=== PATIENT | female | born 1940 | race Caucasian/White ===

== ENCOUNTER 2017-11-22 13:04 | Emergency (ER) | payer MEDICARE, MEDICAID ==
[~2017-11-22] VITALS: Ht 149.9 cm; Wt 95.3 kg
[~2017-11-22 13:04] MED LIST: ACET325T49 PO; ATOR10TA66 PO; BUPR100T15 PO; BUPR100T6 PO; BUSP5TAB59 PO; CETI10TA20 PO; CLON0.1T PO; DILT180C PO; DOCU-143 PO; DULO20CA PO; DULO60CA6 PO; GABA300C PO; HYDR25SU28 RC; KETO5DRO70 OP; LACT1CAP64 PO; LEVE10006 PO; MAGN800O PO; MELA1TAB10 PO; METF1000 PO; METO-387 PO; MULT-301 PO; OMEP20TA7 PO; ONDN4T PO; PIOG30TA38 PO; WARF3TAB PO
--- OUTSIDE RECORDS SUMMARY | 2017-11-22 13:13 | XMS REPORT | CCD ---
Author Author [facility] Organization [facility] Address [address] [place] [address] Phone Care Team Providers Care Carroter Name Role Phone PP Unavailable CCM Unavailable Summary Purpose Interface Exchange Insurance Providers Payer name Policy type / Coverage type Covered green party ID Effective Begin Date Effective End Date WPS Medicare Part B Medicare Part B [id number] Unknown Unknown [place] [employer] Assistance Medicare Part B [id number] Unknown Unknown Family history Mother Diagnosis Age At Onset Cancer Unknown Social History Social History Element Codes Description Effective Dates Marital status Unknown Merle 04/17/2016 Education level Unknown High School Graduate 04/17/2016 Number of children Unknown 5 07/26/2015 Living arrangements Unknown Group Home moved into [facility]107/26/2015 Employment Unknown Retired 07/26/[address]: 3182040 Quit over 10 years ago 07/26/[address]: 725168613 Never drinks alcohol 07/26/2015 Allergies, Adverse Reactions, Alerts Allergies, Adverse Reactions, Alerts data not found Past Medical History Illness Codes Condition Status Onset Date Resolved Date Anemia, unspecified ICD-9: 285.9 ICD-10: D64.9 Active 05/15/2017 Unknown Dysuria ICD-9: 788.1 ICD-10: R30.0 Active 05/14/2017 Unknown Essential (primary) hypertension ICD-9: 401.9 ICD-10: I10 Active 04/16/2016 Unknown Generalized abdominal pain ICD-9: 789.07 ICD-10: R10.84 Active 05/14/2017 Unknown Type 2 diabetes mellitus with other specified complication ICD-9: 250.80 ICD-10: E11.69 Active 04/16/2016 Unknown Impacted cerumen, bilateral ICD-9: 389.8 ICD-10: H61.23 Active 03/28/2016 Unknown Otalgia, right ear ICD -9: 388.70 ICD-10: H92.01 Active 03/28/2016 Unknown Hypertension Unknown Active 07/26/2015 Unknown Problems Condition Codes Effective Dates Condition Status Anemia, unspecified ICD-9: 285.9 ICD-10: D64.9 05/15/2017 Active Dysuria ICD-9: 788.1 ICD-10: R30.0 05/14/2017 Active Essential (primary) hypertension ICD-9: 401.9 ICD-10: I10 04/16/2016 Active Generalized abdominal pain ICD-9: 789.07 ICD-10: R10.84 05/14/2017 Active Type 2 diabetes mellitus with other specified complication ICD-9: 250.80 ICD-10: E11.69 04/16/2016 Active Impacted cerumen, bilateral ICD-9: 389.8 ICD-10: H61.23 03/28/2016 Active Otalgia, right ear ICD -9: 388.70 ICD-10: H92.01 03/28/2016 Active Hypertension Unknown 07/26/2015 Active Medications Medication Codes Instructions Start Date Stop Date Status Fill Instructions Cymbalta 60 mg capsule,delayed release RxNorm: 441220 1 Capsule(s) PO QAM 10/21/2017 04/18/2018 Active Neurontin 300 mg capsule RxNorm: 954391 TAKE ONE CAPSULE BY MOUTH FOUR TIMES A DAY FOR CONVULSIONS 10/21/2017 No Stop Date Active diltiazem CD 180 mg capsule,extended release 24 hr RxNorm: 081127 TAKE ONE CAPSULE BY MOUTH EVERY MORNING FOR HTN 09/24/2017 No Stop Date Active levetiracetam 1,000 mg tablet RxNorm: 910705 TAKE ONE TABLET BY MOUTH 2 TIMES A DAY FOR CONVULSIONS 09/24/2017 No Stop Date Active atorvastatin 10 mg tablet RxNorm: 887669 TAKE ONE TABLET BY MOUTH EVERY DAY AT BEDTIME FOR HYPERLIPIDEMIA 09/24/2017 No Stop Date Active Cymbalta 20 mg capsule,delayed release RxNorm: 517471 1 Capsule(s) PO QPM 09/19/2017 03/17/2018 Active Coumadin 4 mg tablet RxNorm: 855176 1 Tablet(s) PO every other day 08/21/2017 02/16/2018 Active metoprolol succinate ER 25 mg tablet,extended release 24 hr RxNorm: 321653 1 Tablet(s) PO daily 08/12/2017 02/07/2018 Active doxycycline hyclate 100 mg capsule RxNorm: 7113332 1 Capsule(s) PO BID 07/26/2017 07/25/2017 Inactive doxycycline hyclate 100 mg capsule RxNorm: 6401881 1 Capsule(s) PO BID 07/26/2017 08/01/2017 Inactive probiotic BID with antibiotic Actos 30 mg tablet RxNorm: 263776 TAKE ONE TABLET BY MOUTH EVERY DAY AT BEDTIME FOR DM 07/24/2017 08/13/2017 Inactive BuSpar 5 mg tablet RxNorm: 297470 TAKE ONE TABLET BY MOUTH 2 TIMES A DAY FOR ANXIETY 07/15/2017 No Stop Date Active metformin 1,000 mg tablet RxNorm: 016413 1 Tablet(s) PO BID 07/09/2018 Active cyanocobalamin (vit B-12) 1,000 mcg/mL injection solution RxNorm: 699820 1 Milliliter(s) Inj monthly 07/12/201712/08 Active cyanocobalamin (vit B-12) 1,000 mcg/mL injection solution RxNorm: 801605 1 Milliliter(s) Inj monthly 07/12/201707/11 Inactive Cymbalta 60 mg capsule,delayed release RxNorm: 018875 1 Capsule(s) PO QAM 06/14/2017 10/11/2017 Inactive Cymbalta 20 mg capsule,delayed release RxNorm: 171608 1 Capsule(s) PO QPM 06/14/2017 08/28/2017 Inactive Rocephin 500 mg solution for injection RxNorm: 215449 500 Milligram(s) IM daily 05/17/2017 05/23/2017 Inactive Levaquin 500 mg tablet RxNorm: 340046 1 Tablet(s) PO daily 05/16/2017 Inactive Take probiotic BID x7 days levetiracetam 1,000 mg tablet RxNorm: 242800 TAKE ONE TABLET BY MOUTH 2 TIMES A DAY FOR CONVULSIONS 05/15/2017 09/23/2017 Inactive Neurontin 300 mg capsule RxNorm: 074733 TAKE ONE CAPSULE BY MOUTH FOUR TIMES A DAY FOR CONVULSIONS 05/07/2017 10/20/2017 Inactive diltiazem CD 180 mg capsule,extended release 24 hr RxNorm: 738189 TAKE ONE CAPSULE BY MOUTH EVERY MORNING FOR HTN 05/06/2017 09/23/2017 Inactive Coumadin 3 mg tablet RxNorm: 839696 TAKE ONE TABLET BY MOUTH AT BEDTIME 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 05/02/2017 No Stop Date Active Cymbalta 20 mg capsule,delayed release RxNorm: 288865 1 Capsule(s) PO daily 05/02/2017 06/13/2017 Inactive Actos 30 mg tablet RxNorm: 794409 TAKE ONE TABLET BY MOUTH EVERY DAY AT BEDTIME FOR DM 05/02/2017 07/23/2017 Inactive Wellbutrin 100 mg tablet RxNorm: 528229 TAKE 0.5 TABLET (50MG) BY MOUTH 3 TIMES A DAY FOR MAJOR DEPRESSIVE DISORDER 04/30/2017 No Stop Date Active atorvastatin 10 mg tablet RxNorm: 318528 TAKE ONE TABLET BY MOUTH EVERY DAY AT BEDTIME FOR HYPERLIPIDEMIA 04/30/201709/2017 Inactive BuSpar 5 mg tablet RxNorm: 883643 TAKE ONE TABLET BY MOUTH 2 TIMES A DAY FOR ANXIETY 04/29/2017 07/14/2017 Inactive metoprolol succinate ER 25 mg tablet,extended release 24 hr RxNorm: 666013 1 Tablet(s) PO daily 04/24/2017 07/22/2017 Inactive metformin 1,000 mg tablet RxNorm: 823236 1 Tablet(s) PO BID 10/201607/14/2017 Inactive Coumadin 4 mg tablet RxNorm: 687681 1 Tablet(s) PO every other day 04/24/2017 07/22/2017 Inactive hydrocodone 5 mg-acetaminophen 325 mg tablet RxNorm: 969890 1 Tablet(s) PO Q4H as needed 02/15/2017 No Stop Date Active hydrocodone 5 mg-acetaminophen 325 mg tablet RxNorm: 021538 1 Tablet(s) PO Q4H as needed 12/31/2016 02/14/2017 Inactive hydrocodone 5 mg-acetaminophen 325 mg tablet RxNorm: 390379 1 Tablet(s) PO Q4H as needed 11/23/2016 12/30/2016 Inactive hydrocodone 5 mg-acetaminophen 325 mg tablet RxNorm: 286221 1 Tablet(s) PO Q4H as needed 09/03/2016 11/22/2016 Inactive atorvastatin 10 mg tablet RxNorm: 663954 1 Tablet(s) PO QHS 04/29/2017 Inactive Coumadin 3 mg tablet RxNorm: 933436 Tablet(s) TAKE ONE TABLET ON Saturday04/17/2016 05/01/2017 Inactive hydrocodone 5 mg-acetaminophen 325 mg tablet RxNorm: 489482 1 Tablet(s) PO Q4H as needed 04/02/2016 09/02/2016 Inactive hydrocodone 5 mg-acetaminophen 325 mg tablet RxNorm: 475111 1 Tablet(s) PO Q4H as needed 03/28/2016 04/01/2016 Inactive Coumadin 3 mg tablet RxNorm: 263588 TAKE 1 TABLET BY MOUTH DAILY 09/26/2015 03/29/2016 Inactive Generic For:COUMADIN 3 MG TABLET N O T I C E Last quantity doesn't match original quantity Coumadin 3 mg tablet RxNorm: 616518 TAKE 1 TABLET BY MOUTH DAILY 09/13/2015 09/25/2015 Inactive Generic For:COUMADIN 3 MG TABLET N O T I C E PRESCRIPTION PREVIOUSLY AUTHORIZED BY DOCTOR:HEIDI HERNANDEZ Wellbutrin 100 mg tablet RxNorm: 168178 1/2 Tablet(s) PO TID 12/14/2015 Inactive Cipro 500 mg tablet RxNorm: 846943 1 Tablet(s) PO BID 201408/15/2015 Inactive BuSpar 5 mg tablet RxNorm: 035790 TAKE 1 TABLET BY MOUTH TWICE DAILY NEEDED FOR ANXIETY MANAGEMENT 08/06/20152015 Inactive Generic For:BUSPAR 5 MG TABLET N O T I C E PRESCRIPTION PREVIOUSLY AUTHORIZED BY DOCTOR:HEIDI HERNANDEZ iron 325 mg (65 mg iron) tablet RxNorm: 354571 1 Tablet(s) PO daily No Start Date Active Multivitamin & Mineral Formula tablet RxNorm: 1 Tablet(s) PO No Start Date Active Tylenol 8 Hour 650 mg tablet,extended release RxNorm: 2274959 1 Tablet(s) PO TID No Start Date Active omeprazole 20 mg capsule,delayed release RxNorm: 894222 1 Capsule(s) PO daily No Start Date Active Zyrtec 10 mg tablet RxNorm: 9682801 1 Tablet(s) PO daily No Start Date Active melatonin 3 mg tablet RxNorm: 215545 1 Tablet(s) PO QHS No Start Date Active hydrocodone 5 mg-acetaminophen 325 mg tablet RxNorm: 773005 1 Tablet(s) PO Q4H as needed No Start Date 03/27/2016 Inactive levetiracetam 1,000 mg tablet RxNorm: 437937 1 Tablet(s) PO BID No Start Date 05/14/2017 Inactive Coumadin 4 mg tablet RxNorm: 437065 Tablet(s) PO TAKE ONE TABLET DAILY EXCEPT ON SATURDAY No Start Date 04/23/2017 Inactive Cymbalta 60 mg capsule,delayed release RxNorm: 452172 1 Capsule(s) PO daily No Start Date 05/01/2017 Inactive Actos 30 mg tablet RxNorm: 607433 1 Tablet(s) PO daily No Start Date 05/01/2017 Inactive metoprolol succinate ER 25 mg tablet,extended release 24 hr RxNorm: 701446 1 Tablet(s) PO daily No Start Date 2016 Inactive diltiazem CD 180 mg capsule,extended release 24 hr RxNorm: 218528 1 Capsule(s) PO daily No Start Date 05/05/2017 Inactive Neurontin 300 mg capsule RxNorm: 287791 1 Capsule(s) PO QID No Start Date 05/06/2017 Inactive BuSpar 5 mg tablet RxNorm: 531972 1 Tablet(s) PO BID No Start Date 08/05/2015 Inactive Coumadin 3 mg tablet RxNorm: 327891 1 Tablet(s) PO daily No Start Date 09/12/2015 Inactive metformin 1,000 mg tablet RxNorm: 938245 1 Tablet(s) PO BID No Start Date 04/23/2017 Inactive bupropion HCl 100 mg tablet RxNorm: 156547 1 Tablet(s) PO BID No Start Date 04/17/2016 Inactive atorvastatin 10 mg tablet RxNorm: 005887 1 Tablet(s) PO PRN No Start Date 04/16/2016 Inactive Medication Administered No Medication Administered data Immunizations No Immunization data Assessments Condition Codes Effective Dates Anemia, unspecified ICD-10: D64.9 ICD-9: 285.9 05/15/2017 Essential (primary) hypertension ICD-10: I10 ICD-9: 401.9 05/14/2017 Generalized abdominal pain ICD-10: R10.84 ICD-9: 789.07 05/14/2017 Dysuria ICD-10: R30.0 ICD-9: 788.1 05/14/2017 Type 2 diabetes mellitus with other specified complication ICD-10: E11.69 ICD-9: 250.80 05/14/2017 Otalgia, right ear ICD-10: H92.01 ICD-9: 388.70 03/29/2016 Impacted cerumen, bilateral ICD-10: H61.23 ICD-9: 389.8 03/29/2016 Reason For Visit Reason For Visit Effective Dates Notes abdominal pain 05/14/2017 earache 04/17/2016 earache 03/29/2016 cyst 07/26/2015 on the back of her neck Results Observation Observation Code Item Item Code Result Date Tibc Ord40 Iron 59 ug/dl 05/15/2017 Tibc Ord40 UIBC 292 ug/dL 05/15/2017 Tibc Ord40 TIBC 351 ug/dL 05/15/2017 Tibc Ord40 Fe-%Sat 16.8 % 05/15/2017 Ferritin Ord22 FERRITIN 12.8 ng/mL 05/15/2017 B12 Fwo147 B12 108.00 pg/ml 05/15/2017 Comp Metabolic Hde193 NA 140 mEq/L 05/14/2017 Comp Metabolic Xif411 K 4.0 mEq/L 05/14/2017 Comp Metabolic Zsv072 CL 103 mEq/L 05/14/2017 Comp Metabolic Vpx368 CO2 27.0 mEq/L 05/14/2017 Comp Metabolic Vvn721 ANION GAP 14 05/14/2017 Comp Metabolic Hdq327 GLUCOSE 110 mg/dL 05/14/2017 Comp Metabolic Wxj063 Creat 1.1 mg/dL 05/14/2017 Comp Metabolic Tzh240 eGFR 54 ml/min/1.73m2 05/14/2017 Comp Metabolic Fgo646 BUN 20 mg/dL 05/14/2017 Comp Metabolic Bst122 B/C Ratio 18.9 Ratio 05/14/2017 Comp Metabolic Mxl006 CALCIUM 9.2 mg/dL 05/14/2017 Comp Metabolic Vne541 ALK PHOS 69 U/L 05/14/2017 Comp Metabolic Ibp580 AST(SGOT) 11 U/L 05/14/2017 Comp Metabolic Zyj312 ALT(SGPT) 8 U/L 05/14/2017 Comp Metabolic Tbo948 BILI T 0.2 mg/dL 05/14/2017 Comp Metabolic Gab286 ALBUMIN 3.6 g/dL 05/14/2017 Comp Metabolic Yaa413 TPRO 6.1 g/dL 05/14/2017 Comp Metabolic Vqj482 GLOB 2.5 g/dL 05/14/2017 Comp Metabolic Xcb132 A/G Ratio 1.4 Ratio 05/14/2017 Comp Metabolic Qfm429 Osmo 283 mOsmo 05/14/2017 Tsh Ord6 hTSH II 1.44 uIU/mL 05/14/2017 Cbc With Differential Ord2 WBC 7.15 K/ul 05/14/2017 Cbc With Differential Ord2 RBC 3.77 M/ul 05/14/2017 Cbc With Differential Ord2 HGB 10.9 g/dl 05/14/2017 Cbc With Differential Ord2 Neut% 62.2 % 05/14/2017 Cbc With Differential Ord2 HCT 34.5 % 05/14/2017 Cbc With Differential Ord2 MCV 91.5 fl 05/14/2017 Cbc With Differential Ord2 Lymph% 27.3 % 05/14/2017 Cbc With Differential Ord2 [place]% 6.3 % 05/14/2017 Cbc With Differential Ord2 MCH 28.9 pg 05/14/2017 Cbc With Differential Ord2 Eos% 3.9 % 05/14/2017 Cbc With Differential Ord2 MCHC 31.6 pg 05/14/2017 Cbc With Differential Ord2 PLT 326 K/ul 05/14/2017 Cbc With Differential Ord2 Baso% 0.3 % 05/14/2017 Cbc With Differential Ord2 RDW 15.9 % 05/14/2017 Cbc With Differential Ord2 Neut ABS# 4.45 K/ul 05/14/2017 Cbc With Differential Ord2 Lymph ABS# 1.95 K/ul 05/14/2017 Cbc With Differential Ord2 [place] ABS# 0.5 K/ul 05/14/2017 Cbc With Differential Ord2 Eos ABS# 0.3 K/ul 05/14/2017 Cbc With Differential Ord2 Baso ABS# 0.0 K/ul 05/14/2017 Tsh Ord6 hTSH II 2.33 uIU/mL 07/26/2015 Comp Metabolic Fhy783 NA 135 mEq/L 07/26/2015 Comp Metabolic Clg234 K 4.1 mEq/L 07/26/2015 Comp Metabolic Czm569 CL 100 mEq/L 07/26/2015 Comp Metabolic Nhx967 CO2 25.0 mEq/L 07/26/2015 Comp Metabolic Iae508 ANION GAP 14 07/26/2015 Comp Metabolic Ffn057 GLUCOSE 129 mg/dL 07/26/2015 Comp Metabolic Mlv035 Creat 1.2 mg/dL 07/26/2015 Comp Metabolic Jdv624 eGFR 45 ml/min/1.73m2 07/26/2015 Comp Metabolic Lfa200 BUN 17 mg/dL 07/26/2015 Comp Metabolic Ehh443 B/C Ratio 13.8 Ratio 07/26/2015 Comp Metabolic Vbe511 CALCIUM 9.3 mg/dL 07/26/2015 Comp Metabolic Tqf081 ALK PHOS 89 U/L 07/26/2015 Comp Metabolic Uki173 AST(SGOT) 13 U/L 07/26/2015 Comp Metabolic Tdk275 ALT(SGPT) 13 U/L 07/26/2015 Comp Metabolic Izs378 BILI T 0.2 mg/dL 07/26/2015 Comp Metabolic Aho664 ALBUMIN 3.6 g/dL 07/26/2015 Comp Metabolic Izu087 TPRO 6.2 g/dL 07/26/2015 Comp Metabolic Sxt062 GLOB 2.6 g/dL 07/26/2015 Comp Metabolic Mae012 A/G Ratio 1.4 Ratio 07/26/2015 Comp Metabolic Mqo456 Osmo 273 mOsmo 07/26/2015 %Hba1C Ljo848 % HbA1c 84427-6 7.1 % 07/26/2015 %Hba1C Pel854 Gluc Ave 157 mg/dL 07/26/2015 Cbc With Differential Ord2 WBC 7.3 K/uL 07/26/2015 Cbc With Differential Ord2 LYM 1.9 K/uL 07/26/2015 Cbc With Differential Ord2 LYM% 26.2 % 07/26/2015 Cbc With Differential Ord2 NEUT/GRAN 4.9 K/uL 07/26/2015 Cbc With Differential Ord2 NEUT/GRAN % 66.8 % 07/26/2015 Cbc With Differential Ord2 MID 0.5 K/uL 07/26/2015 Cbc With Differential Ord2 MID% 7.0 % 07/26/2015 Cbc With Differential Ord2 RBC 4.06 M/uL 07/26/2015 Cbc With Differential Ord2 HGB 11.3 g/dL 07/26/2015 Cbc With Differential Ord2 HCT 36.1 % 07/26/2015 Cbc With Differential Ord2 MCV 89 fL 07/26/2015 Cbc With Differential Ord2 MCH 28 pg 07/26/2015 Cbc With Differential Ord2 MCHC 31 g/dL 07/26/2015 Cbc With Differential Ord2 PLT 313 K/uL 07/26/2015 Cbc With Differential Ord2 RDW 15.9 % 07/26/2015 Pt Lge1950 PT 23.3 seconds 07/26/2015 Pt Rhn4466 INR 2.1 07/26/2015 Pt Sfu4475 Low Intensity - 1.5-2.0 07/26/2015 Pt Sku3712 Mod intensity - 2.0-3.0 07/26/2015 Pt Xnl1103 Hi intensity - 3.0-4.0 07/26/2015 Review of Systems System Result Effective Dates Gastrointestinal abdominal pain 2016 Gastrointestinal constipation 05/14/2017 Gastrointestinal No diarrhea 05/14/2017 Gastrointestinal No vomiting 05/14/2017 Gastrointestinal No nausea 05/14/2017 Gastrointestinal No gastroesophageal reflux 05/14/2017 Genitourinary/Nephrology dysuria 2016 Respiratory No cough 05/14/2017 Cardiovascular No chest pain/pressure Cardiovascular No dyspnea 05/14/2017 Constitutional No recent illness 2016 Constitutional No anorexia 05/14/2017 Constitutional No night sweats 2016 Constitutional No chills 05/14/2017 Constitutional No diaphoresis 05/14/2017 Constitutional No fatigue 05/14/2017 Constitutional No fever 05/14/2017 Constitutional No insomnia 05/14/2017 Constitutional No malaise 05/14/2017 Constitutional No weight loss 05/14/2017 Constitutional No weight gain 05/14/2017 Eyes No eye discharge 05/14/2017 Eyes No eye erythema 05/14/2017 Ears/Nose/Throat/Neck No dizziness 2016 Ears/Nose/Throat/Neck No headache 2016 Musculoskeletal No joint complaint 2016 Dermatologic No rash 05/14/2017 Dermatologic No sores 05/14/2017 Neurologic memory loss 05/14/2017 Psychiatric disturbances of memory 2016 Endocrine diabetes mellitus type 2 2016 Hematologic/Lymphatic No abnormal bleeding and bruising 05/14/2017 Constitutional No recent illness 2015 Constitutional No chills 04/17/2016 Constitutional No fatigue 04/17/2016 Constitutional No fever 04/17/2016 Constitutional malaise 04/17/2016 Eyes No blindness 04/17/2016 Eyes No vision change 04/17/2016 Ears/Nose/Throat/Neck No dizziness 2015 Ears/Nose/Throat/Neck No dysphagia 2015 Ears/Nose/Throat/Neck No headache 2015 Ears/Nose/Throat/Neck No hearing loss Ears/Nose/Throat/Neck No nasal allergies 04/17/2016 Ears/Nose/Throat/Neck No sore throat Ears/Nose/Throat/Neck No postnasal drip 04/17/2016 Ears/Nose/Throat/Neck No sinus congestion 04/17/2016 Cardiovascular No chest pain/pressure Cardiovascular No dyspnea 04/17/2016 Cardiovascular No edema 04/17/2016 Cardiovascular fatigue 04/17/2016 Respiratory No chest tightness 2015 Respiratory No cough 04/17/2016 Respiratory No dyspnea 04/17/2016 Respiratory No pedal edema 04/17/2016 Gastrointestinal No abdominal pain 2015 Gastrointestinal No constipation 2015 Gastrointestinal No diarrhea 04/17/2016 Gastrointestinal No gastroesophageal reflux 04/17/2016 Genitourinary/Nephrology No dysuria 04/17 Genitourinary/Nephrology No nocturia Genitourinary/Nephrology urinary incontinence 04/17/2016 Musculoskeletal stiffness 04/17/2016 Musculoskeletal No swelling 04/17/2016 Musculoskeletal muscle weakness 2015 Musculoskeletal No myalgias 04/17/2016 Dermatologic No rash 04/17/2016 Dermatologic sores 04/17/2016 Neurologic No headache 04/17/2016 Neurologic No neck pain 04/17/2016 Neurologic No syncope 04/17/2016 Psychiatric No anxiety 04/17/2016 Psychiatric No depression 04/17/2016 Eyes No eye erythema 03/29/2016 Eyes No vision change 03/29/2016 Ears/Nose/Throat/Neck No sore throat 03/2016 Ears/Nose/Throat/Neck No postnasal drip 03/29/2016 Ears/Nose/Throat/Neck No sinus congestion 03/29/2016 Cardiovascular No chest pain/pressure 03/2016 Cardiovascular No dyspnea 03/29/2016 Respiratory No cough 03/29/2016 Gastrointestinal No abdominal pain 2015 Constitutional No fever 03/29/2016 Ears/Nose/Throat/Neck otalgia 03/29/2016 Respiratory No dyspnea 03/29/2016 Neurologic No alteration of consciousness 03/29/2016 Neurologic No mental status change 2015 Constitutional No recent illness 2014 Constitutional No chills 07/26/2015 Constitutional No fatigue 07/26/2015 Constitutional No fever 07/26/2015 Constitutional malaise 07/26/2015 Eyes No blindness 07/26/2015 Eyes No vision change 07/26/2015 Ears/Nose/Throat/Neck No dizziness 2014 Ears/Nose/Throat/Neck No dysphagia 2014 Ears/Nose/Throat/Neck No headache 2014 Ears/Nose/Throat/Neck No hearing loss 11/2014 Ears/Nose/Throat/Neck No nasal allergies 07/26/2015 Ears/Nose/Throat/Neck No sore throat 11/2014 Ears/Nose/Throat/Neck No postnasal drip 07/26/2015 Ears/Nose/Throat/Neck No sinus congestion 07/26/2015 Cardiovascular No chest pain/pressure 11/2014 Cardiovascular No dyspnea 07/26/2015 Cardiovascular No edema 07/26/2015 Cardiovascular fatigue 07/26/2015 Respiratory No chest tightness 2014 Respiratory No cough 07/26/2015 Respiratory No dyspnea 07/26/2015 Respiratory No pedal edema 07/26/2015 Gastrointestinal No abdominal pain 2014 Gastrointestinal No constipation 2014 Gastrointestinal No diarrhea 07/26/2015 Gastrointestinal No gastroesophageal reflux 07/26/2015 Genitourinary/Nephrology No dysuria 07/26 Genitourinary/Nephrology No nocturia 11/2014 Genitourinary/Nephrology urinary incontinence 07/26/2015 Musculoskeletal stiffness 07/26/2015 Musculoskeletal No swelling 07/26/2015 Musculoskeletal muscle weakness 2014 Musculoskeletal No myalgias 07/26/2015 Dermatologic No rash 07/26/2015 Dermatologic sores 07/26/2015 Neurologic No headache 07/26/2015 Neurologic No neck pain 07/26/2015 Neurologic No syncope 07/26/2015 Psychiatric No anxiety 07/26/2015 Psychiatric No depression 07/26/2015 Physical Exam Exam Name System Name Item Name Status Result Effective Dates Notes Full Exam - General 1994 Constitutional general appearance Development: well developed 05/14/2017 None Full Exam - General 1994 Constitutional general appearance Development: appears stated age 0805/14/2017 None Full Exam - General 1994 Constitutional general appearance Hygiene/Attention to Grooming: good hygiene 05/14/2017 None Full Exam - General 1994 Eyes conjunctiva /eyelids Overall: conjunctiva clear 05/14/2017 None Full Exam - General 1994 Eyes conjunctiva /eyelids Overall: cornea clear 05/14/2017 None Full Exam - General 1994 Eyes conjunctiva /eyelids Overall: eyelids normal 05/14/2017 None Full Exam - General 1994 Eyes pupils and irises Overall: pupils equal, round, reactive to light and accomodation 05/14/2017 None Full Exam - General 1994 Ears/Nose/Throat otoscopic exam Overall: external auditory canals clear 05/14/2017 None Full Exam - General 1994 Ears/Nose/Throat otoscopic exam Overall: tympanic membranes clear 05/14/2017 None Full Exam - General 1994 Ears/Nose/Throat lips/teeth/gingiva Overall: benign lips 05/14/2017 None Full Exam - General 1994 Ears/Nose/Throat lips/teeth/gingiva Overall: normal dentition 05/14/2017 None Full Exam - General 1994 Ears/Nose/Throat oral cavity/pharynx/larynx Overall: oral mucosa clear 05/14/2017 None Full Exam - General 1994 Ears/Nose/Throat oral cavity/pharynx/larynx Overall: oropharyngeal mucosa clear 05/14/2017 None Full Exam - General 1994 Ears/Nose/Throat oral cavity/pharynx/larynx Overall: hypopharynx benign 05/14/2017 None Full Exam - General 1994 Ears/Nose/Throat oral cavity/pharynx/larynx Overall: no masses 05/14/2017 None Full Exam - General 1994 Respiratory auscultation Overall: breath sounds clear bilaterally 05/14/2017 None Full Exam - General 1994 Respiratory respiratory effort/rhythm Overall: no retractions 05/14/2017 None Full Exam - General 1994 Respiratory respiratory effort/rhythm Overall: normal rate 05/14/2017 None Full Exam - General 1994 Cardiovascular extremities Overall: no clubbing 05/14/2017 None Full Exam - General 1994 Cardiovascular auscultation of heart Overall: regular rate 05/14/2017 None Full Exam - General 1994 Cardiovascular auscultation of heart Overall: normal heart sounds 05/14/2017 None Full Exam - General 1994 Abdomen abdominal exam Overall: normal bowel sounds 05/14/2017 None Full Exam - General 1994 Lymphatic neck nodes Overall: anterior cervical chain benign 05/14/2017 None Full Exam - General 1994 Lymphatic neck nodes Overall: posterior cervical chain benign 05/14/2017 None Full Exam - General 1994 Musculoskeletal spine, ribs and pelvis Overall: spine benign 05/14/2017 None Full Exam - General 1994 Musculoskeletal spine, ribs and pelvis Overall: sacroiliac joint benign 05/14/2017 None Full Exam - General 1994 Musculoskeletal spine, ribs and pelvis Overall: good posture 05/14/2017 None Full Exam - General 1994 Musculoskeletal head and neck Overall: head atraumatic 05/14/2017 None Full Exam - General 1994 Musculoskeletal head and neck Overall: cervical spine benign 05/14/2017 None Full Exam - General 1994 Neurologic deep tendon reflexes Overall: deep tendon reflexes intact 05/14/2017 None Full Exam - General 1994 Neurologic cranial nerves Overall: crainial nerves 2 - 12 grossly intact 05/14/2017 None Full Exam - General 1994 Psychiatric orientation/consciousness Overall: oriented to person, place and time 05/14/2017 None Full Exam - General 1994 Psychiatric mood and affect Overall: normal mood and affect 05/14/2017 None Full Exam - General 1994 Constitutional general appearance Assistive Device: wheelchair 05/14/2017 None Full Exam - General 1994 Cardiovascular extremities Edema present: pitting 05/14/2017 None Full Exam - General 1994 Cardiovascular extremities Edema present: severity 1+ - 4 +: trace 05/14/2017 None Full Exam - General 1994 Abdomen abdominal exam Contour: rounded 05/14/2017 None Full Exam - General 1994 Abdomen abdominal exam Upper quadrant: tender to palpation 05/14/2017 None Full Exam - General 1994 Constitutional general appearance Development: well developed 04/17/2016 None Full Exam - General 1994 Constitutional general appearance Development: appears stated age 0704/17/2016 None Full Exam - General 1994 Constitutional general appearance Hygiene/Attention to Grooming: good hygiene 04/17/2016 None Full Exam - General 1994 Eyes conjunctiva /eyelids Overall: conjunctiva clear 04/17/2016 None Full Exam - General 1994 Eyes conjunctiva /eyelids Overall: cornea clear 04/17/2016 None Full Exam - General 1994 Eyes conjunctiva /eyelids Overall: eyelids normal 04/17/2016 None Full Exam - General 1994 Eyes pupils and irises Overall: pupils equal, round, reactive to light and accomodation 04/17/2016 None Full Exam - General 1994 Ears/Nose/Throat otoscopic exam Overall: external auditory canals clear 04/17/2016 None Full Exam - General 1994 Ears/Nose/Throat otoscopic exam Overall: tympanic membranes clear 04/17/2016 None Full Exam - General 1994 Ears/Nose/Throat lips/teeth/gingiva Overall: benign lips 04/17/2016 None Full Exam - General 1994 Ears/Nose/Throat lips/teeth/gingiva Overall: normal dentition 04/17/2016 None Full Exam - General 1994 Ears/Nose/Throat oral cavity/pharynx/larynx Overall: oral mucosa clear 04/17/2016 None Full Exam - General 1994 Ears/Nose/Throat oral cavity/pharynx/larynx Overall: oropharyngeal mucosa clear 04/17/2016 None Full Exam - General 1994 Ears/Nose/Throat oral cavity/pharynx/larynx Overall: hypopharynx benign 04/17/2016 None Full Exam - General 1994 Ears/Nose/Throat oral cavity/pharynx/larynx Overall: no masses 04/17/2016 None Full Exam - General 1994 Respiratory auscultation Overall: breath sounds clear bilaterally 04/17/2016 None Full Exam - General 1994 Respiratory respiratory effort/rhythm Overall: no retractions 04/17/2016 None Full Exam - General 1994 Respiratory respiratory effort/rhythm Overall: normal rate 04/17/2016 None Full Exam - General 1994 Cardiovascular extremities Overall: no clubbing 04/17/2016 None Full Exam - General 1994 Cardiovascular auscultation of heart Overall: regular rate 04/17/2016 None Full Exam - General 1994 Cardiovascular auscultation of heart Overall: normal heart sounds 04/17/2016 None Full Exam - General 1994 Abdomen abdominal exam Overall: no tenderness 04/17/2016 None Full Exam - General 1994 Abdomen abdominal exam Overall: normal bowel sounds 04/17/2016 None Full Exam - General 1994 Lymphatic neck nodes Overall: anterior cervical chain benign 04/17/2016 None Full Exam - General 1994 Lymphatic neck nodes Overall: posterior cervical chain benign 04/17/2016 None Full Exam - General 1994 Musculoskeletal spine, ribs and pelvis Overall: spine benign 04/17/2016 None Full Exam - General 1994 Musculoskeletal spine, ribs and pelvis Overall: sacroiliac joint benign 04/17/2016 None Full Exam - General 1994 Musculoskeletal spine, ribs and pelvis Overall: good posture 04/17/2016 None Full Exam - General 1994 Musculoskeletal head and neck Overall: head atraumatic 04/17/2016 None Full Exam - General 1994 Musculoskeletal head and neck Overall: cervical spine benign 04/17/2016 None Full Exam - General 1994 Integument inspection of skin Dermatitis: pustule 04/17/2016 - sebaceous lesion on posterior neck on right side - Full Exam - General 1994 Neurologic deep tendon reflexes Overall: deep tendon reflexes intact 04/17/2016 None Full Exam - General 1994 Neurologic cranial nerves Overall: crainial nerves 2 - 12 grossly intact 04/17/2016 None Full Exam - General 1994 Psychiatric orientation/consciousness Overall: oriented to person, place and time 04/17/2016 None Full Exam - General 1994 Psychiatric mood and affect Overall: normal mood and affect 04/17/2016 None Full Exam - General 1994 Constitutional general appearance Development: well developed 03/29/2016 None Full Exam - General 1994 Constitutional general appearance Development: appears stated age 0703/29/2016 None Full Exam - General 1994 Constitutional general appearance Hygiene/Attention to Grooming: good hygiene 03/29/2016 None Full Exam - General 1994 Eyes conjunctiva /eyelids Overall: conjunctiva clear 03/29/2016 None Full Exam - General 1994 Eyes conjunctiva /eyelids Overall: cornea clear 03/29/2016 None Full Exam - General 1994 Eyes conjunctiva /eyelids Overall: eyelids normal 03/29/2016 None Full Exam - General 1994 Eyes pupils and irises Overall: pupils equal, round, reactive to light and accomodation 03/29/2016 None Full Exam - General 1994 Ears/Nose/Throat lips/teeth/gingiva Overall: benign lips 03/29/2016 None Full Exam - General 1994 Ears/Nose/Throat lips/teeth/gingiva Overall: normal dentition 03/29/2016 None Full Exam - General 1994 Ears/Nose/Throat oral cavity/pharynx/larynx Overall: oral mucosa clear 03/29/2016 None Full Exam - General 1994 Respiratory auscultation Overall: breath sounds clear bilaterally 03/29/2016 None Full Exam - General 1994 Respiratory respiratory effort/rhythm Overall: no retractions 03/29/2016 None Full Exam - General 1994 Respiratory respiratory effort/rhythm Overall: normal rate 03/29/2016 None Full Exam - General 1994 Cardiovascular extremities Overall: no clubbing 03/29/2016 None Full Exam - General 1994 Cardiovascular auscultation of heart Overall: regular rate 03/29/2016 None Full Exam - General 1994 Cardiovascular auscultation of heart Overall: normal heart sounds 03/29/2016 None Full Exam - General 1994 Musculoskeletal spine, ribs and pelvis Overall: good posture 03/29/2016 None Full Exam - General 1994 Musculoskeletal head and neck Overall: head atraumatic 03/29/2016 None Full Exam - General 1994 Neurologic cranial nerves Overall: crainial nerves 2 - 12 grossly intact 03/29/2016 None Full Exam - General 1994 Psychiatric orientation/consciousness Overall: oriented to person, place and time 03/29/2016 None Full Exam - General 1994 Psychiatric mood and affect Overall: normal mood and affect 03/29/2016 None Full Exam - General 1994 Ears/Nose/Throat otoscopic exam Overall: tympanic membranes clear 03/29/2016 None Full Exam - General 1994 Ears/Nose/Throat otoscopic exam Overall: external auditory canals clear 03/29/2016 after removal of cerumen Full Exam - General 1994 Ears/Nose/Throat otoscopic exam External auditory canal: complete cerumen impaction 03/29/2016 None Full Exam - General 1994 Psychiatric appearance Overall: well-groomed, good eye contact 03/29/2016 None Full Exam - General 1994 Constitutional general appearance Development: well developed 07/26/2015 None Full Exam - General 1994 Constitutional general appearance Development: appears stated age 1107/26/2015 None Full Exam - General 1994 Constitutional general appearance Hygiene/Attention to Grooming: good hygiene 07/26/2015 None Full Exam - General 1994 Eyes conjunctiva /eyelids Overall: conjunctiva clear 07/26/2015 None Full Exam - General 1994 Eyes conjunctiva /eyelids Overall: cornea clear 07/26/2015 None Full Exam - General 1994 Eyes conjunctiva /eyelids Overall: eyelids normal 07/26/2015 None Full Exam - General 1994 Eyes pupils and irises Overall: pupils equal, round, reactive to light and accomodation 07/26/2015 None Full Exam - General 1994 Ears/Nose/Throat otoscopic exam Overall: external auditory canals clear 07/26/2015 None Full Exam - General 1994 Ears/Nose/Throat otoscopic exam Overall: tympanic membranes clear 07/26/2015 None Full Exam - General 1994 Ears/Nose/Throat lips/teeth/gingiva Overall: benign lips 07/26/2015 None Full Exam - General 1994 Ears/Nose/Throat lips/teeth/gingiva Overall: normal dentition 07/26/2015 None Full Exam - General 1994 Ears/Nose/Throat oral cavity/pharynx/larynx Overall: oral mucosa clear 07/26/2015 None Full Exam - General 1994 Ears/Nose/Throat oral cavity/pharynx/larynx Overall: oropharyngeal mucosa clear 07/26/2015 None Full Exam - General 1994 Ears/Nose/Throat oral cavity/pharynx/larynx Overall: hypopharynx benign 07/26/2015 None Full Exam - General 1994 Ears/Nose/Throat oral cavity/pharynx/larynx Overall: no masses 07/26/2015 None Full Exam - General 1994 Respiratory auscultation Overall: breath sounds clear bilaterally 07/26/2015 None Full Exam - General 1994 Respiratory respiratory effort/rhythm Overall: no retractions 07/26/2015 None Full Exam - General 1994 Respiratory respiratory effort/rhythm Overall: normal rate 07/26/2015 None Full Exam - General 1994 Cardiovascular extremities Overall: no clubbing 07/26/2015 None Full Exam - General 1994 Cardiovascular auscultation of heart Overall: regular rate 07/26/2015 None Full Exam - General 1994 Cardiovascular auscultation of heart Overall: normal heart sounds 07/26/2015 None Full Exam - General 1994 Abdomen abdominal exam Overall: no tenderness 07/26/2015 None Full Exam - General 1994 Abdomen abdominal exam Overall: normal bowel sounds 07/26/2015 None Full Exam - General 1994 Lymphatic neck nodes Overall: anterior cervical chain benign 07/26/2015 None Full Exam - General 1994 Lymphatic neck nodes Overall: posterior cervical chain benign 07/26/2015 None Full Exam - General 1994 Musculoskeletal spine, ribs and pelvis Overall: spine benign 07/26/2015 None Full Exam - General 1994 Musculoskeletal spine, ribs and pelvis Overall: sacroiliac joint benign 07/26/2015 None Full Exam - General 1994 Musculoskeletal spine, ribs and pelvis Overall: good posture 07/26/2015 None Full Exam - General 1994 Musculoskeletal head and neck Overall: head atraumatic 07/26/2015 None Full Exam - General 1994 Musculoskeletal head and neck Overall: cervical spine benign 07/26/2015 None Full Exam - General 1994 Neurologic deep tendon reflexes Overall: deep tendon reflexes intact 07/26/2015 None Full Exam - General 1994 Neurologic cranial nerves Overall: crainial nerves 2 - 12 grossly intact 07/26/2015 None Full Exam - General 1994 Psychiatric orientation/consciousness Overall: oriented to person, place and time 07/26/2015 None Full Exam - General 1994 Psychiatric mood and affect Overall: normal mood and affect 07/26/2015 None Full Exam - General 1994 Integument inspection of skin Dermatitis: pustule 07/26/2015 - sebaceous lesion on posterior neck on right side - Procedures No Procedures data Vital Signs Date Vital 05/14/2017 Blood Pressure 1: 132/68 Code : 8480-6 Heart Rate 1: 82 bpm Height: SpO2: 98% Weight: 177 lbs 04/17/2016 Blood Pressure 1: 150/70 Code : 8480-6 Heart Rate 1: 84 bpm Height: SpO2: 98% Weight: 03/29/2016 Blood Pressure 1: 146/78 Code : 8480-6 Heart Rate 1: 110 bpm SpO2: 98% 07/26/2015 Blood Pressure 1: 124/60 Code : 8480-6 Heart Rate 1: 79 bpm SpO2: 97% Functional Status No Functional Status data History of Present Illness Symptom Name Status Result Effective Date Notes abdominal pain Location in the RUQ 05/14/2017 None abdominal pain Quality aching 05/14/2017 None abdominal pain Quality sharp 05/14/2017 None abdominal pain Quality constant 05/14/2017 None abdominal pain Onset and Resolution sudden in onset 05/14/2017 None abdominal pain Onset of Symptom 1 weeks ago 05/14/2017 None abdominal pain Frequency of Episodes daily 05/14/2017 None abdominal pain Timing of Episodes all day long 05/14/2017 None earache Location left ear 04/17/2016 None earache Quality acute 04/17/2016 None earache Quality stabbing 04/17/2016 None earache Onset and Resolution sudden in onset 04/17/2016 None earache Onset of Symptom 5 days ago 04/17/2016 None hypertension Onset and Resolution ongoing 04/17/2016 None hypertension Onset of Symptom during adulthood 04/17/2016 None hypertension Pertinent Findings dizziness 04/17/2016 (occasional) hypertension Pertinent Findings Denies dyspnea 04/17/2016 None hypertension Pertinent Findings edema 04/17/2016 None diabetes mellitus Pertinent Findings Denies nausea 04/17/2016 None hypertension Alleviating Factors medication 04/17/2016 None diabetes mellitus Quality non-insulin dependent 04/17/2016 None diabetes mellitus Test results Pt checking blood glucose readings, did not bring results to clinic 04/17/2016 None diabetes mellitus Alleviating Factors medication 04/17/2016 None diabetes mellitus Exacerbating Factors diet 04/17/2016 None medication follow up Location oral intake 04/17/2016 None medication follow up Additional Comments medication: COUMADIN 04/17/2016 None earache Location right ear 03/29/2016 None earache Quality stabbing 03/29/2016 None earache Quality sharp pain 03/29/2016 None earache Onset and Resolution ongoing 03/29/2016 None earache Onset of Symptom 2 weeks ago 03/29/2016 None cyst Quality firm 11/2014 None cyst Onset and Resolution ongoing 07/26/2015 None cyst Location on the midline of the neck 07/26/2015 None Advance Directives Advance Directives Present Encounters Encounter Performer Location Codes Date ([id number]) 30271 EST. PATIENT, LEVEL IV Diagnosis: Essential (primary) hypertension[ICD10: I10] Diagnosis: Generalized abdominal pain[ICD10: R10.84] Diagnosis: Type 2 diabetes mellitus with other specified complication[ICD10: E11.69] Diagnosis: Dysuria[ICD10: R30.0] Shelli Alcazar MD, [facility] CPT-4: 43530 05/14/2017 ([id number]) 01394 EST. PATIENT, LEVEL IV Diagnosis: Type 2 diabetes mellitus with other specified complication[ICD10: E11.69] Diagnosis: Essential (primary) hypertension[ICD10: I10] Rohini Alcazar MD, [facility] CPT-4: 29157 04/17/2016 46767 EST. PATIENT, LEVEL III Diagnosis: Otalgia, right ear[ICD10: H92.01] Diagnosis: Impacted cerumen, bilateral[ICD10: H61.23] Rody Alcazar MD, [facility] CPT-4: 42338 03/29/2016 ([id number]) OFFICE VISIT, NEW - LEVEL 4 Diagnosis: Type 2 diabetes mellitus with other specified complication[ICD10: E11.69] Diagnosis: Essential (primary) hypertension[ICD10: I10] Rohini Alcazar MD, [facility] CPT-4: 79801 07/26/2015 Plan of Care Planned Activity Notes Codes Status Date Patient Education: Patient Medication Summary Completed 05/15/2017 Visit Plan: Hypertension - well controlled - continue with current medications, continue with no added salt diet. Pt has been encouraged to exercise daily. The pt has been advised to call the office if there are any acute concerns about change in blood pressure readings at home. Abdominal pain- suspect constipation-get log of recent BMs-check labs and UA Dysuria-check UA DM -controlled-no changes 05/14/2017 Appointment: Shelli Lopez WPtel: [phone] [phone] (30 min) Complex 05/14/2017 Patient Education: Patient Medication Summary Completed 05/14/2017 Visit Plan: Hypertension - well controlled - continue with current medications, continue with no added salt diet. Pt has been encouraged to exercise daily. The pt has been advised to call the office if there are any acute concerns about change in blood pressure readings at home. Diabetes Mellitus - controlled - per recent FSBS reports. I have recommended for the patient to have follow up labs prior to the next office visit. The patient has been instructed to continue with current medications as previously directed, continue with regular FSBS monitoring to assure continued control of diabetes. Pt to call for any acute concerns, complaints, or if the blood glucose readings are starting to become less controlled. 04/17/2016 Appointment: Rohini Alcazar WPtel: [phone] [phone] (15 min) Moderate 04/17/2016 Patient Education: Patient Medication Summary Completed 04/17/2016 Patient Education: Hypertension Completed 04/17/2016 Visit Plan: Cerumen Impaction - The impacted cerumen was removed with the use of the ear currette. The patient tolerated the procedure without incident and had improvement in hearing and decreased pain. The wax was removed by the practitioner due to the wax being more complicated to remove, and staff was needed to assist the removal of the wax by holding the ear, and keeping patient stabilized during the removal process. 03/29/2016 Appointment: Rody Light WPtel: [phone] [phone] (30 min) Complex 03/29/2016 Patient Education: Patient Medication Summary Completed 03/29/2016 Visit Plan: Hypertension - well controlled - continue with current medications, continue with no added salt diet. Pt has been encouraged to exercise daily. The pt has been advised to call the office if there are any acute concerns about change in blood pressure readings at home. Chronic Depression and anxiety - the pt has symptoms of chronic anxiety and depression that have been fairly well controlled since the last office visit. The pt has expected periods of exacerbation with abatement of the symptoms with change in situational exposure. No change in current medications. Diabetes Mellitus - controlled - per recent FSBS reports. I have recommended for the patient to have follow up labs prior to the next office visit. The patient has been instructed to continue with current medications as previously directed, continue with regular FSBS monitoring to assure continued control of diabetes. Pt to call for any acute concerns, complaints, or if the blood glucose readings are starting to become less controlled. sebaceous cyst - referral to surgeon for removal of the lesion 07/26/2015 Patient Education: Patient Medication Summary Completed 07/26/2015 Patient Education: Hypertension Completed 07/26/2015 Referral: Shahram Resendiz WPtel:[phone] Referral Appointment Requested Instructions Comment . Hypertension - well controlled - continue with current medications, continue with no added salt diet. Pt has been encouraged to exercise daily. The pt has been advised to call the office if there are any acute concerns about change in blood pressure readings at home. Chronic Depression and anxiety - the pt has symptoms of chronic anxiety and depression that have been fairly well controlled since the last office visit. The pt has expected periods of exacerbation with abatement of the symptoms with change in situational exposure. No change in current medications. Diabetes Mellitus - controlled - per recent FSBS reports. I have recommended for the patient to have follow up labs prior to the next office visit. The patient has been instructed to continue with current medications as previously directed, continue with regular FSBS monitoring to assure continued control of diabetes. Pt to call for any acute concerns, complaints, or if the blood glucose readings are starting to become less controlled. sebaceous cyst - referral to surgeon for removal of the lesion . Cerumen Impaction - The impacted cerumen was removed with the use of the ear currette. The patient tolerated the procedure without incident and had improvement in hearing and decreased pain. The wax was removed by the practitioner due to the wax being more complicated to remove, and staff was needed to assist the removal of the wax by holding the ear, and keeping patient stabilized during the removal process. CHECK LABS UA WITH C&S IF INDICATED CALL IF ABDOMINAL PAIN PERSISTS . Hypertension - well controlled - continue with current medications, continue with no added salt diet. Pt has been encouraged to exercise daily. The pt has been advised to call the office if there are any acute concerns about change in blood pressure readings at home. Abdominal pain-suspect constipation-get log of recent BMs-check labs and UA Dysuria-check UA [id number] changes . Hypertension - well controlled - continue with current medications, continue with no added salt diet. Pt has been encouraged to exercise daily. The pt has been advised to call the office if there are any acute concerns about change in blood pressure readings at home. Diabetes Mellitus - controlled - per recent FSBS reports. I have recommended for the patient to have follow up labs prior to the next office visit. The patient has been instructed to continue with current medications as previously directed, continue with regular FSBS monitoring to assure continued control of diabetes. Pt to call for any acute concerns, complaints, or if the blood glucose readings are starting to become less controlled.
--- OUTSIDE RECORDS SUMMARY | 2017-11-22 13:14 | XMS REPORT | CCD ---
Author Author WAYLON WU Unknown Address [address] [place] [address] Care Team Providers Care Housekeeping Lead Name Role Phone JESSICA FLEMING MD Attphys JESSICA FLEMING MD Prisurg Allergies Allergy Code Allergy Type Reaction Status PCN (penicillin) 0 Drug allergy Active SHELLFISH 0 Food allergy Active CODEINE 2670 Drug allergy Active MORPHINE 7052 Drug allergy MAKES PAIN WORSE. Active Active Medications Medication Code Dose Units Frequency Route Modification Start Date/Time Actos 30MG Oral Tablet [id number] 30 MILLIGRAMS DAILY ORAL 08/19/2013 08:59 Prescription Detail 30 MILLIGRAMS ORAL DAILY Coumadin 5MG Oral Tablet [id number] 5 MILLIGRAMS COUMADIN AT 5:00 PM BY MOUTH 08/19/2013 08:59 Prescription Detail 5 MILLIGRAMS BY MOUTH COUMADIN AT 5:00 PM Cymbalta 60MG Oral Capsule, Delayed Release [id number] 60 MILLIGRAMS DAILY ORAL 08/19/2013 08:59 Prescription Detail 60 MILLIGRAMS ORAL DAILY Levetiracetam 500MG Oral Tablet 199454 9549 MILLIGRAMS TWO TIMES A DAY BY MOUTH 08/19/2013 08:59 Prescription Detail 1000 MILLIGRAMS BY MOUTH TWO TIMES A DAY Metformin 1000MG Oral Tablet [id number] 2195 MILLIGRAMS TWO TIMES A DAY ORAL 08/19/2013 08:59 Prescription Detail 1000 MILLIGRAMS ORAL TWO TIMES A DAY Tylenol 8 Hour 650MG Oral Tablet, Extended Release [id number] 650 MILLIGRAMS THREE TIMES A DAY ORAL 2012 08:59 Prescription Detail 650 MILLIGRAMS ORAL THREE TIMES A DAY Atorvastatin Calcium 10MG Oral Tablet 226121 10 MILLIGRAMS DAILY ORAL 06/05/2013 13:41 Prescription Detail 10 MILLIGRAMS ORAL DAILY Colace 100MG Oral Capsule, Liquid Filled [id number] 100 MILLIGRAMS TWO TIMES A DAY ORAL 06/05/2013 13:41 Prescription Detail 100 MILLIGRAMS ORAL TWO TIMES A DAY Diltiazem 180MG Oral Capsule, Extended Release [id number] 180 MILLIGRAMS AT BEDTIME ORAL 06/05/2013 13:41 Prescription Detail 180 MILLIGRAMS ORAL AT BEDTIME Glimepiride 4MG Oral Tablet [id number] 4 MILLIGRAMS TWO TIMES A DAY ORAL 06/05/2013 13:41 Prescription Detail 4 MILLIGRAMS ORAL TWO TIMES A DAY Metoprolol Tartrate 25MG Oral Tablet [id number] 25 MILLIGRAMS DAILY ORAL 06/05/2013 13:41 Prescription Detail 25 MILLIGRAMS ORAL DAILY Multivitamin Oral Tablet [id number] 1 EACH DAILY ORAL 06/05/2013 13:41 Prescription Detail 1 EACH ORAL DAILY Neurontin 300MG Oral Capsule [id number] 300 MILLIGRAMS FOUR TIMES A DAY ORAL 06/05/2013 13:41 Prescription Detail 300 MILLIGRAMS ORAL FOUR TIMES A DAY Prilosec 20MG Oral Capsule, Delayed Release [id number] 20 MILLIGRAMS DAILY ORAL 06/05/2013 13:41 Prescription Detail 20 MILLIGRAMS ORAL DAILY Wellbutrin 100MG Oral Tablet [id number] 100 MILLIGRAMS THREE TIMES A DAY ORAL 06/05/2013 13:41 Prescription Detail 100 MILLIGRAMS ORAL THREE TIMES A DAY Zyrtec 10MG Oral Tablet [id number] 10 MILLIGRAMS DAILY ORAL 06/05/2013 13:41 Prescription Detail 10 MILLIGRAMS ORAL DAILY Problems Problem Code Start Date Resolved Date Status ALTERED MENTAL STATUS 28162 Active Procedures Procedure Code Procedure Type Date CT HEAD W/O CONTRAST 783731361 SNOMED CT 12/15/2016 FEMUR; MIN [id number] 12/15/2016 HIP COMP MIN [id number] 12/15/2016 Results Unknown or Not Available. Encounters Encounter Diagnosis Diagnosis Code Start Date Iliofemoral ligament sprain of left hip, initial encounter [id number] 12/15/2016 Function Status Unknown or Not Available. History of Immunizations Immunization Code Date pneumococcal polysaccharide PPV23 33 11/20/2012 Influenza, high dose seasonal 135 11/20/2012 Plan of Treatment Unknown or Not Available. Social History Smoking Status Code Start Date End Date Never smoker [id number] Vital Signs Unknown or Not Available. Function Status Unknown or Not Available. Goals Unknown or Not Available. ASSESSMENTS Unknown or Not Available. Health Concerns Section Unknown or Not Available.
--- OUTSIDE RECORDS SUMMARY | 2017-11-22 13:14 | XMS REPORT | Continuity of Care Document ---
Author Author [facility] Organization [facility] Address Unknown Phone Unavailable Allergies Active Description Code Type Severity Reaction Onset Reported/Identified Relationship to Patient Clinical Status Yes codeine [id number] Drug Allergy Unknown N/A 09/22/2015 Yes morphine [id number] Drug Allergy Unknown N/A 09/22/2015 Yes Penicillins [id number] Drug Allergy Unknown N/A 09/22/2015 Yes propoxyphene [id number] Drug Allergy Unknown N/A 09/22/2015 Medications There is no data. Problems Date Dx Coded Attending Type Code Diagnosis Diagnosed By 09/22/2015 Ot 276.2 09/22/2015 Ot 799.1 09/22/2015 Ot 977.9 09/22/2015 Ot E858.9 09/22/2015 SHERMAN LIMA DO Ot L72.3 09/22/2015 SHERMAN LIMA DO Ot Z01.818 09/22/2015 SHERMAN LIMA DO Ot E11.9 09/22/2015 SHERMAN LIMA DO Ot L72.3 Procedures There is no data. Results There is no data. Encounters ACCT No. Visit Date/Time Discharge Status Pt. Type Provider Facility Loc./Unit Complaint [id number] 02/10/2014 11:59:31 02/10/2014 23:59:59 CLS Outpatient Jordin Trinidad [id number] 12/01/2013 14:37:21 12/01/2013 23:59:59 CLS Outpatient Trena Fisher [id number] 09/22/2015 06:14:00 09/22/2015 11:25:00 DIS Outpatient SHERMAN LIMA DO [facility] [id number] 09/20/2015 13:46:00 09/20/2015 23:59:59 CLS Outpatient SHERMAN LIMA DO Via [facility] PREOP [id number] 11/22/2017 13:08:00 ACT Emergency PRAVIN RAYMUNDO, EILEEN Kumari Via [facility] ER INCREASED CONFUSION/DECREASED APPETITE HEADACHE [id number] 02/07/2011 12:00:00 Document Registration
--- NOTE | 2017-11-22 16:53 | ED General ---
General Chief Complaint: Altered Mental Status Stated Complaint: INCREASED CONFUSION/DECREASED APPETITE HEADACHE Nursing Triage Note: c/o increasing confusion the last few days. Pt resides in the retirement. Hx of previous CVA. Nursing Sepsis Screen: No Definite Risk Source of Information: Patient Exam Limitations: No Limitations History of Present Illness Date Seen by Provider: Nov 22, 2017 Time Seen by Provider: 16:53 Allergies and Home Medications Allergies Coded Allergies: Penicillins (Unverified Allergy, Unknown, 09/22/15) codeine (Unverified Allergy, Unknown, 09/22/15) morphine (Unverified Allergy, Unknown, 09/22/15) propoxyphene (Unverified Allergy, Unknown, 09/22/15) Home Medications Acetaminophen 325 Mg Tablet, 650 MG PO Q4H PRN for PAIN, (Reported) Atorvastatin Calcium 10 Mg Tablet, 10 MG PO DAILY, (Reported) Bupropion HCl 100 Mg Tablet, 100 MG PO BID, (Reported) Bupropion HCl 100 Mg Tablet, 50 MG PO TID, (Reported) Buspirone HCl 5 Mg Tablet, 5 MG PO BID, (Reported) Cetirizine HCl 10 Mg Tablet, 10 MG PO DAILY, (Reported) Clonidine HCl 0.1 Mg Tablet, 0.1 MG PO PRN PRN for SYSTOLIC BLOOD PRESSURE, ( Reported) Diltiazem HCl 180 Mg Cap.er.24h, 180 MG PO DAILY, (Reported) Docusate Sodium 100 Mg Capsule, 100 MG PO BID PRN for CONSTIPATION, (Reported) Duloxetine HCl 20 Mg Cap, 20 MG PO DAILY, (Reported) Duloxetine HCl 60 Mg Capsule.dr, 60 MG PO DAILY, (Reported) Gabapentin 300 Mg Capsule, 300 MG PO QID, (Reported) Hydrocortisone Acetate 25 Mg Supp.rect, 25 MG RC Q12H PRN for HEMORRHOIDS, ( Reported) Ketotifen Fumarate 5 Ml Drops, 2 DROPS OP QID PRN for DRY EYES, (Reported) Lactobacillus Combo No.11 1 Each Cap.sprink, 1 EACH PO BID, (Reported) Levetiracetam 1,000 Mg Tablet, 1,000 MG PO BID, (Reported) Magnesium Hydroxide 2,400 Mg/10 Ml Oral.susp, 2,400 MG PO DAILY PRN for CONSTIPATION, (Reported) Melatonin/Pyridoxine 1 Each Tablet, 1 EACH PO HS, (Reported) Metformin HCl 1,000 Mg Tablet, 1,000 MG PO BID, (Reported) Metoprolol Succinate 25 Mg Tab.er.24h, 25 MG PO DAILY, (Reported) Multivitamin 1 Each Tablet, 1 EACH PO DAILY, (Reported) Omeprazole 20 Mg Tablet.dr, 20 MG PO DAILY, (Reported) Ondansetron HCl 4 Mg Tab, 4 MG PO Q8H PRN for NAUSEA/VOMITING, (Reported) Pioglitazone HCl 30 Mg Tablet, 30 MG PO DAILY, (Reported) Warfarin Sodium 3 Mg Tablet, 3 MG PO DAILY, (Reported) Past Qatzvab-Uklowz-Ravmgo Hx Patient Social History Recent Foreign Travel: No Contact w/Someone Who Travel: No Recent Infectious Disease Expo: No Immunizations Up To Date Date of Pneumonia Vaccine: Jul 26, 2014 Date of Influenza Vaccine: Jul 25, 2015 Reproductive System Hx Reproductive Disorders: No Sexually Transmitted Disease: No HIV/AIDS: No Female Reproductive Disorders: Denies Genitourinary Genitourinary Disorders: UTI-Chronic Gastrointestinal Gastrointestinal Disorders: Gastroesophageal Reflux, Pancreatitis Musculoskeletal Musculoskeletal Disorders: Contracture HEENT Loss of Vision: Bilateral Hearing Impairment: Denies Psychosocial Behavioral Health Disorders: Depression Blood Transfusions Adverse Reaction to a Blood Tr: No Physical Exam Vital Signs Vital Signs - First Documented 11/22/17 15:02 Temp 98.1 Pulse 80 Resp 16 B/P (MAP) 129/99 (109) O2 Delivery Room Air Capillary Refill : Less Than 3 Seconds Progress/Results/Core Measures Suspected Sepsis Recent Fever Within 48 Hours: No Infection Criteria Present: Suspected New Infection New/Unexplained Altered Menta: No Sepsis Screen: No Definite Risk Sepsis Diagnosis: SIRS Temperature:98.1 Pulse: 80 Respiratory Rate: 16 Blood Pressure 129 /99 Mean: 109 Results/Orders Lab Results Laboratory Tests Test 11/22/17 16:55 Range/Units Urine Color YELLOW Urine Clarity CLEAR Urine pH 5 5-9 Urine Specific [place] 1.005 L 1.016-1.022 Urine Protein NEGATIVE NEGATIVE Urine Glucose (UA) NEGATIVE NEGATIVE Urine Ketones NEGATIVE NEGATIVE Urine Nitrite POSITIVE H NEGATIVE Urine Bilirubin NEGATIVE NEGATIVE Urine Urobilinogen NORMAL NORMAL MG/DL Urine Leukocyte Esterase NEGATIVE NEGATIVE Urine RBC (Auto) 2+ H NEGATIVE Urine RBC NONE /HPF Urine WBC RARE /HPF Urine Squamous Epithelial Cells 2-5 /HPF Urine Crystals NONE /LPF Urine Bacteria FEW H /HPF Urine Casts NONE /LPF Urine Mucus NEGATIVE /LPF Urine Culture Indicated YES My Orders Orders - GRIS JEFFERSON Ct Head Wo (11/22/17 17:31) Nitrofurantoin Capsule,Macro (Macrobid C (11/22/17 18:30) Vital Signs/I&O Vital Sign - Last 12Hours 11/22/17 15:02 Temp 98.1 Pulse 80 Resp 16 B/P (MAP) 129/99 (109) O2 Delivery Room Air Capillary Refill : Less Than 3 Seconds Blood Pressure Mean: 109 Departure Impression Impression: Primary Impression: Urinary tract infection Disposition: HOME, SELF-CARE Condition: Improved Departure-Patient Inst. Decision time for Depature: 18:32 Referrals: RAJAT DE LOS SANTOS MD (PCP/Family) Primary Care Physician Patient Instructions: Urinary Tract Infection, Adult (DC) Add. Discharge Instructions: All discharge instructions reviewed with patient and/or family. Voiced understanding. Medications as instructed. Continue usual medications. Drink plenty of fluids. Follow-up with your primary care provider on Saturday for recheck. Call for appointment time. Return to the emergency department for worsened symptoms, fever, vomiting, rectal bleeding, black stools, vomiting blood, changes in behavior, slurred speech, increased facial drooping, seizure, shortness of air, dizziness, or any other concerns. Scripts Phenazopyridine HCl (Pyridium) 100 Mg Tablet 100 MG PO Q8H Y for pain, #14 TAB 0 Refills Prov: GRIS JEFFERSON 11/22/17 Nitrofurantoin Monohyd/M-Cryst (Macrobid 100 mg Capsule) 100 Mg Capsule 1 TAB PO BID, #14 CAP 0 Refills Prov: GRIS JEFFERSON 11/22/17 GRIS JEFFERSON Nov 22, 2017 16:53
[2017-11-22 17:00] LABS: BILIRUBIN,URINE NEGATIVE (NEGATIVE); CLARITY,URINE CLEAR; COLOR,URINE YELLOW; GLUCOSE, URINE (UA) NEGATIVE (NEGATIVE); KETONES,URINE NEGATIVE (NEGATIVE); LEUKOCYTE ESTERASE ,URINE NEGATIVE (NEGATIVE); NITRITE,URINE POSITIVE (NEGATIVE); PH,URINE 5 (5-9); PROTEIN,URINE NEGATIVE (NEGATIVE); UROBILINOGEN,URINE NORMAL (NORMAL)
[2017-11-22 17:08] LABS: BACTERIA,URINE FEW /HPF; WBC,URINE RARE /HPF
--- NOTE | 2017-11-22 18:08 | Diagnostic Imaging Report ---
Clinical indication: Patient increased confusion the last two days. Patient has history of CVA. Exam: Axial CT scan of the brain performed without IV contrast. Comparison: None. Findings: There is a large area of encephalomalacia with diffuse low-attenuation with fluid density involving the most of the right cerebral hemisphere with some sparing of the parasagittal right frontal lobe and anterior and basilar right frontal lobe regions. There is ex vacuo dilation of the right lateral ventricle. There is also some dystrophic appearing calcification in the right cerebral hemisphere region of encephalomalacia. There is some sparing of the right basal ganglia as well. There is no prior study to show chronicity of this finding, but it appears chronic. There is some focal and patchy areas of low-attenuation white matter changes involving the cerebral hemispheres which may just be related to chronic small vessel ischemic disease. There is no CT evidence of intracranial hemorrhage, acute cerebral infarct, brain herniation or hydrocephalus. Basal cisterns are unremarkable. Extracranial soft tissue, skull and orbits are unremarkable. Paranasal sinuses are clear. Temporal bone structures show no significant abnormality. Impression: 1: There is no definite CT evidence of interval acute cerebral infarction, intracranial hemorrhage, or mass seen. Given the diffuse low attenuation changes throughout the right cerebral hemisphere which can obscure more subtle findings, if there is clinical concern for acute cerebral infarction, MRI of the brain would better evaluate. 2: Large chronic cerebral infarct involving most of the right cerebral hemisphere with cystic encephalomalacia. 3: Mild chronic small vessel ischemic disease involving the left cerebral hemisphere. Dictated by: Dictated on workstation # [id number]
[2017-11-22] MEDS ORDERED: NITROFURANTOIN 100 MG (MACROBID) CAPSULE PO ONE (18:30)
[2017-11-22] MEDS ORDERED: NITR-65 PO (18:33)
[2017-11-22] MEDS ORDERED: PHEN-639 PO (18:33)
[2017-11-22 18:50] VITALS: BP 128/90
== END 2017-11-22 18:50 | disposition home or self-care (01) ==
LOC: EDUNIT# 13:04 → ER 13:08
DX: N39.0 Urinary tract infection, site not specified (principal); F32.9 Major depressive disorder, single episode, unspecified; K21.9 Gastro-esophageal reflux disease without esophagitis; Z79.84 Long term (current) use of oral hypoglycemic drugs; Z79.01 Long term (current) use of anticoagulants; Z88.0 Allergy status to penicillin; Z88.5 Allergy status to narcotic agent; Z88.6 Allergy status to analgesic agent; Z86.73 Personal history of transient ischemic attack (TIA), and cerebral infarction without residual deficits
CPT/HCPCS: 70450; 81000; 87088; 87186

== ENCOUNTER 2017-12-11 10:13 | Inpatient (IN) | payer MEDICARE, MEDICAID ==
[~2017-12-11] VITALS: Ht 149.9 cm; Wt 82.2 kg
[~2017-12-11 10:13] MED LIST changes: +NITR-65 PO; +PHEN-639 PO
--- OUTSIDE RECORDS SUMMARY | 2017-12-11 10:20 | XMS REPORT | Continuity of Care Document ---
Author Author [facility] Organization [facility] Address Unknown Phone Unavailable Allergies Active Description Code Type Severity Reaction Onset Reported/Identified Relationship to Patient Clinical Status Yes CODEINE [id number] DRUG N/A N/A Yes MORPHINE [id number] DRUG N/A MAKES PAIN WORSE. Yes PCN (penicillin) [id number] CLASS N/A N/A Yes SHELLFISH [id number] FOOD N/A N/A Yes codeine [id number] Drug Allergy Unknown N/A 09/22/2015 Yes morphine [id number] Drug Allergy Unknown N/A 09/22/2015 Yes Penicillins [id number] Drug Allergy Unknown N/A 09/22/2015 Yes propoxyphene [id number] Drug Allergy Unknown N/A 09/22/2015 Medications There is no data. Problems Date Dx Coded Attending Type Code Diagnosis Diagnosed By 09/22/2015 Ot 276.2 09/22/2015 Ot 799.1 09/22/2015 Ot 977.9 09/22/2015 Ot E858.9 09/22/2015 SHERMAN LIMA DO Ot L72.3 09/22/2015 SHERMAN LIMA DO Ot Z01.818 09/22/2015 SHERMAN LIMA DO Ot E11.9 TYPE 2 DIABETES MELLITUS WITHOUT COMPLIC 09/22/2015 SHERMAN LIMA DO Ot L72.3 SEBACEOUS CYST 11/22/2017 SHERMAN LIMA DO Ot L72.3 SEBACEOUS CYST 11/22/2017 SHERMAN LIMA DO Ot Z01.818 ENCOUNTER FOR OTHER PREPROCEDURAL EXAMIN 11/22/2017 GRIS MAHAJAN Ot F32.9 MAJOR DEPRESSIVE DISORDER, SINGLE EPISOD 11/22/2017 GRIS MAHAJAN Ot K21.9 GASTRO-ESOPHAGEAL REFLUX DISEASE WITHOUT 11/22/2017 GRIS MAHAJAN Ot N39.0 URINARY TRACT INFECTION, SITE NOT SPECIF 11/22/2017 GRIS MAHAJAN Ot R41.0 DISORIENTATION, UNSPECIFIED 11/22/2017 GRIS MAHAJAN Ot Z79.01 FDC (CURRENT) USE OF ANTICOAGULANT 11/22/2017 GRIS MAHAJAN Ot Z79.84 PARTS LISTER (CURRENT) USE OF ORAL HYPOGLYC 11/22/2017 GRIS MAHAJAN Ot Z86.73 PRSNL HX OF TIA (TIA), AND CEREB INFRC W 11/22/2017 GRIS MAHAJAN Ot Z88.0 ALLERGY STATUS TO PENICILLIN 11/22/2017 GRIS MAHAJAN Ot Z88.5 ALLERGY STATUS TO NARCOTIC AGENT STATUS 11/22/2017 GRIS MAHAJAN Ot Z88.6 ALLERGY STATUS TO ANALGESIC AGENT STATUS 11/22/2017 SHERMAN LIMA DO Ot L72.3 SEBACEOUS CYST 11/22/2017 SHERMAN LIMA DO Ot Z01.818 ENCOUNTER FOR OTHER PREPROCEDURAL EXAMIN 11/25/2017 GRIS MAHAJAN Ot F32.9 MAJOR DEPRESSIVE DISORDER, SINGLE EPISOD 11/25/2017 GRIS MAHAJAN Ot K21.9 GASTRO-ESOPHAGEAL REFLUX DISEASE WITHOUT 11/25/2017 GRIS MAHAJAN Ot N39.0 URINARY TRACT INFECTION, SITE NOT SPECIF 11/25/2017 GRIS MAHAJAN Ot R41.0 DISORIENTATION, UNSPECIFIED 11/25/2017 GRIS MAHAJAN Ot Z79.01 FDC (CURRENT) USE OF ANTICOAGULANT 11/25/2017 GRIS MAHAJAN Ot Z79.84 PARTS LISTER (CURRENT) USE OF ORAL HYPOGLYC 11/25/2017 GRIS MAHAJAN Ot Z86.73 PRSNL HX OF TIA (TIA), AND CEREB INFRC W 11/25/2017 GRIS MAHAJAN Ot Z88.0 ALLERGY STATUS TO PENICILLIN 11/25/2017 GRIS MAHAJAN Ot Z88.5 ALLERGY STATUS TO NARCOTIC AGENT STATUS 11/25/2017 GRIS MAHAJAN Ot Z88.6 ALLERGY STATUS TO ANALGESIC AGENT STATUS 11/26/2017 GRIS MAHAJAN Ot F32.9 MAJOR DEPRESSIVE DISORDER, SINGLE EPISOD 11/26/2017 GRIS MAHAJAN Ot K21.9 GASTRO-ESOPHAGEAL REFLUX DISEASE WITHOUT 11/26/2017 GRIS MAHAJAN Ot N39.0 URINARY TRACT INFECTION, SITE NOT SPECIF 11/26/2017 GRIS MAHAJAN Ot R41.0 DISORIENTATION, UNSPECIFIED 11/26/2017 GRIS MAHAJAN Ot Z79.01 PARTS LISTER (CURRENT) USE OF ANTICOAGULANT 11/26/2017 GRIS MAHAJAN Ot Z79.84 FDC (CURRENT) USE OF ORAL HYPOGLYC 11/26/2017 GRIS MAHAJAN Ot Z86.73 PRSNL HX OF TIA (TIA), AND CEREB INFRC W 11/26/2017 GRIS MAHAJAN Ot Z88.0 ALLERGY STATUS TO PENICILLIN 11/26/2017 GRIS MAHAJAN Ot Z88.5 ALLERGY STATUS TO NARCOTIC AGENT STATUS 11/26/2017 GRIS MAHAJAN Ot Z88.6 ALLERGY STATUS TO ANALGESIC AGENT STATUS 11/27/2017 SHERMAN LIMA DO Ot L72.3 SEBACEOUS CYST 11/27/2017 SHERMAN LIMA DO Ot Z01.818 ENCOUNTER FOR OTHER PREPROCEDURAL EXAMIN 11/28/2017 GRIS MAHAJAN Ot F32.9 MAJOR DEPRESSIVE DISORDER, SINGLE EPISOD 11/28/2017 GRIS MAHAJAN Ot K21.9 GASTRO-ESOPHAGEAL REFLUX DISEASE WITHOUT 11/28/2017 GRIS MAHAJAN Ot N39.0 URINARY TRACT INFECTION, SITE NOT SPECIF 11/28/2017 GRIS MAHAJAN Ot R41.0 DISORIENTATION, UNSPECIFIED 11/28/2017 GRIS MAHAJAN Ot Z79.01 FDC (CURRENT) USE OF ANTICOAGULANT 11/28/2017 GRIS MAHAJAN Ot Z79.84 FDC (CURRENT) USE OF ORAL HYPOGLYC 11/28/2017 GRIS MAHAJAN Ot Z86.73 PRSNL HX OF TIA (TIA), AND CEREB INFRC W 11/28/2017 GRIS MAHAJAN Ot Z88.0 ALLERGY STATUS TO PENICILLIN 11/28/2017 GRIS MAHAJAN Ot Z88.5 ALLERGY STATUS TO NARCOTIC AGENT STATUS 11/28/2017 GRIS MAHAJAN Ot Z88.6 ALLERGY STATUS TO ANALGESIC AGENT STATUS Procedures There is no data. Results Test Result Range Complete urinalysis with reflex to culture - 11/22/17 16:55 Urine color determination YELLOW NRG Urine clarity determination CLEAR NRG Urine pH measurement by test strip 5 5-9 Specific gravity of urine by test strip 1.005 1.016- 1.022 Urine protein assay by test strip, semi-quantitative NEGATIVE NEGATIVE Urine glucose detection by automated test strip NEGATIVE NEGATIVE Erythrocytes detection in urine sediment by light microscopy 2+ NEGATIVE Urine ketones detection by automated test strip NEGATIVE NEGATIVE Urine nitrite detection by test strip POSITIVE NEGATIVE Urine total bilirubin detection by test strip NEGATIVE NEGATIVE Urine urobilinogen measurement by automated test strip (mass/volume) NORMAL NORMAL Urine leukocyte esterase detection by dipstick NEGATIVE NEGATIVE Automated urine sediment erythrocyte count by microscopy (number/high power field) NONE NRG Automated urine sediment leukocyte count by microscopy (number/high power field ) RARE NRG Bacteria detection in urine sediment by light microscopy FEW NRG Squamous epithelial cells detection in urine sediment by light microscopy 2-5 NRG Crystals detection in urine sediment by light microscopy NONE NRG Casts detection in urine sediment by light microscopy NONE NRG Mucus detection in urine sediment by light microscopy NEGATIVE NRG Complete urinalysis with reflex to culture YES NRG Bacterial urine culture - 11/22/17 16:55 Bacterial urine culture [id number] NRG COLONY COUNT >100,000/ML NR FTX;REPORTABLE SENSITIVITY REPORTED 11/24/17 9:50 NRG FREE TEXT ENTRY 2 PLUS, NRG FREE TEXT ENTRY 3 LACTOBACILLUS >100,000/ML NR Bacterial susceptibility panel - 11/22/17 16:55 Gentamicin susceptibility test by minimum inhibitory concentration < = NRG Trimethoprim/sulfamethoxazole susceptibility test by minimum inhibitoryconcentration R NRG Ampicillin susceptibility test by minimum inhibitory concentration > = NRG Tobramycin susceptibility test by minimum inhibitory concentration < = NRG Cefazolin susceptibility test by minimum inhibitory concentration 32 NRG Ceftriaxone susceptibility test by minimum inhibitory concentration <= NRG Ampicillin/sulbactam susceptibility test by minimum inhibitory concentration R NRG Piperacillin/tazobactam susceptibility test by minimum inhibitory concentration I NRG Ciprofloxacin susceptibility test by minimum inhibitory concentration >= NRG Meropenem susceptibility test by minimum inhibitory concentration < = NRG Nitrofurantoin susceptibility test by minimum inhibitory concentration <= NRG Aztreonam susceptibility test by minimum inhibitory concentration < = NRG Extended spectrum beta lactamase (ESBL) producing bacteria susceptibility test by minimum inhibitory concentration - NR C difficile Toxin Gene TONJA - 12/05/17 08:35 C difficile Toxin Gene TONJA Negative Negative Encounters ACCT No. Visit Date/Time Discharge Status Pt. Type Provider Facility Loc./Unit Complaint [id number] 02/10/2014 11:59:31 02/10/2014 23:59:59 CLS Outpatient Jordin Trinidad [id number] 12/01/2013 14:37:21 12/01/2013 23:59:59 CLS Outpatient Trena Fisher [id number] 12/05/2017 08:34:51 Document Registration [id number] 11/28/2017 16:15:38 Document Registration [id number] 11/07/2017 07:49:23 Document Registration [id number] 09/05/2017 07:44:28 Document Registration [id number] 09/04/2017 15:11:16 Document Registration [id number] 08/29/2017 07:42:51 Document Registration [id number] 08/22/2017 07:18:32 Document Registration [id number] 08/14/2017 07:36:51 Document Registration [id number] 08/09/2017 16:37:52 Document Registration [id number] 08/08/2017 07:38:42 Document Registration [id number] 07/23/2017 15:20:25 Document Registration [id number] 06/06/2017 07:46:18 Document Registration [id number] 05/15/2017 01:00:22 Document Registration [id number] 05/09/2017 07:55:42 Document Registration [id number] 12/06/2017 18:08:00 Document Registration [id number] 11/22/2017 13:08:00 11/22/2017 18:50:00 DIS Outpatient GRIS MAHAJAN Via [facility] ER INCREASED CONFUSION/ DECREASED APPETITE HEADACHE [id number] 09/22/2015 06:14:00 09/22/2015 11:25:00 DIS Outpatient SHERMAN LIMA DO Via [facility] STAN.CYST [id number] 09/20/2015 13:46:00 09/20/2015 23:59:59 CLS Outpatient SHERMAN LIMA DO Via [facility] PREOP STAN.CYST [id number] 02/07/2011 12:00:00 Document Registration [id number] 05/14/2017 14:57:13 05/14/2017 23:59:59 [facility] Outpatient
[2017-12-11 10:35] LABS: BASOPHILS % (AUTO) 0 % (0-10); EOSINOPHILS # (AUTO) 0.2 10^3/uL (0.0-0.3); EOSINOPHILS % (AUTO) 2 % (0-10); HEMATOCRIT 41 % (35-52); HEMOGLOBIN 13.7 G/DL (11.5-16.0); LYMPHOCYTES # (AUTO) 1.1 X 10^3 (1.0-4.0); LYMPHOCYTES % (AUTO) 9 % (12-44); MEAN CORPUSCULAR HEMOGLOBIN 30 PG (25-34); MEAN CORPUSCULAR HGB CONC 34 G/DL (32-36); MEAN CORPUSCULAR VOLUME 90 FL (80-99); MEAN PLATELET VOLUME 11.1 FL (7.4-10.4); MONOCYTES # (AUTO) 1.1 X 10^3 (0.0-1.0); MONOCYTES % (AUTO) 10 % (0-12); NEUTROPHILS # (AUTO) 9.3 X 10^3 (1.8-7.8); NEUTROPHILS % (AUTO) 80 % (42-75); PLATELET COUNT 407 10^3/uL (130-400); RED BLOOD COUNT 4.53 10^6/uL (4.35-5.85); RED CELL DISTRIBUTION WIDTH 16.3 % (10.0-14.5); WHITE BLOOD COUNT 11.7 10^3/uL (4.3-11.0)
--- NOTE | 2017-12-11 10:46 | ED General ---
General Chief Complaint: Unresponsive Stated Complaint: LETHARGIC//UNRESPONSIVE Source of Information: Patient Exam Limitations: No Limitations History of Present Illness Date Seen by Provider: Dec 11, 2017 Time Seen by Provider: 10:44 Initial Comments To ER with lethargy and unresponsiveness since Saturday. Just prior to this she received Compazine for nausea and vomiting. She had a doctor's appointment for this recurrent nausea and vomiting recently and was believed according to daughter that she would need her esophagus dilated as she's had that done in the past. She is DNR status. Resides at [facility] in [facility]. Timing/Duration: 2-3 Days Severity: Moderate Associated Systoms: Nausea/Vomiting Allergies and Home Medications Allergies Coded Allergies: Penicillins (Unverified Allergy, Unknown, 09/22/15) codeine (Unverified Allergy, Unknown, 09/22/15) morphine (Unverified Allergy, Unknown, 09/22/15) propoxyphene (Unverified Allergy, Unknown, 09/22/15) Home Medications Acetaminophen 325 Mg Tablet, 650 MG PO Q4H PRN for PAIN, (Reported) Atorvastatin Calcium 10 Mg Tablet, 10 MG PO DAILY, (Reported) Bupropion HCl 100 Mg Tablet, 100 MG PO BID, (Reported) Bupropion HCl 100 Mg Tablet, 50 MG PO TID, (Reported) Buspirone HCl 5 Mg Tablet, 5 MG PO BID, (Reported) Cetirizine HCl 10 Mg Tablet, 10 MG PO DAILY, (Reported) Clonidine HCl 0.1 Mg Tablet, 0.1 MG PO PRN PRN for SYSTOLIC BLOOD PRESSURE, ( Reported) Diltiazem HCl 180 Mg Cap.er.24h, 180 MG PO DAILY, (Reported) Docusate Sodium 100 Mg Capsule, 100 MG PO BID PRN for CONSTIPATION, (Reported) Duloxetine HCl 20 Mg Cap, 20 MG PO DAILY, (Reported) Duloxetine HCl 60 Mg Capsule.dr, 60 MG PO DAILY, (Reported) Gabapentin 300 Mg Capsule, 300 MG PO QID, (Reported) Hydrocortisone Acetate 25 Mg Supp.rect, 25 MG RC Q12H PRN for HEMORRHOIDS, ( Reported) Ketotifen Fumarate 5 Ml Drops, 2 DROPS OP QID PRN for DRY EYES, (Reported) Lactobacillus Combo No.11 1 Each Cap.sprink, 1 EACH PO BID, (Reported) Levetiracetam 1,000 Mg Tablet, 1,000 MG PO BID, (Reported) Magnesium Hydroxide 2,400 Mg/10 Ml Oral.susp, 2,400 MG PO DAILY PRN for CONSTIPATION, (Reported) Melatonin/Pyridoxine 1 Each Tablet, 1 EACH PO HS, (Reported) Metformin HCl 1,000 Mg Tablet, 1,000 MG PO BID, (Reported) Metoprolol Succinate 25 Mg Tab.er.24h, 25 MG PO DAILY, (Reported) Multivitamin 1 Each Tablet, 1 EACH PO DAILY, (Reported) Nitrofurantoin Monohyd/M-Cryst 100 Mg Capsule, 1 TAB PO BID Prescribed by: GRIS JEFFERSON on 11/22/171832 Omeprazole 20 Mg Tablet.dr, 20 MG PO DAILY, (Reported) Ondansetron HCl 4 Mg Tab, 4 MG PO Q8H PRN for NAUSEA/VOMITING, (Reported) Phenazopyridine HCl 100 Mg Tablet, 100 MG PO Q8H PRN for pain Prescribed by: GRIS JEFFERSON on 11/22/171832 Pioglitazone HCl 30 Mg Tablet, 30 MG PO DAILY, (Reported) Warfarin Sodium 3 Mg Tablet, 3 MG PO DAILY, (Reported) Patient Home Medication List Home Medication List Reviewed: Yes Constitutional: see HPI EENTM: see HPI Respiratory: no symptoms reported Cardiovascular: no symptoms reported Genitourinary: no symptoms reported Musculoskeletal: no symptoms reported Skin: no symptoms reported Psychiatric/Neurological: See HPI Hematologic/Lymphatic: No Symptoms Reported Immunological/Allergic: no symptoms reported Past Fbquafm-Qgxjuk-Kkrlxa Hx Patient Social History Alcohol Use: Denies Use Recreational Drug Use: No Smoking Status: Unknown if Ever Smoked Immunizations Up To Date Date of Pneumonia Vaccine: Jul 26, 2014 Date of Influenza Vaccine: Jul 25, 2015 Surgeries History of Surgeries: No (HEMORRHOID SURGERY, BACK SURGERY X3, L TKR, CATARACTS ) Respiratory History of Respiratory Disorde: No Cardiovascular History of Cardiac Disorders: Yes Neurological History of Neurological Disord: Yes Reproductive System Hx Reproductive Disorders: No Sexually Transmitted Disease: No HIV/AIDS: No Female Reproductive Disorders: Denies Genitourinary Genitourinary Disorders: UTI-Chronic Gastrointestinal History of Gastrointestinal Di: Yes Gastrointestinal Disorders: Gastroesophageal Reflux, Pancreatitis Musculoskeletal History of Musculoskeletal Dis: Yes (W/C) Musculoskeletal Disorders: Contracture Endocrine History of Endocrine Disorders: Yes HEENT Loss of Vision: Bilateral Hearing Impairment: Denies Cancer History of Cancer: No Psychosocial History of Psychiatric Problem: Yes Behavioral Health Disorders: Depression Integumentary History of Skin or Integumenta: No Blood Transfusions History of Blood Disorders: No Adverse Reaction to a Blood Tr: No Physical Exam Vital Signs Vital Signs - First Documented 12/11/17 10:13 Temp 97.8 Pulse 117 Resp 18 B/P (MAP) 114/ O2 Delivery Room Air Capillary Refill : General Appearance: No Apparent Distress, WD/WN, Chronically ill, Other (frail , opens eyes to painful stimuli but does not respond verbally or with other movement) Eyes: Bilateral Eye Normal Inspection, Bilateral Eye PERRL, Bilateral Eye EOMI HEENT: PERRL/EOMI, TMs Normal, Other (thick whitish coating on her tongue) Neck: Full Range of Motion, Normal Inspection Respiratory: Lungs Clear, Normal Breath Sounds, No Accessory Muscle Use, No Respiratory Distress Cardiovascular: Regular Rate, Rhythm, Normal Peripheral Pulses Gastrointestinal: Normal Bowel Sounds, Non Tender, Soft Extremity: Normal Capillary Refill, Normal Inspection, Other (trace pitting edema bilateral lower extremities) Neurologic/Psychiatric: Alert, Oriented x3, No Motor/Sensory Deficits Skin: Normal Color, Warm/Dry Focused Exam Evaluation Lactate Level Laboratory Tests 12/11/17 11:56: Lactic Acid Level 2.82*H Lactic Acid Level Laboratory Tests Test 12/11/17 11:56 Lactic Acid Level 2.82 MMOL/L (0.50-2.00) *H Progress/Results/Core Measures Suspected Sepsis SIRS Temperature: Pulse: Respiratory Rate: Laboratory Tests 12/11/17 10:27: White Blood Count 11.7H Blood Pressure / Mean: Laboratory Tests 12/11/17 11:56: Lactic Acid Level 2.82*H Laboratory Tests 12/11/17 10:27: Creatinine 1.24, INR Comment 3.7H, Platelet Count 407H, Total Bilirubin 0.6 Results/Orders Lab Results Laboratory Tests Test 12/11/17 10:27 12/11/17 11:56 12/11/17 12:28 Range/Units White Blood Count 11.7 H 4.3-11.0 10^3/uL Red Blood Count 4.53 4.35-5.85 10^6/uL Hemoglobin 13.7 11.5-16.0 G/DL Hematocrit 41 35-52 % Mean Corpuscular Volume 90 80-99 FL Mean Corpuscular Hemoglobin 30 25-34 PG Mean Corpuscular Hemoglobin Concent 34 32-36 G/DL Red Cell Distribution Width 16.3 H 10.0-14.5 % Platelet Count 407 H 130-400 10^3/uL Mean Platelet Volume 11.1 H 7.4-10.4 FL Neutrophils (%) (Auto) 80 H 42-75 % Lymphocytes (%) (Auto) 9 L 12-44 % Monocytes (%) (Auto) 10 0-12 % Eosinophils (%) (Auto) 2 0-10 % Basophils (%) (Auto) 0 0-10 % Neutrophils # (Auto) 9.3 H 1.8-7.8 X 10^3 Lymphocytes # (Auto) 1.1 1.0-4.0 X 10^3 Monocytes # (Auto) 1.1 H 0.0-1.0 X 10^3 Eosinophils # (Auto) 0.2 0.0-0.3 10^3/uL Basophils # (Auto) 0.0 0.0-0.1 10^3/uL Prothrombin Time 36.3 H 12.2-14.7 SEC INR Comment 3.7 H 0.8-1.4 Activated Partial Thromboplast Time 85 H 24-35 SEC Sodium Level 139 135-145 MMOL/L Potassium Level 4.1 3.6-5.0 MMOL/L Chloride Level 100 98-107 MMOL/L Carbon Dioxide Level 26 21-32 MMOL/L Anion Gap 13 5-14 MMOL/L Blood Urea Nitrogen 32 H 7-18 MG/DL Creatinine 1.24 0.60-1.30 MG/DL Estimat Glomerular Filtration Rate 42 BUN/Creatinine Ratio 26 Glucose Level 202 H 70-105 MG/DL Calcium Level 9.8 8.5-10.1 MG/DL Total Bilirubin 0.6 0.1-1.0 MG/DL Aspartate Amino Transf (AST/SGOT) 40 H 5-34 U/L Alanine Aminotransferase (ALT/SGPT) 17 0-55 U/L Alkaline Phosphatase 114 40-136 U/L Total Protein 6.1 L 6.4-8.2 GM/DL Albumin 2.6 L 3.2-4.5 GM/DL Lipase 27 8-78 U/L Lactic Acid Level 2.82 *H 0.50-2.00 MMOL/L Urine Color YELLOW Urine Clarity VERY CLOUDY H Urine pH 5 5-9 Urine Specific [place] 1.025 H 1.016-1.022 Urine Protein 3+ H NEGATIVE Urine Glucose (UA) 2+ H NEGATIVE Urine Ketones NEGATIVE NEGATIVE Urine Nitrite NEGATIVE NEGATIVE Urine Bilirubin 2+ H NEGATIVE Urine Urobilinogen NORMAL NORMAL MG/DL Urine Leukocyte Esterase 3+ H NEGATIVE Urine RBC (Auto) 5+ H NEGATIVE Urine RBC >100 H /HPF Urine WBC 10-25 H /HPF Urine Squamous Epithelial Cells 2-5 /HPF Urine Crystals PRESENT H /LPF Urine Amorphous Sediment FEW DARYN URATES H /LPF Urine Bacteria LARGE H /HPF Urine Casts NONE /LPF Urine Mucus NEGATIVE /LPF Urine Culture Indicated YES My Orders Orders - FARTUN BARRERA APRN Ct Head Wo (12/11/17 10:43) Ct Abdomen/Pelvis Wo (12/11/17 11:24) Lipase (12/11/17 12:18) Paredes Cath Insertion (12/11/17 12:34) Abdomen/Kub 1view (12/11/17 12:34) Ceftriaxone Injection (Rocephin Injectio (12/11/17 12:45) Pelvis With Left Hip 2-3 Views (12/11/17 12:51) Medications Given in ED Current Medications Medications Dose Ordered Sig/Sushant Route Start Time Stop Time Status Last Admin Dose Admin Ceftriaxone Sodium 1000 mg/ Sodium Chloride 100 ml @ 200 mls/hr ONCE ONCE IV 12/11/17 12:45 12/11/17 13:14 DC 12/11/17 13:27 200 MLS/HR Vital Signs/I&O Vital Sign - Last 12Hours 12/11/17 10:13 Temp 97.8 Pulse 117 Resp 18 B/P (MAP) 114/ O2 Delivery Room Air Capillary Refill : Diagnostic Imaging Diagonstic Imaging: CT Comments NAME: NOLAN RICK MED REC#: [id number] PT STATUS: REG ER : 1940 PHYSICIAN: FARTUN BARRERA APRN ADMIT DATE: 12/11/17/ER Draft Date of Exam:12/11/17 CT HEAD WO CLINICAL INDICATION: Patient is unresponsive. EXAM: Axial CT scan of the brain performed without IV contrast. COMPARISON: Head CT without IV contrast dated 11/22/2017. FINDINGS: Stable CT scan of the brain with large amounts of encephalomalacia involving most of the right cerebral hemisphere with some sparing of the right frontal lobe, right basal ganglia, and anterior tip of the right lateral temporal lobe medially. Stable dystrophic calcification posteriorly within the area of encephalomalacia. There is a stable small area of confluent high T2 signal in the left parietal lobe centrum semiovale and periventricular region. There are also other areas of focal and patchy low-attenuation changes involving the left cerebral hemisphere. There is no interval CT evidence of intracranial hemorrhage, hydrocephalus, or cerebral infarct. There is no brain herniation. Basal cisterns are unremarkable. The extracranial soft tissue, skull, and orbits are unremarkable. Paranasal sinuses and temporal bone structures are unremarkable. IMPRESSION: 1: Overall, stable CT scan of the brain with no gross CT evidence of interval acute intracranial process. 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 3: Again seen chronic small vessel ischemic disease involving the left cerebral hemisphere. Dictated on workstation # [id number] Dict: 12/11/17 1213 Trans: 12/11/17 1245 [id number] Interpreted by: KOSTA VALDERRAMA MD Electronically signed by: NAME: NOLAN RICK Mangstor REC#: [id number] PT STATUS: REG ER : 1940 PHYSICIAN: AMANDA DORSEY MD ADMIT DATE: 12/11/17/ER Draft Date of Exam:12/11/17 CHEST 1 VIEW, AP/PA ONLY INDICATION: Lethargy. TIME OF EXAMINATION: 11:35 a.m. COMPARISON: No prior studies are available for comparison. FINDINGS: The heart size is normal. Right hemidiaphragm is mildly elevated. The lungs are clear. No infiltrate or failure is detected. No effusion or pneumothorax is seen. IMPRESSION: No acute cardiopulmonary process is detected. Dictated on workstation # [id number] Dict: 12/11/17 1144 Trans: 12/11/17 1147 [facility] [id number] Interpreted by: LOGAN CRONIN MD Electronically signed by: NAME: NOLAN RICK Mangstor REC#: [id number] PT STATUS: REG ER : 1940 PHYSICIAN: FARTUN BARRERA APRN ADMIT DATE: 12/11/17/ER Draft Date of Exam:12/11/17 CT ABDOMEN/PELVIS WO PROCEDURE: CT abdomen and pelvis without contrast. TECHNIQUE: Multiple contiguous axial images were obtained through the abdomen and pelvis without the use of intravenous contrast. INDICATION: Unresponsive, lethargic. CORRELATION STUDY: None. FINDINGS: Minimal dependent basilar atelectasis. Heart size appearing normal with presence of coronary artery calcification. EG junction is unremarkable. Diffuse hepatic steatosis is present. Gallbladder is absent with clips in the fossa. Spleen and adrenal glands are unremarkable. There is diffuse edema and haziness about the pancreas, consistent with acute pancreatitis. Abdominal aorta is normal in contour with minimal wall calcification. There are multiple left-sided renal stones present. An additional 5 mm stone is present in the proximal left ureter which results in very minimal obstruction. Remainder of the left ureter is unremarkable. The right kidney and collecting system are unremarkable. Symmetric perinephric stranding. Gastrointestinal tract without evidence for obstruction or inflammation. Colonic diverticulosis is noted. This is most pronounced in the descending and sigmoid colon. The rectum has a somewhat elongated and posterior positioning. Possibility of slight fistula formation would be difficult to exclude. No abdominal ascites or free air. Urinary bladder is unremarkable. Uterus is absent. Osseous structures demonstrate what appears to be likely nonacute chronic left femoral neck fracture. Diffuse bony demineralization. Posterior fusion at L4, L5, and S1 levels. IMPRESSION: 1. Findings are consistent with likely acute pancreatitis. Correlation with laboratory evaluation. 2. Left-sided renal stones. Additional stone in the proximal left ureter without significant obstructive uropathy at this time. 3. The rectum appears to be somewhat posterior in position, possibility of underlying fistula formation would be difficult to exclude. 4. Likely chronic left femoral neck fracture. Dictated on workstation # [id number] Dict: 12/11/17 1301 Trans: 12/11/17 1324 [id number] Interpreted by: BASILIA SAHA DO Electronically signed by: Departure Communication (Admissions) Time/Spoke to Admitting Phy: 13:[address] De Los Santos. WIll admit, fluids rocephin and consult Dr Osorio for left ureteral stone Time/Spoke to Consulting Phy: 13:51 Communication/Consulting discussed with Dr Osorio. Will use rocephin and hold warfarin. Progress Notes I discussed with the patient's daughters who read the bedside her inflammatory changes around the pancreas. However the pancreas enzymes are normal. They state that she has had severe pancreatitis in the remote past. Impression Impression: Primary Impression: Urinary tract infection Additional Impressions: Left ureteral stone Sepsis Acute renal insufficiency Altered mental status chronic left hip fracture Disposition: ADMITTED INPATIENT Condition: Stable Admissions Decision to Admit Reason: Admit from ER (General) Decision to Admit/Date: Dec 11, 2017 Time/Decision to Admit Time: 13:56 Departure-Patient Inst. Referrals: RAJAT DE LOS SANTOS MD (PCP/Family) Primary Care Physician Copy Copies To 1: EUSEBIA OSORIO MD, PETER J APRN Dec 11, 2017 10:46
[2017-12-11 10:55] LABS: INR 3.7 (0.8-1.4); PROTHROMBIN TIME PATIENT 36.3 SEC (12.2-14.7)
[2017-12-11 11:02] LABS: ALBUMIN 2.6 GM/DL (3.2-4.5); BILIRUBIN,TOTAL 0.6 MG/DL (0.1-1.0); CALCIUM 9.8 MG/DL (8.5-10.1); CREATININE SERUM 1.24 MG/DL (0.60-1.30); POTASSIUM 4.1 MMOL/L (3.6-5.0); TOTAL PROTEIN 6.1 GM/DL (6.4-8.2)
--- NOTE | 2017-12-11 11:48 | Diagnostic Imaging Report ---
INDICATION: Lethargy. TIME OF EXAMINATION: 11:35 a.m. COMPARISON: No prior studies are available for comparison. FINDINGS: The heart size is normal. Right hemidiaphragm is mildly elevated. The lungs are clear. No infiltrate or failure is detected. No effusion or pneumothorax is seen. IMPRESSION: No acute cardiopulmonary process is detected. Dictated by: Dictated on workstation # [id number]
[2017-12-11 12:36] LABS: CLARITY,URINE VERY CLOUDY; COLOR,URINE YELLOW; GLUCOSE, URINE (UA) 2+ (NEGATIVE); KETONES,URINE NEGATIVE (NEGATIVE); LEUKOCYTE ESTERASE ,URINE 3+ (NEGATIVE); NITRITE,URINE NEGATIVE (NEGATIVE); PH,URINE 5 (5-9); PROTEIN,URINE 3+ (NEGATIVE); UROBILINOGEN,URINE NORMAL (NORMAL)
[2017-12-11] MEDS ORDERED: cefTRIAXone INJECTION 1,000 MG in NS (IVPB) 100 ML IV ONE (12:45)
--- NOTE | 2017-12-11 12:46 | Diagnostic Imaging Report ---
CLINICAL INDICATION: Patient is unresponsive. EXAM: Axial CT scan of the brain performed without IV contrast. COMPARISON: Head CT without IV contrast dated 11/22/2017. FINDINGS: Stable CT scan of the brain with large amounts of encephalomalacia involving most of the right cerebral hemisphere with some sparing of the right frontal lobe, right basal ganglia, and anterior tip of the right lateral temporal lobe medially. Stable dystrophic calcification posteriorly within the area of encephalomalacia. There is a stable small area of confluent high T2 signal in the left parietal lobe centrum semiovale and periventricular region. There are also other areas of focal and patchy low-attenuation changes involving the left cerebral hemisphere. There is no interval CT evidence of intracranial hemorrhage, hydrocephalus, or cerebral infarct. There is no brain herniation. Basal cisterns are unremarkable. The extracranial soft tissue, skull, and orbits are unremarkable. Paranasal sinuses and temporal bone structures are unremarkable. IMPRESSION: 1: Overall, stable CT scan of the brain with no gross CT evidence of interval acute intracranial process. 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 3: Again seen chronic small vessel ischemic disease involving the left cerebral hemisphere. Dictated by: Dictated on workstation # [id number]
[2017-12-11 13:09] LABS: BILIRUBIN,URINE 2+ (NEGATIVE); RBC,URINE >100 /HPF
[2017-12-11 13:10] LABS: AMORPHOUS SEDIMENT,UR FEW AMOR URATES /LPF; BACTERIA,URINE LARGE /HPF
--- NOTE | 2017-12-11 13:24 | Diagnostic Imaging Report ---
PROCEDURE: CT abdomen and pelvis without contrast. TECHNIQUE: Multiple contiguous axial images were obtained through the abdomen and pelvis without the use of intravenous contrast. INDICATION: Unresponsive, lethargic. CORRELATION STUDY: None. FINDINGS: Minimal dependent basilar atelectasis. Heart size appearing normal with presence of coronary artery calcification. EG junction is unremarkable. Diffuse hepatic steatosis is present. Gallbladder is absent with clips in the fossa. Spleen and adrenal glands are unremarkable. There is diffuse edema and haziness about the pancreas, consistent with acute pancreatitis. Abdominal aorta is normal in contour with minimal wall calcification. There are multiple left-sided renal stones present. An additional 5 mm stone is present in the proximal left ureter which results in very minimal obstruction. Remainder of the left ureter is unremarkable. The right kidney and collecting system are unremarkable. Symmetric perinephric stranding. Gastrointestinal tract without evidence for obstruction or inflammation. Colonic diverticulosis is noted. This is most pronounced in the descending and sigmoid colon. The rectum has a somewhat elongated and posterior positioning. Possibility of slight fistula formation would be difficult to exclude. No abdominal ascites or free air. Urinary bladder is unremarkable. Uterus is absent. Osseous structures demonstrate what appears to be likely nonacute chronic left femoral neck fracture. Diffuse bony demineralization. Posterior fusion at L4, L5, and S1 levels. IMPRESSION: 1. Findings are consistent with likely acute pancreatitis. Correlation with laboratory evaluation. 2. Left-sided renal stones. Additional stone in the proximal left ureter without significant obstructive uropathy at this time. 3. The rectum appears to be somewhat posterior in position, possibility of underlying fistula formation would be difficult to exclude. 4. Likely chronic left femoral neck fracture. Dictated by: Dictated on workstation # [id number]
--- NOTE | 2017-12-11 13:38 | Diagnostic Imaging Report ---
INDICATION: Unresponsive, lethargic. TECHNIQUE: 2 supine view of the abdomen 1:11 PM CORRELATION STUDY: None FINDINGS: Bowel gas pattern appearing unremarkable without finding suggestive of obstruction. Gas at the level of rectum is noted. Posterior lumbosacral fusion hardware is present at L4-S1. Chronic fracture at the left femoral neck is present. Prior surgical change of the midline abdominal wall hernia repair. Beverly screws over the pubic symphysis. Calcification of the left renal silhouette suggestive of a likely nephrolithiasis. IMPRESSION: 1. Nonobstructive appearing bowel gas pattern. Dictated by: Dictated on workstation # [id number]
--- NOTE | 2017-12-11 14:01 | Diagnostic Imaging Report ---
INDICATION: Hip fracture, unresponsive TECHNIQUE: AP pelvis along with AP and crosstable views left hip 1:18 PM CORRELATION STUDY: None FINDINGS: Posterior fusion hardware at the lumbosacral junction is present. The pelvis demonstrates pectineal line of the obturator rings to be maintained. Right hip joint with mildly advanced degenerative changes. Diffuse bony demineralization. Imaging left hip demonstrates a left femoral neck fracture. This appears to be likely chronic with resorption of the margins with small volume in femoral head. Superior subluxation femoral shaft. Soft tissue density in and around the fracture margins. Question of some erosive change in and around the acetabulum as well. IMPRESSION: Findings compatible with likely chronic left femoral neck fracture and subluxation. No findings to suggest acute bony abnormality. Dictated by: Dictated on workstation # [id number]
--- OUTSIDE RECORDS SUMMARY | 2017-12-11 14:11 | XMS REPORT | Continuity of Care Document ---
Author Author [facility] Organization [facility] Address Unknown Phone Unavailable Allergies Active Description Code Type Severity Reaction Onset Reported/Identified Relationship to Patient Clinical Status Yes CODEINE [id number] DRUG N/A N/A Yes MORPHINE [id number] DRUG N/A MAKES PAIN WORSE. 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 11/22/2017 GRIS [...] DISORIENTATION, UNSPECIFIED 11/25/2017 GRIS MAHAJAN Ot Z79.01 RESIDENTIAL (CURRENT) USE OF ANTICOAGULANT 11/25/2017 GRIS MAHAJAN Ot 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 11/25/2017 GRIS [...] DISORIENTATION, UNSPECIFIED 11/26/2017 GRIS MAHAJAN Ot 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 11/26/2017 GRIS MAHAJAN Ot Z79.84 RESIDENTIAL (CURRENT) USE OF ORAL HYPOGLYC 11/26/2017 GRIS MAHAJAN Ot Z86.73 PRSNL HX OF TIA (TIA), AND CEREB INFRC W 11/26/2017 GRIS MAHAJAN Ot Z88.0 ALLERGY STATUS TO PENICILLIN 11/26/2017 GRIS MAHAJAN Ot Z88.5 ALLERGY STATUS TO NARCOTIC AGENT STATUS 11/26/2017 GRIS MAHAJAN Ot Z88.6 ALLERGY STATUS TO ANALGESIC AGENT STATUS 11/27/2017 SHERMAN LIMA DO Ot L72.3 SEBACEOUS CYST 11/27/2017 SEHRMAN LIMA DO Ot Z01.818 ENCOUNTER FOR OTHER PREPROCEDURAL EXAMIN 11/28/2017 GRIS MAHAJAN Ot F32.9 MAJOR DEPRESSIVE DISORDER, SINGLE EPISOD 11/28/2017 GRIS MAHAJAN Ot K21.9 GASTRO-ESOPHAGEAL REFLUX DISEASE WITHOUT 11/28/2017 GRIS MAHAJAN Ot N39.0 URINARY TRACT INFECTION, SITE NOT SPECIF 11/28/2017 GRIS MAHAJAN Ot R41.0 DISORIENTATION, UNSPECIFIED 11/28/2017 GRIS MAHAJAN Ot Z79.01 RESIDENTIAL (CURRENT) USE OF ANTICOAGULANT 11/28/2017 GRIS MAHAJAN Ot Z79.84 RESIDENTIAL (CURRENT) USE OF ORAL HYPOGLYC 11/28/2017 GRIS [...] culture - 11/22/17 16:55 Bacterial urine culture [id number] NRG COLONY COUNT >100,000/ML NR FTX;REPORTABLE SENSITIVITY [...] C difficile Toxin Gene TONJA Negative Negative Complete blood count (CBC) with automated white blood cell (WBC) differential - 12/11/17 10:27 Blood leukocytes automated count (number/volume) 11.7 10*3/uL 4.3-11.0 Blood erythrocytes automated count (number/volume) 4.53 10*6/uL 4.35-5.85 Venous blood hemoglobin measurement (mass/volume) 13.7 g/dL 11.5-16.0 Blood hematocrit (volume fraction) 41 % 35-52 Automated erythrocyte mean corpuscular volume 90 [foz_us] 80-99 Automated erythrocyte mean corpuscular hemoglobin (mass per erythrocyte) 30 pg 25-34 Automated erythrocyte mean corpuscular hemoglobin concentration measurement ( mass/volume) 34 g/dL 32-36 Automated erythrocyte distribution width ratio 16.3 % 10.0-14.5 Automated blood platelet count (count/volume) 407 10*3/uL 130-400 Automated blood platelet mean volume measurement 11.1 [foz_us] 7.4-10.4 Automated blood neutrophils/100 leukocytes 80 % 42-75 Automated blood lymphocytes/100 leukocytes 9 % 12-44 Blood monocytes/100 leukocytes 10 % 0-12 Automated blood eosinophils/100 leukocytes 2 % 0-10 Automated blood basophils/100 leukocytes 0 % 0-10 Blood neutrophils automated count (number/volume) 9.3 10*3 1.8-7.8 Blood lymphocytes automated count (number/volume) 1.1 10*3 1.0-4.0 Blood monocytes automated count (number/volume) 1.1 10*3 0.0-1.0 Automated eosinophil count 0.2 10*3/uL 0.0-0.3 Automated blood basophil count (count/volume) 0.0 10*3/uL 0.0-0.1 Comprehensive metabolic panel - 12/11/17 10:27 Serum or plasma sodium measurement (moles/volume) 139 mmol/L 135-145 Serum or plasma potassium measurement (moles/volume) 4.1 mmol/L 3.6-5.0 Serum or plasma chloride measurement (moles/volume) 100 mmol/L 98-107 Carbon dioxide 26 mmol/L 21-32 Serum or plasma anion gap determination (moles/volume) 13 mmol/L 5-14 Serum or plasma urea nitrogen measurement (mass/volume) 32 mg/dL 7-18 Serum or plasma creatinine measurement (mass/volume) 1.24 mg/dL 0.60-1.30 Serum or plasma urea nitrogen/creatinine mass ratio 26 NRG Serum or plasma creatinine measurement with calculation of estimated glomerular filtration rate 42 NRG Serum or plasma glucose measurement (mass/volume) 202 mg/dL 70-105 Serum or plasma calcium measurement (mass/volume) 9.8 mg/dL 8.5-10.1 Serum or plasma total bilirubin measurement (mass/volume) 0.6 mg/dL 0.1-1.0 Serum or plasma alkaline phosphatase measurement (enzymatic activity/volume) 114 U/L 40-136 Serum or plasma aspartate aminotransferase measurement (enzymatic activity/ volume) 40 U/L 5-34 Serum or plasma alanine aminotransferase measurement (enzymatic activity/volume ) 17 U/L 0-55 Serum or plasma protein measurement (mass/volume) 6.1 g/dL 6.4-8.2 Serum or plasma albumin measurement (mass/volume) 2.6 g/dL 3.2-4.5 PT panel in platelet poor plasma by coagulation assay - 12/11/17 10:27 Prothrombin time (PT) in platelet poor plasma by coagulation assay 36.3 s 12.2-14.7 INR in platelet poor plasma or blood by coagulation assay 3.7 0.8-1.4 Activated partial thromboplastin time (aPTT) in platelet poor plasma bycoagulation assay - 12/11/17 10:27 Activated partial thromboplastin time (aPTT) in platelet poor plasma bycoagulation assay 85 s 24-35 Lipase - 12/11/17 10:27 Lipase 27 U/L 8-78 Blood lactic acid measurement (moles/volume) - 12/11/17 11:56 Blood lactic acid measurement (moles/volume) 2.82 mmol/L 0.50-2.00 Complete urinalysis with reflex to culture - 12/11/17 12:28 Urine color determination YELLOW NRG Urine clarity determination VERY CLOUDY NRG Urine pH measurement by test strip 5 5-9 Specific gravity of urine by test strip 1.025 1.016- 1.022 Urine protein assay by test strip, semi-quantitative 3+ NEGATIVE Urine glucose detection by automated test strip 2+ NEGATIVE Erythrocytes detection in urine sediment by light microscopy 5+ NEGATIVE Urine ketones detection by automated test strip NEGATIVE NEGATIVE Urine nitrite detection by test strip NEGATIVE NEGATIVE Urine total bilirubin detection by test strip 2+ NEGATIVE Urine urobilinogen measurement by automated test strip (mass/volume) NORMAL NORMAL Urine leukocyte esterase detection by dipstick 3+ NEGATIVE Automated urine sediment erythrocyte count by microscopy (number/high power field) > [HPF] NRG Automated urine sediment leukocyte count by microscopy (number/high power field ) [HPF] NRG Bacteria detection in urine sediment by light microscopy LARGE NRG Squamous epithelial cells detection in urine sediment by light microscopy 2-5 NRG Crystals detection in urine sediment by light microscopy PRESENT NRG Casts detection in urine sediment by light microscopy NONE NRG Mucus detection in urine sediment by light microscopy NEGATIVE NRG Complete urinalysis with reflex to culture YES NRG Amorphous sediment detection in urine sediment by light microscopy FEW DARYN URATES NRG Encounters ACCT No. Visit Date/Time Discharge Status Pt. Type Provider Facility Loc./Unit Complaint [id number] 02/10/2014 11:59:31 02/10/2014 23:59:59 CLS Outpatient Amos Jordin [id number] 12/01/2013 14:37:21 12/01/2013 23:59:59 CLS Outpatient Trena Fisher [id number] 12/05/2017 08:34:51 Document Registration [id number] 11/28/2017 16:15:38 Document Registration [id number] 11/07/2017 07:49:23 Document Registration [id number] 09/05/2017 07:44:28 Document Registration [id number] 09/04/2017 15:11:16 Document Registration [id number] 08/29/2017 07:42:51 Document Registration [id number] 08/22/2017 07:18:32 Document Registration [id number] 08/14/2017 07:36:51 Document Registration [id number] 08/09/2017 16:37:52 Document Registration [id number] 08/08/2017 07:38:42 Document Registration [id number] 07/23/2017 15:20:25 Document Registration [id number] 06/06/2017 07:46:18 Document Registration [id number] 05/15/2017 01:00:22 Document Registration [id number] 05/09/2017 07:55:42 Document Registration [id number] 12/06/2017 18:08:00 Document Registration [id number] 11/22/2017 13:08:00 11/22/2017 18:50:00 DIS Outpatient GRIS MAHAJAN Via [facility] ER INCREASED CONFUSION/ DECREASED APPETITE HEADACHE [id number] 09/22/2015 06:14:00 09/22/2015 11:25:00 DIS Outpatient SHERMAN LIMA DO [facility] STAN.CYST [id number] 09/20/2015 13:46:00 09/20/2015 23:59:59 CLS Outpatient SHERMAN LIMA DO [facility] PREOP STAN.CYST [id number] 12/11/2017 10:46:00 Document Registration [id number] 02/07/2011 12:00:00 Document Registration [id number] 05/14/2017 14:57:13 05/14/2017 23:59:59 CLS Outpatient
[2017-12-11] MEDS ORDERED: CATHETER FLUSH 10 ML SYR IV PRN (14:45)
[2017-12-11 15:00] VITALS: BP 133/63
[2017-12-11] MEDS: NYSTATIN ORAL SUSP 5 ML UDC PO SCH ×2 (15:42→18:48)
[2017-12-11] MEDS: NS IV 1000 ML 1,000 ML IV SCH (15:42)
[2017-12-11] MEDS ORDERED: WARF3TAB56 PO (15:51)
[2017-12-11] MEDS ORDERED: WARF4TAB70 PO (15:51)
[2017-12-11] MEDS ORDERED: ONDA4TAB10 PO (15:51)
[2017-12-11 16:00] VITALS: BP 169/86
[2017-12-11] MEDS ORDERED: LACT1CAP45 PO (16:49)
[2017-12-11] MEDS ORDERED: DICL100G18 TOP (16:49)
[2017-12-11] MEDS ORDERED: MAGN400O7 PO (16:49)
[2017-12-11] MEDS ORDERED: CNC1KV IJ (16:49)
[2017-12-11 17:00] VITALS: BP 154/79
[2017-12-11 19:36] VITALS: BP 164/78
--- NOTE | 2017-12-11 20:43 | History & Physicial ---
History of Present Illness History of Present Illness Reason for visit/HPI History by daughters. Patient nonresponsive. Patient does open her eyes. Patient has a previous stroke on the left side. Patient has drooping of mouth. Patient brought out to the emergency room. Patient was seen few days ago was on Compazine and nonresponsive after that. Serum lactic acid elevated. UA shows infection. INR 3.7. Surgeries patient had many gallbladder hysterectomy knees and back. Patient fragile Date of Admission Dec 11, 2017 at 12:42 Time Seen by Provider: 18:39 I consulted on this patient on 12/11/17 20:32 Attending Physician Rohini Alcazar MD Admitting Physician Rohini Alcazar MD Consult Allergies and Home Medications Allergies Coded Allergies: Penicillins (Unverified Allergy, Unknown, 09/22/15) codeine (Unverified Allergy, Unknown, 09/22/15) morphine (Unverified Allergy, Unknown, 09/22/15) propoxyphene (Unverified Allergy, Unknown, 09/22/15) Home Medications Acetaminophen 325 Mg Tablet, 650 MG PO Q4H PRN for PAIN, (Reported) Atorvastatin Calcium 10 Mg Tablet, 10 MG PO DAILY, (Reported) Bupropion HCl 100 Mg Tablet, 100 MG PO BID, (Reported) Bupropion HCl 100 Mg Tablet, 50 MG PO TID, (Reported) Buspirone HCl 5 Mg Tablet, 5 MG PO BID, (Reported) Cetirizine HCl 10 Mg Tablet, 10 MG PO DAILY, (Reported) Clonidine HCl 0.1 Mg Tablet, 0.1 MG PO PRN PRN for SYSTOLIC BLOOD PRESSURE, ( Reported) Cyanocobalamin 1,000 Mcg/Ml Inj, 1,000 MCG IJ MONTHLY ON THE , (Reported) Diclofenac Sodium 100 Gm Gel..gram., 2 GM TOP QID PRN for JOINT PAIN, (Reported) Diltiazem HCl 180 Mg Cap.er.24h, 180 MG PO DAILY, (Reported) HOLD AND NOTIFY PHYSICIAN IF SYSTOLIC <100 AND/OR DIASTOLIC <60 OR PULSE </= 60 Docusate Sodium 100 Mg Capsule, 100 MG PO BID PRN for CONSTIPATION, (Reported) Duloxetine HCl 20 Mg Cap, 20 MG PO DAILY, (Reported) Duloxetine HCl 60 Mg Capsule.dr, 60 MG PO DAILY, (Reported) Gabapentin 300 Mg Capsule, 300 MG PO QID, (Reported) Hydrocortisone Acetate 25 Mg Supp.rect, 25 MG RC Q12H PRN for HEMORRHOIDS, ( Reported) Ketotifen Fumarate 5 Ml Drops, 2 DROPS OP QID PRN for DRY EYES, (Reported) Lactobacillus Acidophilus 1 Each Capsule, 1 CAP PO DAILY, (Reported) Levetiracetam 1,000 Mg Tablet, 1,000 MG PO BID, (Reported) Magnesium Hydroxide 400 Mg/5 Ml Oral.susp, 30 ML PO DAILY PRN for CONSTIPATION- 7TH LINE, (Reported) Melatonin/Pyridoxine 1 Each Tablet, 1 EACH PO HS, (Reported) Metformin HCl 1,000 Mg Tablet, 1,000 MG PO BID, (Reported) Metoprolol Succinate 25 Mg Tab.er.24h, 25 MG PO DAILY, (Reported) Multivitamin 1 Each Tablet, 1 EACH PO DAILY, (Reported) Omeprazole 20 Mg Tablet.dr, 20 MG PO DAILY, (Reported) Ondansetron HCl 4 Mg Tablet, 4 MG PO Q6H PRN for NAUSEA/VOMITING-1ST LINE, ( Reported) Pioglitazone HCl 30 Mg Tablet, 30 MG PO DAILY, (Reported) Warfarin Sodium 3 Mg Tablet, 3 MG PO SuTuThSa, (Reported) Warfarin Sodium 4 Mg Tablet, 4 MG PO MoWe, (Reported) Patient Home Medication List Home Medication List Reviewed: Yes Past Ydminoc-Ujfcrx-Jhyfro Hx Patient Social History Alcohol Use: Denies Use Recreational Drug Use: No Smoking Status: Former Smoker Former Smoker, Quit: Oct 13, 1981 Type Used: Cigarettes Physical Abuse Screen: No Sexual Abuse: No Recent Foreign Travel: No Contact w/other who traveled: No Recent Hopitalizations: No Recent Infectious Disease Expo: No Immunizations Up To Date Date of Pneumonia Vaccine: Jul 26, 2014 Date of Influenza Vaccine: Jun 24, 2017 Surgeries Yes Respiratory No Cardiovascular Yes Neurological Yes Reproductive System Hx Reproductive Disorders: No Sexually Transmitted Disease: No HIV/AIDS: No Female Reproductive Disorders: Denies Genitourinary Yes UTI-Chronic Gastrointestinal Yes Gastroesophageal Reflux, Pancreatitis Musculoskeletal Yes (W/C) Contracture Endocrine History of Endocrine Disorders: Yes HEENT History of HEENT Disorders: Yes (REMOVED CATARACTS) HEENT Disorders: Cataract Loss of Vision: Bilateral Hearing Impairment: Denies Cancer No Psychosocial History of Psychiatric Problem: Yes Behavioral Health Disorders: Depression Integumentary History of Skin or Integumenta: No Blood Transfusions History of Blood Disorders: No Adverse Reaction to a Blood Tr: No Constitutional: weakness, other (Patient nonresponsive) EENTM: other (Lips drooping) Respiratory: no symptoms reported Cardiovascular: no symptoms reported Gastrointestinal: no symptoms reported Physical Exam Vital Signs Vital Signs - First Documented 12/11/17 12/11/17 10:13 14:20 Temp 97.8 Pulse 117 Resp 18 B/P (MAP) 114/ Pulse Ox 92 O2 Delivery Room Air Capillary Refill : Less Than 3 Seconds General Appearance: No Apparent Distress, Other (Nonresponsive, does open eyes, ) HEENT: Normal ENT Inspection, Other (Drooping left side of mouth usual) Neck: Normal Inspection Respiratory: Lungs Clear, Normal Breath Sounds, No Accessory Muscle Use, No Respiratory Distress Cardiovascular: Regular Rate, Rhythm, No Murmur, Tachycardia Gastrointestinal: Non Tender, Soft Assessment/Plan Assessment and Plan UTI. Left ureteral stone. CVA on left. Renal insufficiency. Altered mental status. Chronic left hip problem Problems: Admission Diagnosis Admission Status: Inpatient Order (span 2 midnights) Reason for Inpatient Admission: Patient unresponsive. UTI. Elevated lactic acid. Stroke on left side. Renal insufficiency Clinical Quality Measures DVT/VTE Risk/Contraindication: Risk Factor Score Per Nursin RFS Level Per Nursing on Admit: 4+=Very High SHASHI NUGENT DO Dec 11, 2017 20:43
[2017-12-11] MEDS: fentaNYL INJECTION 100 MCG/2 ML AMP IVP PRN (23:03)
[2017-12-12] VITALS (8 sets, daily range): BP systolic 130–179; BP diastolic 60–77
[2017-12-12] MEDS: NS IV 1000 ML 1,000 ML IV SCH ×3 (00:15→08:10)
[2017-12-12] MEDS: NYSTATIN ORAL SUSP 5 ML UDC PO SCH ×4 (00:15→17:04)
[2017-12-12] MEDS: VERAPAMIL 5 MG/2 ML (CALAN) VIAL IV SCH ×4 (00:58→12:06)
[2017-12-12 06:40] LABS: BASOPHILS % (AUTO) 0 % (0-10); EOSINOPHILS # (AUTO) 0.5 10^3/uL (0.0-0.3); EOSINOPHILS % (AUTO) 5 % (0-10); HEMATOCRIT 36 % (35-52); LYMPHOCYTES # (AUTO) 1.6 X 10^3 (1.0-4.0); LYMPHOCYTES % (AUTO) 17 % (12-44); MEAN CORPUSCULAR HEMOGLOBIN 30 PG (25-34); MEAN CORPUSCULAR HGB CONC 34 G/DL (32-36); MEAN CORPUSCULAR VOLUME 90 FL (80-99); MEAN PLATELET VOLUME 11.2 FL (7.4-10.4); MONOCYTES # (AUTO) 1.1 X 10^3 (0.0-1.0); MONOCYTES % (AUTO) 11 % (0-12); NEUTROPHILS # (AUTO) 6.6 X 10^3 (1.8-7.8); NEUTROPHILS % (AUTO) 67 % (42-75); PLATELET COUNT 328 10^3/uL (130-400); RED BLOOD COUNT 3.96 10^6/uL (4.35-5.85); WHITE BLOOD COUNT 9.8 10^3/uL (4.3-11.0)
[2017-12-12 07:09] LABS: ALANINE AMINOTRANSFERASE 14 U/L (0-55); ALBUMIN 2.2 GM/DL (3.2-4.5); ALKALINE PHOSPHATASE 89 U/L (40-136); BILIRUBIN,TOTAL 0.4 MG/DL (0.1-1.0); BUN/CREATININE RATIO 28; CALCIUM 8.2 MG/DL (8.5-10.1); CARBON DIOXIDE 19 MMOL/L (21-32); CHLORIDE 110 MMOL/L (98-107); CREATININE SERUM 0.82 MG/DL (0.60-1.30); GFR ESTIMATED > 60; GLUCOSE 151 MG/DL (70-105); POTASSIUM 3.4 MMOL/L (3.6-5.0); SODIUM 143 MMOL/L (135-145)
--- NOTE | 2017-12-12 07:46 | Diagnostic Imaging Report ---
INDICATION: Nephrolithiasis, UTI and sepsis. FINDINGS: Bowel gas pattern is nonspecific. There are no definite abnormal abdominal calcifications. Postsurgical change in the lumbar spine. IMPRESSION: Nonspecific bowel gas pattern. Dictated by: Dictated on workstation # [id number]
[2017-12-12] MEDS ORDERED: MELA3TAB PO (08:03)
[2017-12-12] MEDS ORDERED: MAGN400T29 PO (08:03)
[2017-12-12] MEDS ORDERED: OMG1KC PO (08:03)
[2017-12-12] MEDS ORDERED: ACET325T38 PO (08:03)
[2017-12-12] MEDS ORDERED: BUPR100T15 PO (08:03)
[2017-12-12] MEDS ORDERED: FERR325T18 PO (08:03)
[2017-12-12] MEDS ORDERED: MULT-166 PO (08:03)
[2017-12-12] MEDS: fentaNYL INJECTION 100 MCG/2 ML AMP IVP PRN ×2 (08:04→14:28)
[2017-12-12] MEDS: cefTRIAXone 1 GM/NS 100 ML IVPB IV SCH ×2 (08:07)
--- NOTE | 2017-12-12 08:19 | Progress Note (SOAP) ---
Subjective Time Seen by Provider: 08:15 Subjective/Events-last exam Patient opened eyes this a.m. Nurse stated patient spoke slowly. . Patient lethargic. Tachycardia. Patient working progress Focused Exam Evaluation Lactate Level Laboratory Tests 12/11/17 11:56: Lactic Acid Level 2.82*H 12/11/17 16:35: Lactic Acid Level 2.36*H Objective Exam Vital Signs Date Time Temp Pulse Resp B/P (MAP) Pulse Ox O2 Delivery O2 Flow Rate FiO2 12/12/17 07:00 135 12/12/17 04:00 99.2 135 18 141/67 (91) 96 Room Air 12/12/17 01:00 134 12/12/17 00:00 98.5 138 20 139/63 (88) 93 Room Air 12/11/17 19:36 99.0 135 18 164/78 (106) 98 Room Air 12/11/17 19:00 134 12/11/17 17:00 132 18 154/79 (104) 12/11/17 16:00 98.4 125 20 169/86 (113) 97 Room Air 12/11/17 15:47 125 12/11/17 15:00 98.4 125 20 133/63 (86) 97 Room Air 12/11/17 14:20 120 18 135/90 92 Room Air 12/11/17 10:13 97.8 117 18 114/ Room Air I & O 12/12/17 07:00 Intake Total 400 ml Output Total 475 ml Balance -75 ml Capillary Refill : Less Than 3 Seconds General Appearance: No Apparent Distress, WD/WN HEENT: Other (Droop left side of mouth from previous stroke) Neck: Non Tender Respiratory: No Accessory Muscle Use, No Respiratory Distress Cardiovascular: Tachycardia Gastrointestinal: non tender, soft Results Lab Laboratory Tests 12/11/17 10:27 12/12/17 05:26 Laboratory Tests 12/11/17 10:27: White Blood Count 11.7H, Red Blood Count 4.53, Hemoglobin 13.7, Hematocrit 41, Mean Corpuscular Volume 90, Mean Corpuscular Hemoglobin 30, Mean Corpuscular Hemoglobin Concent 34, Red Cell Distribution Width 16.3H, Platelet Count 407H, Mean Platelet Volume 11.1H, Neutrophils (%) (Auto) 80H, Lymphocytes (%) (Auto) 9L, Monocytes (%) (Auto) 10, Eosinophils (%) (Auto) 2, Basophils (%) (Auto) 0, Neutrophils # (Auto) 9.3H, Lymphocytes # (Auto) 1.1, Monocytes # (Auto) 1.1H, Eosinophils # (Auto) 0.2, Basophils # (Auto) 0.0, Prothrombin Time 36.3H, INR Comment 3.7H, Activated Partial Thromboplast Time 85H, Sodium Level 139, Potassium Level 4.1, Chloride Level 100, Carbon Dioxide Level 26, Anion Gap 13, Blood Urea Nitrogen 32H, Creatinine 1.24, Estimat Glomerular Filtration Rate 42 , BUN/Creatinine Ratio 26, Glucose Level 202H, Calcium Level 9.8, Total Bilirubin 0.6, Aspartate Amino Transf (AST/SGOT) 40H, Alanine Aminotransferase ( ALT/SGPT) 17, Alkaline Phosphatase 114, Total Protein 6.1L, Albumin 2.6L, Lipase 27 12/11/17 11:56: Lactic Acid Level 2.82*H 12/11/17 12:28: Urine Color YELLOW, Urine Clarity VERY CLOUDYH, Urine pH 5, Urine Specific [place] 1.025H, Urine Protein 3+H, Urine Glucose (UA) 2+H, Urine Ketones NEGATIVE, Urine Nitrite NEGATIVE, Urine Bilirubin 2+H, Urine Urobilinogen NORMAL , Urine Leukocyte Esterase 3+H, Urine RBC (Auto) 5+H, Urine RBC >100H, Urine WBC 10-25H, Urine Squamous Epithelial Cells 2-5, Urine Crystals PRESENTH, Urine Amorphous Sediment FEW DARYN URATESH, Urine Bacteria LARGEH, Urine Casts NONE, Urine Mucus NEGATIVE, Urine Culture Indicated YES 12/11/17 16:35: Lactic Acid Level 2.36*H 12/12/17 05:26: White Blood Count 9.8, Red Blood Count 3.96L, Hemoglobin 12.0, Hematocrit 36, Mean Corpuscular Volume 90, Mean Corpuscular Hemoglobin 30, Mean Corpuscular Hemoglobin Concent 34, Red Cell Distribution Width 16.0H, Platelet Count 328, Mean Platelet Volume 11.2H, Neutrophils (%) (Auto) 67, Lymphocytes (%) (Auto) 17 , Monocytes (%) (Auto) 11, Eosinophils (%) (Auto) 5, Basophils (%) (Auto) 0, Neutrophils # (Auto) 6.6, Lymphocytes # (Auto) 1.6, Monocytes # (Auto) 1.1H, Eosinophils # (Auto) 0.5H, Basophils # (Auto) 0.0, Sodium Level 143, Potassium Level 3.4L, Chloride Level 110#H, Carbon Dioxide Level 19L, Anion Gap 14, Blood Urea Nitrogen 23H, Creatinine 0.82, Estimat Glomerular Filtration Rate > 60, BUN /Creatinine Ratio 28, Glucose Level 151H, Calcium Level 8.2L, Total Bilirubin 0.4, Aspartate Amino Transf (AST/SGOT) 32, Alanine Aminotransferase (ALT/SGPT) 14, Alkaline Phosphatase 89, Total Protein 5.0L, Albumin 2.2L Assessment/Plan Assessment/Plan Assess & Plan/Chief Complaint UTI. Left ureteral stone. Previous stroke. Patient opening her eyes. Patient lethargic.. . 12/12/17. UTI. Left ureteral stone. Patient opening her eyes this morning area Patient lethargic Clinical Quality Measures Admission Status Admission Dx UTI. Left ureteral stone. CVA on left. Renal insufficiency. Altered mental status. Chronic left hip problem DVT/VTE Risk/Contraindication: Risk Factor Score Per Nursin RFS Level Per Nursing on Admit: 4+=Very High Contraindications-Pharm: Other *list below* SHASHI NUGENT DO Dec 12, 2017 08:19
[2017-12-12] MEDS: ASPIRIN 81 MG CHEW (CHILDREN'S ASA) PO SCH (08:40)
--- NOTE | 2017-12-12 09:41 | ST Dysphagia Evaluation ---
Speech Evaluation-General Medical Diagnosis Altered Mental Status Onset Date: Dec 11, 2017 Therapy Diagnosis Therapy Diagnosis: Mild Oral Dysphagia/Mild Odynophagia Precautions Precautions: Aspiration Precautions/Isolations: Fall Prevention, Standard Precautions, Pressure Ulcer Referral Referring Physician: Dr. Wilfredo Moreau Reason for Referral: Evaluation/Treatment Clinical Bedside Swallowing Evaluation Medical History Pertinent Medical History: CVA (Right Cerebral Infarct (left facial droop)), GERD Current History The patient was recently admitted to [facility] following a change in mental status. Reviewed History: Yes Speech PLF/Current-Dysphagia Prior Level of Function The patient was unable to provide prior level of function information to the clinician. No additional family members were present at bedside. Subjective The patient was laying in bed, eyes open, upon entrance. The patient responded to the clinician's question when asked how she was feeling. Per patient, "not too good this morning." The clinician asked for additional information in attempts to provide comfort for the patient, however, the patient was unable to provide any additional input. The patient was agreeable to participation in the dysphagia evaluation stating, "I want a big glass of water." Cognitive Status The patient did not respond to orientation questions poised by the clinician. Oral Motor Skills Dentition: Edentalous (The patient stated she had dentures, however, the clinician could not locate the dentures at bedside.) Ability to Follow Directions: Fair The patient is NPO pending the results of the dysphagia evaluation. Oral Expression Ability: Moderate Impairment Voice Voice Phonatory-Based Quality: Weak Voice Pitch: Normal Voice Loudness: Moderately Soft/Quiet Face Facial Symmetry: Asymmetrical (Left facial droop.) Oral-Facial Assessment Oral-Facial Dentition: Normal Labial Seal Description: Droops Left Smile: Droops Left Puff Cheeks: Reduced Strength (Left.) The patient did not follow prompts for lingual protrusion. The patient did not follow prompts for lateral lingual movements. Pharynx Velopharyngeal Move.: Normal Volitional Dry Swallow: No Dysphagia Evaluation Consistencies Presented: Thin Liquid, Pureed Oral Phase: Reduced Oral Transit - No oral pocketing was visualized with any consistency provided, however, due to the patient's left facial droop she is at risk for pocketing throughout meals. The patient did require verbal prompts to initiate a swallow intermittently, therefore, oral holding is a concern. - Due to the oral holding behavior and lack of dentition, solid consistencies were deferred. - The patient grimaced upon swallowing. The patient denied discomfort to the clinician. Following discussion with the patient's RN, the patient has thrush. The thrush may be the reason behind the odynophagia with all consistencies. - No signs/symptoms of aspiration or laryngeal penetration were demonstrated with multiple boluses of thin liquid (via straw drink or teaspoon) or puree consistency. The patient's vocal quality remained clear throughout the trials. Dietary Recommendations: Pureed Liquid Recommendations: Thin Swallowing Precautions: Oral Supervision Staff, Oral Supervision Caregiver, Pocketing (Left.), Small Bites and Sips, Sitting 90 Degrees 30 Post Intake Dysphagia Evaluation Summary The patient demonstrated mild oral dysphagia and odynophagia characterized by reduced posterior transit (intermittent oral holding) and grimacing upon the swallow. Barriers to Learning Reduced alertness. 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 The patient will tolerate the least restrictive diet without signs/symptoms of aspiration or laryngeal penetration. Time Frame: Five Days Speech-Plan Treatment Plan Speech Therapy Treatment Plan: Continue Plan of Care Continue skilled speech pathology to target swallowing safety. Treatment Duration: Dec 17, 2017 Frequency: 3 times per week Estimated Hrs Per Day: .25 hour per day Rehab Potential: Guarded Safety Risks/Education Teaching Recipient: Patient Teaching Methods: Discussion Response to Teaching: Unable to Comprehend, Reinforcement Needed Education Topics Provided: Results, Recommendations, Swallowing Strategies, Plan of Care Time Speech Therapy Time In: 09:15 Speech Therapy Time Out: 09:35 Total Billed Time: 20 Billed Treatment Time 1, SHEN GAFFNEY Dec 12, 2017 09:40
[2017-12-12] MEDS: ASPIRIN 300 MG (5 GR) SUPPOSITORY PR SCH (09:43)
[2017-12-12] MEDS ORDERED: ENOXAPARIN 80 MG/0.8 ML (LOVENOX) SYR SC NR (09:45)
[2017-12-12] MEDS ORDERED: NS 250 ML (IVPB) BAG IV ONE (10:30)
[2017-12-12] MEDS ORDERED: IOHEXOL 350 MG/ML 150 ML (OMNIPAQUE 350) VIAL IV ONE (10:30)
[2017-12-12] MEDS ORDERED: CATHETER FLUSH 10 ML SYR IV PRN (10:30)
--- NOTE | 2017-12-12 10:42 | Physician Query Clarification ---
PQ-Uncertain Diagnosis Admission/Discharge Admission Date: Dec 11, 2017 at 12:42 Discharge Date: The medical record reflects the following clinical scenario: History/Risk Factors: UTI/Ureteral stone Altered mental status Clinical Findings: WBC 11.7, T97.8, Pulse 117, Resp 18, Systolic BP 114, Lactic acid 2.82 Treatment: IV Ceftriaxone Sodium ED nurse practitioner, Keyur Summers, gave a dx of sepsis. Question: Is Sepsis a clinically valid diagnosis? [diagnosis] was documented in the [dates and type of documents] with no further documentation in the medical record. Please document a response below. PHYSICIAN RESPONSE Diagnosis clinically valid: No, conditon ruled out In responding to this query, please exercise your independent professional judgment. The purpose of this communication is to more accurately reflect the complexity of your patients condition. The fact that a question is asked does not imply that any particular answer is desired or expected. Thank you for your timely response to this clarification. Requestors name: Aspen Magaña [facility] Phone # ext [phone] or [phone] THIS PHYSICIAN QUERY FORM IS A PERMANENT PART OF THE MEDICAL RECORD ASPEN MAGAÑA Dec 12, 2017 10:42 SHASHI NUGENT DO Dec 12, 2017 12:18
[2017-12-12] MEDS ORDERED: RECEIVED CONTRAST (Hold Metformin) IV SCH (11:00)
--- NOTE | 2017-12-12 11:30 | Diagnostic Imaging Report ---
Procedure: Bilateral lower extremity venous Doppler. Indication: Leg pain and swelling. Findings: Spectral color flow imaging of the deep venous system of each lower extremity was performed. There are no prior studies available for comparison. There is generally good blood flow and compressibility at all levels. There is no evidence for a deep venous thrombosis. Impression: There is no evidence for a deep venous thrombosis of either lower extremity. Dictated by: Dictated on workstation # [id number]
--- NOTE | 2017-12-12 11:51 | CONSULTATION REPORT ---
DATE OF SERVICE: 12/12/2017 ATTENDING PHYSICIAN: Rohini Alcazar MD SUMMARY: After reviewing the patient's record being a very poor historian, this is a 77-year-old white female admitted through the emergency room with lethargy and unresponsiveness and some urosepsis, who was found to have multiple renal stones most prominently a 5 mm stone in the proximal left ureter with very mild obstruction, cannot obtain any information from her. She denies pain. She has no CVA tenderness, no left upper quadrant tenderness or left lower quadrant. Her labs today are improved. She is afebrile. KUB today is very hard to see the stone. She is being worked up for possible DVT and/or PE. IMPRESSION: 1. Left proximal ureteral stone. 2. Left renal stone. 3. Urosepsis. 4. Multiple medical problems. RECOMMENDATIONS: The ESWL machine will be here on next Saturday. We can take her to the operating room if medically possible. No Coumadin and we cannot see this stone on fluoroscopy. We could do retrograde urogram, ureteroscopy and possible lithotripsy basket or ESWL. We will take one day at a time. Job ID: [id number] DocumentID: [id number] Dictated Date: 12/12/2017 10:46:42 Client Experience Manager Date: 12/12/2017 11:23:22 Dictated By: EUSEBIA OSORIO MD
--- NOTE | 2017-12-12 12:03 | Diagnostic Imaging Report ---
PROCEDURE: CT angiography of the chest with contrast. TECHNIQUE: Multiple contiguous axial images were obtained through the chest after uneventful bolus administration of intravenous contrast. Reconstructed CTA MIP acquisitions were also performed. INDICATION: Tachycardia. COMPARISON: No prior studies are available for comparison. FINDINGS: Evaluation of the pulmonary system is without evidence of thromboembolism. The central and lobar pulmonary arteries are without evidence of filling defect. The segmental and subsegmental branches are not well opacified on this study. The thoracic aorta is normal in caliber. No dissection is identified. No pericardial or pleural fluid is detected. The right apical pleural-parenchymal scarring is seen. There is linear atelectasis or scarring in the right lower lobe. No parenchymal mass or infiltrate is identified. Imaging through the upper abdomen does show diffuse low density throughout the liver, consistent with hepatic steatosis. The gallbladder is surgically absent. There appears to be mild enlargement of the pancreas. In addition, there is a suggestion of mild peripancreatic inflammatory stranding. This can be seen with acute pancreatitis. No peripancreatic fluid collection or pseudocyst formation is identified. There appears to be fairly homogeneous enhancement to the pancreas. IMPRESSION: 1. No evidence of pulmonary embolism or thoracic aortic dissection. 2. Hepatic steatosis. 3. Findings suspicious for acute pancreatitis. Correlation with laboratory analysis is recommended. Results were discussed with Dr. Jaramillo prior to this dictation. Dictated by: Dictated on workstation # [id number]
[2017-12-12] MEDS ORDERED: meTOprolol 5 MG/5 ML (LOPRESSOR) VIAL IV SCH (12:26)
[2017-12-12] MEDS ORDERED: MILK OF MAGNESIA 400 MG/5 ML 30 ML UDC PO PRN (12:45)
[2017-12-12] MEDS ORDERED: DOCUSATE SODIUM 100 MG (COLACE) CAP PO PRN (12:45)
[2017-12-12] MEDS ORDERED: ACETAMINOPHEN 325 MG TABLET/CAPLET (TYLENOL) PO PRN (12:45)
[2017-12-12 13:11] LABS: AMYLASE 15 U/L (25-125); LIPASE 22 U/L (8-78)
[2017-12-12] MEDS ORDERED: ONDANSETRON 4 MG (ZOFRAN) ORAL DISSOLVE TAB PO PRN (13:45)
[2017-12-12] MEDS: DILTIAZEM 180 MG (CARDIZEM CD) CAP PO SCH (13:48)
[2017-12-12] MEDS: LACTOBACILLUS Acidoph/Bulgar (LACTINEX/FLORANEX) TAB PO SCH (13:48)
[2017-12-12] MEDS: ACETAMINOPHEN 325 MG TABLET/CAPLET (TYLENOL) PO SCH ×2 (13:49→21:52)
--- NOTE | 2017-12-12 15:46 | Consultation-Cardiology ---
HPI-Cardiology Cardiology Consultation: Date of Consultation 12/12/17 Date of Admission Attending Physician Rohini Alcazar MD Admitting Physician Rohini Alcazar MD Consulting Physician Gregoria JARAMILLO MD HPI: Time Seen by Provider: 12:00 Chief Complaint: Tachycardia This is a 77-year-old lady who is a patient of Dr. Alcazar and Dr. Moreau is the admitting physician. She has history of left-sided stroke and hip problem. She presented with altered mental status to the ER and was found to have UTI sepsis, ureteral stone and renal stone. Urology was also consulted. The patient was unresponsive or altered mental status on admission however when I saw the patient she was awake but not communicating. I tried to get a history from her but she was unable to answer my questions. I'm not sure if this is because of altered mental status or this is her baseline due to her previous CVA. However with the nurse and myself we were able to figure out that she was not having any chest pain. We did notice mild swelling of her lower extremity. She is on Coumadin and I could not find a reason after reviewing all her records. Review of Systems-Cardiology Review of Systems Constitutional: As described under HPI Eyes: No As described under HPI, No no symptoms reported, No blindness, No blurred vision, No contact lenses, No drainage, No decreased acuity, No foreign body sensation, No glasses, No inflammation, No pain, No photophobia, No previous injury, No shadows, No tunnel vision, No other, No vision change Ears/Nose/Throat: No As described under HPI, No no symptoms reported, No chronic hearing loss, No epistaxis, No ear discharge, No ear pain, No loose teeth, No mouth pain, No mouth swelling, No nasal drainage, No nose pain, No recent hearing loss, No throat pain, No throat swelling, No ulcerations, No other Respiratory: No no symptoms reported, No As described under HPI, No cough, No orthopnea, No shortness of breath, No SOB with excertion, No SOB at rest, No stridor, No wheezing, No other Cardiovascular: No no symptoms reported, No As described under HPI, No chest pain, No edema, No irregular heart rate, No lightheadedness, No palpitations, No syncope, No other Gastrointestinal: No no symptoms reported, No As described under HPI, No abdomen distended, No abdominal pain, No blood streaked bowels, No constipation , No diarrhea, No difficulty swallowing, No nausea, No poor appetite, No poor fluid intake, No rectal bleeding, No vomiting, No other, No nausea/vomiting/ diarrhea, No stool coloration changes Genitourinary: As described under HPI Musculoskeletal: No no symptoms reported, No As describe under HPI, No back pain, No gout, No joint pain, No joint swelling, No muscle pain, No muscle stiffness, No neck pain, No other Skin: No no symptoms reported, No As described under HPI, No change in color, No change in hair/nails, No dryness, No lesions, No lumps, No rash, No other, No skin related problems, No ulcerations, No rash on exposed areas, No ulcerations on exposed areas Psychiatric/Neurological: As described under HPI PHF-Crwinu-Etccrr Hx Patient Social History Alcohol Use: Denies Use Recreational Drug Use: No Smoking Status: Former Smoker Type Used: Cigarettes Recent Foreign Travel: No Recent Infectious Disease Expo: No Hospitalization with Isolation: Denies Physical Abuse Screen: No Sexual Abuse: No Immunizations Up To Date Date of Pneumonia Vaccine: Jul 26, 2014 Date of Influenza Vaccine: Jun 24, 2017 Past Medical History PMH As described under Assessment. Allergies and Home Medications Allergies Coded Allergies: Penicillins (Unverified Allergy, Unknown, 09/22/15) codeine (Unverified Allergy, Unknown, 09/22/15) morphine (Unverified Allergy, Unknown, 09/22/15) propoxyphene (Unverified Allergy, Unknown, 09/22/15) Home Medications Acetaminophen 325 Mg Tablet, 650 MG PO TID, (Reported) TAKES 2 (325MG) TABLETS Acetaminophen 325 Mg Tablet, 650 MG PO Q4H PRN for PAIN-MILD, (Reported) TAKES 2 (325MG) TABLETS - NOT TO EXCEED 3GM PER DAY OF TYLENOL Atorvastatin Calcium 10 Mg Tablet, 10 MG PO HS, (Reported) Bupropion HCl 100 Mg Tablet, 50 MG PO BID, (Reported) TAKES 1/2 (100MG) TABLET Buspirone HCl 5 Mg Tablet, 5 MG PO BID, (Reported) Cyanocobalamin 1,000 Mcg/Ml Inj, 1,000 MCG IJ MONTHLY ON THE , (Reported) Diclofenac Sodium 100 Gm Gel..gram., 2 GM TOP QID PRN for JOINT PAIN, (Reported) Diltiazem HCl 180 Mg Cap.er.24h, 180 MG PO DAILY, (Reported) HOLD AND NOTIFY PHYSICIAN IF SYSTOLIC <100 AND/OR DIASTOLIC <60 OR PULSE </= 60 Docusate Sodium 100 Mg Capsule, 100 MG PO BID PRN for CONSTIPATION-1ST LINE, ( Reported) Duloxetine HCl 20 Mg Cap, 20 MG PO HS, (Reported) Duloxetine HCl 60 Mg Capsule.dr, 60 MG PO DAILY, (Reported) Ferrous Sulfate 325 Mg Tablet, 325 MG PO DAILY, (Reported) Gabapentin 300 Mg Capsule, 300 MG PO QID, (Reported) Lactobacillus Acidophilus 1 Each Capsule, 1 CAP PO DAILY, (Reported) Levetiracetam 1,000 Mg Tablet, 1,000 MG PO BID, (Reported) Magnesium Hydroxide 400 Mg/5 Ml Oral.susp, 30 ML PO DAILY PRN for CONSTIPATION- 7TH LINE, (Reported) Magnesium Oxide 400 Mg Tablet, 400 MG PO DAILY, (Reported) Melatonin 3 Mg Tablet, 3 MG PO HS, (Reported) Metformin HCl 1,000 Mg Tablet, 1,000 MG PO BID, (Reported) Metoprolol Succinate 25 Mg Tab.er.24h, 25 MG PO DAILY, (Reported) Multivitamin with Minerals 1 Each Tablet, 1 TAB PO DAILY, (Reported) Brandon 3 Polyunsat Fatty Acids 1,000 Mg Cap, 1,000 MG PO BID, (Reported) Omeprazole 20 Mg Tablet.dr, 20 MG PO DAILY, (Reported) Ondansetron HCl 4 Mg Tablet, 4 MG PO Q6H PRN for NAUSEA/VOMITING-1ST LINE, ( Reported) Warfarin Sodium 3 Mg Tablet, 3 MG PO SuTuThSa, (Reported) Warfarin Sodium 4 Mg Tablet, 4 MG PO MoWe, (Reported) Patient Home Medication List Home Medication List Reviewed: Yes Physical Exam-Cardiology Physical Exam Vital Signs/I&O Vital Sign - Last 12Hours 12/12/17 12/12/17 12/12/17 12/12/17 07:00 08:00 12:05 13:00 Temp 97.9 98.0 Pulse 135 131 130 129 Resp 18 20 B/P (MAP) 179/77 (111) 142/64 (90) Pulse Ox 96 93 O2 Delivery Room Air Room Air 12/12/17 16:00 Temp 97.8 Pulse 132 Resp 18 B/P (MAP) 166/71 (102) Pulse Ox 91 O2 Delivery Room Air Intake and Output 12/12/17 00:00 Intake Total 0 ml Output Total 250 ml Balance -250 ml Capillary Refill : Less Than 3 Seconds Constitutional: appears stated age, other (noncommunicative but alert) HEENT: PERRL, No discharge, hearing is well preserved, oral hygience is good, No ulceration, No xanthelasmas are seen Neck: No non-tender, No full range of motion, No supple, No normal inspection, No carotid bruit, No limited range of motion, No lymphadenopathy (R), No lymphadenopathy (L), No tender lateral, No tender midline, No thyromegaly, No other, No carotid pulses are 2 + bilaterally, No with good upstrokes Respiratory: No accessory muscle use, No respiratory distress, No chest tender , No chest expansion is symmetric, chest is bilaterally symmetric, No lungs clear to percussion, lungs clear to auscultation, No crackles, No rhonchi, No rales, No stridor, No wheezing, No pleural rub, No other Cardiovascular: No regular rate-rhythm, No irregularly irregular, No extra beats, No parasternal heave is noted, No JVD, No edema, No bradycardia, tachycardia, No point of maximal impulse, No cardiac thrills are palpable, S1 and S2, No gallop/S3, No gallop/S4, No diastolic murmur, No systolic murmur, No friction rub, No click, No other Gastrointestinal: No tender, No soft, No round, No distended, No pulsatile mass , No organomegaly, No guarding, No rebound, No tenderness, No hernia, No mass, No audible bowel sounds, No abnormal bowel sounds, No abdominal bruits, No spleenomegaly, No other Rectal: deferred Extremities: pedal edema Neurologic/Psychiatric: alert, facial droop, disoriented x 3 Skin: No normal color, No warm/dry, No cyanosis, No cool, No diaphoresis, No damp, No ecchymosis, No jaundice, No mottled, No pallor, No rash, No tattoos/ piercings, No ulcerations, No rash on exposed areas, No ulcerations on exposed areas, No other Data Review Labs Laboratory Tests 12/12/17 05:26: White Blood Count 9.8, Red Blood Count 3.96L, Hemoglobin 12.0, Hematocrit 36, Mean Corpuscular Volume 90, Mean Corpuscular Hemoglobin 30, Mean Corpuscular Hemoglobin Concent 34, Red Cell Distribution Width 16.0H, Platelet Count 328, Mean Platelet Volume 11.2H, Neutrophils (%) (Auto) 67, Lymphocytes (%) (Auto) 17 , Monocytes (%) (Auto) 11, Eosinophils (%) (Auto) 5, Basophils (%) (Auto) 0, Neutrophils # (Auto) 6.6, Lymphocytes # (Auto) 1.6, Monocytes # (Auto) 1.1H, Eosinophils # (Auto) 0.5H, Basophils # (Auto) 0.0, Sodium Level 143, Potassium Level 3.4L, Chloride Level 110#H, Carbon Dioxide Level 19L, Anion Gap 14, Blood Urea Nitrogen 23H, Creatinine 0.82, Estimat Glomerular Filtration Rate > 60, BUN /Creatinine Ratio 28, Glucose Level 151H, Calcium Level 8.2L, Total Bilirubin 0.4, Aspartate Amino Transf (AST/SGOT) 32, Alanine Aminotransferase (ALT/SGPT) 14, Alkaline Phosphatase 89, Total Protein 5.0L, Albumin 2.2L 12/12/17 05:56: Amylase Level 15L, Lipase 22 12/12/17 08:51: Lactic Acid Level 0.89 12/12/17 10:14: D-Dimer 0.99H 12/12/17 15:40: Glucometer 209H Microbiology 12/11/17 Urine Culture - Preliminary, Resulted ECG Impression ECG Comment Tachycardia with atrial activity; differentials include sinus tachycardia versus right atrial tachycardia. A/P-Cardiology Assessment/Admission Diagnosis Altered mental status, UTI sepsis, Metabolic acidosis, Urolithiasis, Chronic kidney disease, Tachycardia, CVA, Lower extremity swelling. Plan Cardiology was consulted for tachycardia. I reviewed her EKG and telemetry which shows tachycardia with atrial activity. Differential diagnosis includes sinus tachycardia versus right atrial tachycardia. I could not find any old EKGs so that I could compare P-wave morphology. However the tachycardia is regular and not atrial fibrillation. The patient is also on Coumadin and I am unsure about the indication. Not able to get any records. With sinus tachycardia, lower extremity swelling, nonambulatory status with hip pathology -I was concerned about DVT and pulmonary embolism. D-dimer was mildly elevated. Ultrasound of lower extremity and CT angiography was performed. No DVT was found in the vessels imaged. CT angiography did not show any central pulmonary embolism. Incidental finding of pancreatic inflammation was noted. The primary team has been notified. Initial lipase was negative. Amylase and lipase will be checked again. The patient was on a beta david and calcium channel david as an outpatient. Both will be started. Coumadin has been held for possible urological procedure with Dr. Read. UTI sepsis treatment with IV fluids and antibiotics. I will continue to follow. Thank you for your consultation. Please call me if you have any questions. Iza Jaramillo MD, FACP, FACC, FSCAI, FHRS, CCDS Interventional Cardiology Cardiac Electrophysiology Vascular Medicine and Endovascular Interventions Clinical Quality Measures DVT/VTE Risk/Contraindication: Risk Factor Score Per Nursin RFS Level Per Nursing on Admit: 4+=Very High Contraindications-Pharm: Other *list below* Gregoria JARAMILLO MD Dec 12, 2017 3:46 pm
[2017-12-12] MEDS: inSUlin (REGULAR) HUMAN 1 UNIT/0.01 ML (CHARGE PER UNIT) SC SCH ×2 (16:42→20:58)
[2017-12-12] MEDS: meTOprolol 5 MG/5 ML (LOPRESSOR) VIAL IV PRN (16:43)
[2017-12-12] MEDS: ATORVASTATIN 10 MG (LIPITOR) TABLET PO SCH (21:52)
[2017-12-12] MEDS: LEVETIRACETAM 1,000 MG (KEPPRA) TABLET PO SCH (21:52)
[2017-12-13] MEDS: meTOprolol 5 MG/5 ML (LOPRESSOR) VIAL IV PRN ×2 (00:21→14:20)
[2017-12-13] MEDS: NYSTATIN ORAL SUSP 5 ML UDC PO SCH ×4 (00:21→17:00)
[2017-12-13] MEDS: NS IV 1000 ML 1,000 ML IV SCH ×2 (01:21→16:35)
[2017-12-13 04:00] VITALS: BP 153/72
[2017-12-13] MEDS: inSUlin (REGULAR) HUMAN 1 UNIT/0.01 ML (CHARGE PER UNIT) SC SCH ×4 (05:34→22:42)
[2017-12-13] MEDS: FERROUS SULF 325 MG (IRON) TAB PO SCH (06:13)
[2017-12-13] MEDS: PANTOPRAZOLE 20 MG TABLET (PROTONIX) PO SCH (06:13)
[2017-12-13] MEDS: MAGNESIUM OXIDE (MAG-OX)400 MG TAB PO SCH (06:13)
[2017-12-13 06:30] LABS: HEMOGLOBIN 10.9 G/DL (11.5-16.0); MEAN PLATELET VOLUME 10.9 FL (7.4-10.4); RED BLOOD COUNT 3.63 10^6/uL (4.35-5.85); RED CELL DISTRIBUTION WIDTH 15.9 % (10.0-14.5); WHITE BLOOD COUNT 10.8 10^3/uL (4.3-11.0)
[2017-12-13 06:40] LABS: INR 4.2 (0.8-1.4); PROTHROMBIN TIME PATIENT 40.2 SEC (12.2-14.7)
[2017-12-13 06:52] LABS: ALANINE AMINOTRANSFERASE 23 U/L (0-55); ALBUMIN 2.1 GM/DL (3.2-4.5); ALKALINE PHOSPHATASE 91 U/L (40-136); BILIRUBIN,TOTAL 0.3 MG/DL (0.1-1.0); BUN/CREATININE RATIO 14; CALCIUM 7.6 MG/DL (8.5-10.1); CARBON DIOXIDE 24 MMOL/L (21-32); CHLORIDE 109 MMOL/L (98-107); CREATININE SERUM 0.71 MG/DL (0.60-1.30); GFR ESTIMATED > 60; GLUCOSE 174 MG/DL (70-105); POTASSIUM 2.9 MMOL/L (3.6-5.0); SODIUM 141 MMOL/L (135-145); TOTAL PROTEIN 4.6 GM/DL (6.4-8.2)
--- NOTE | 2017-12-13 07:24 | Progress Note (SOAP) ---
Subjective Time Seen by Provider: 07:20 Subjective/Events-last exam Altered mental status resolved. Patient awake this morning. Patient talking. Left ureteral stone. Tachycardia better. Heart rate 101. Blood pressure 153/72. INR 4.2 elevated potassium 2.9. CAT scan refers pancreatitis but blood tests normal Focused Exam Evaluation Lactate Level Laboratory Tests 12/11/17 11:56: Lactic Acid Level 2.82*H 12/11/17 16:35: Lactic Acid Level 2.36*H 12/12/17 08:51: Lactic Acid Level 0.89 Objective Exam Vital Signs Date Time Temp Pulse Resp B/P (MAP) Pulse Ox O2 Delivery O2 Flow Rate FiO2 12/13/17 04:00 98.0 101 16 153/72 (99) 96 Room Air 12/13/17 01:00 105 12/12/17 23:37 98.7 117 20 150/69 (96) 93 Room Air 12/12/17 19:46 97.1 113 18 130/60 (83) 92 Room Air 12/12/17 19:00 102 12/12/17 18:41 113 130/60 (83) 12/12/17 16:00 97.8 132 18 166/71 (102) 91 Room Air 12/12/17 13:00 129 12/12/17 12:05 98.0 130 20 142/64 (90) 93 Room Air 12/12/17 08:00 97.9 131 18 179/77 (111) 96 Room Air I & O 12/13/17 07:00 Intake Total 1120 ml Output Total 1550 ml Balance -430 ml Capillary Refill : Less Than 3 Seconds General Appearance: No Apparent Distress, WD/WN HEENT: Normal ENT Inspection Neck: Normal Inspection Respiratory: Lungs Clear, Normal Breath Sounds, No Accessory Muscle Use, No Respiratory Distress Cardiovascular: Regular Rate, Rhythm, No Murmur Gastrointestinal: non tender, soft Results Lab Laboratory Tests 12/13/17 05:35 Laboratory Tests 12/12/17 08:51: Lactic Acid Level 0.89 12/12/17 10:14: D-Dimer 0.99H 12/12/17 15:40: Glucometer 209H 12/12/17 20:27: Glucometer 152H 12/13/17 05:33: Glucometer 161H 12/13/17 05:35: White Blood Count 10.8, Red Blood Count 3.63L, Hemoglobin 10.9L, Hematocrit 33L , Mean Corpuscular Volume 90, Mean Corpuscular Hemoglobin 30, Mean Corpuscular Hemoglobin Concent 34, Red Cell Distribution Width 15.9H, Platelet Count 360, Mean Platelet Volume 10.9H, Prothrombin Time 40.2H, INR Comment 4.2H, Sodium Level 141, Potassium Level 2.9L, Chloride Level 109H, Carbon Dioxide Level 24, Anion Gap 8, Blood Urea Nitrogen 10, Creatinine 0.71, Estimat Glomerular Filtration Rate > 60, BUN/Creatinine Ratio 14, Glucose Level 174H, Calcium Level 7.6L, Total Bilirubin 0.3, Aspartate Amino Transf (AST/SGOT) 42H, Alanine Aminotransferase (ALT/SGPT) 23, Alkaline Phosphatase 91, Total Protein 4.6L, Albumin 2.1L Microbiology 12/11/17 Blood Culture - Preliminary, Resulted No growth 12/11/17 Urine Culture - Preliminary, Resulted Assessment/Plan Assessment/Plan Assess & Plan/Chief Complaint UTI. Left ureteral stone. Previous stroke. Patient opening her eyes. Patient lethargic.. . 12/12/17. UTI. Left ureteral stone. Patient opening her eyes this morning area Patient lethargic. . 12/13/17. Left ureteral stone. Patient opening eyes and talking this morning. Patient more alert. Left ureteral stone. UTI. Hypokalemia. Elevated INR to 4.2. Tachycardia resolving. Hypertension today. Patient improving Clinical Quality Measures Admission Status Admission Dx UTI. Left ureteral stone. CVA on left. Renal insufficiency. Altered mental status. Chronic left hip problem DVT/VTE Risk/Contraindication: Risk Factor Score Per Nursin RFS Level Per Nursing on Admit: 4+=Very High Contraindications-Pharm: Other *list below* SHASHI NUGENT DO Dec 13, 2017 07:23
[2017-12-13 08:00] VITALS: BP 137/74
[2017-12-13] MEDS ORDERED: KCL 10 MEQ TAB (MICRO K) PO NR (08:00)
[2017-12-13] MEDS ORDERED: fluCOnazole (DIFLUCAN) 100 MG TAB PO NR (08:00)
[2017-12-13] MEDS: cefTRIAXone 1 GM/NS 100 ML IVPB IV SCH ×2 (08:49)
[2017-12-13] MEDS: ASPIRIN 81 MG CHEW (CHILDREN'S ASA) PO SCH (08:50)
[2017-12-13] MEDS: DILTIAZEM 180 MG (CARDIZEM CD) CAP PO SCH (08:50)
[2017-12-13] MEDS: LEVETIRACETAM 1,000 MG (KEPPRA) TABLET PO SCH ×2 (08:50→22:41)
[2017-12-13] MEDS: LACTOBACILLUS Acidoph/Bulgar (LACTINEX/FLORANEX) TAB PO SCH (08:50)
[2017-12-13] MEDS: ACETAMINOPHEN 325 MG TABLET/CAPLET (TYLENOL) PO SCH ×3 (08:50→22:41)
[2017-12-13] MEDS: ASPIRIN 300 MG (5 GR) SUPPOSITORY PR SCH (09:28)
--- NOTE | 2017-12-13 09:31 | Speech Therapy Daily Note ---
Speech Daily Progress Note Subjective Date Seen by Provider: Dec 13, 2017 Time Seen by Provider: 08:45 The patient was laying in bed, asleep upon entrance. The patient was found to have emesis down his chin and on her chest. The patient was easily woke by the clinician, however, was unaware of what happened. The patient does report stomach pain. The patient's RN was present who was notified and provided Zofran. The clinician aided in cleaning the patient. Due to nausea, the patient deferred a full re-evaluation. The clinician observed the patient taking morning medication (with ice cream and water). Objective Thin Liquid (via straw): No signs/symptoms of aspiration were demonstrated with multiple boluses of thin liquid via straw. Ice Cream with medication: The patient intermittently gagged on the medication stating the taste was not settling. Regardless of gagging, the patient did not demonstrate any signs/symptoms of aspiration while taking morning medication crushed and placed in ice cream. Assessment Assessment Current Status: Fair Progress Treatment Plan Continue Plan of Care Speech Assisted Goals Paint Pourer Goals 1. The patient will tolerate the least restrictive diet without signs/symptoms of aspiration or laryngeal penetration. Time Frame: Five Days Speech-Plan Treatment Plan Speech Therapy Treatment Plan: Continue Plan of Care Continue skilled speech pathology to target swallowing safety. Treatment Duration: Dec 17, 2017 Frequency: 3 times per week Estimated Hrs Per Day: .25 hour per day Rehab Potential: Guarded Safety Risks/Education Teaching Recipient: Patient Teaching Methods: Discussion Response to Teaching: Unable to Comprehend Education Topics Provided: Results, Recommendations, Swallowing Strategies Time Speech Therapy Time In: 08:45 Speech Therapy Time Out: 09:05 Total Billed Time: 20 Billed Treatment Time [address] Dec 13, 2017 09:31
[2017-12-13] MEDS: ONDANSETRON 4 MG/2 ML (SDV) Z0FRAN IV PRN (09:38)
[2017-12-13] MEDS: fentaNYL INJECTION 100 MCG/2 ML AMP IVP PRN (10:38)
[2017-12-13 12:00] VITALS: BP 140/65
--- NOTE | 2017-12-13 12:04 | Cardiology Progress Note ---
Cardiology SOAP Progress Note Subjective: No cardiac complaints. Objective: I&O/Vital Signs Vital Sign - Last 12Hours 12/13/17 12/13/17 12/13/17 01:00 04:00 08:00 Temp 98.0 97.8 Pulse 105 101 114 Resp 16 18 B/P (MAP) 153/72 (99) 137/74 (95) Pulse Ox 96 96 O2 Delivery Room Air Room Air Intake and Output 12/13/17 00:00 Intake Total 170 ml Output Total 1000 ml Balance -830 ml Weight (Pounds): 180 Weight (Ounces): 5.0 Weight (Calculated Kilograms): 81.301921 Constitutional: appears stated age, other (noncommunicative but alert) Respiratory: No accessory muscle use, No respiratory distress, No chest tender , No chest expansion is symmetric, chest is bilaterally symmetric, No lungs clear to percussion, lungs clear to auscultation, No crackles, No rhonchi, No rales, No stridor, No wheezing, No pleural rub, No other Cardiovascular: No regular rate-rhythm, No irregularly irregular, No extra beats, No parasternal heave is noted, No JVD, No edema, No bradycardia, tachycardia, No point of maximal impulse, No cardiac thrills are palpable, S1 and S2, No gallop/S3, No gallop/S4, No diastolic murmur, No systolic murmur, No friction rub, No click, No other Gastrointestional: No tender, No soft, No round, No distended, No pulsatile mass, No organomegaly, No guarding, No rebound, No tenderness, No hernia, No mass, No audible bowel sounds, No abnormal bowel sounds, No abdominal bruits, No spleenomegaly, No other Extremities: pedal edema Neurologic/Psychiatric: alert, facial droop, disoriented x 3 Skin: No normal color, No warm/dry, No cyanosis, No cool, No diaphoresis, No damp, No ecchymosis, No jaundice, No mottled, No pallor, No rash, No tattoos/ piercings, No ulcerations, No rash on exposed areas, No ulcerations on exposed areas, No other Results/Procedures: Labs Laboratory Tests 12/12/17 15:40: Glucometer 209H 12/12/17 20:27: Glucometer 152H 12/13/17 05:33: Glucometer 161H 12/13/17 05:35: White Blood Count 10.8, Red Blood Count 3.63L, Hemoglobin 10.9L, Hematocrit 33L , Mean Corpuscular Volume 90, Mean Corpuscular Hemoglobin 30, Mean Corpuscular Hemoglobin Concent 34, Red Cell Distribution Width 15.9H, Platelet Count 360, Mean Platelet Volume 10.9H, Prothrombin Time 40.2H, INR Comment 4.2H, Sodium Level 141, Potassium Level 2.9L, Chloride Level 109H, Carbon Dioxide Level 24, Anion Gap 8, Blood Urea Nitrogen 10, Creatinine 0.71, Estimat Glomerular Filtration Rate > 60, BUN/Creatinine Ratio 14, Glucose Level 174H, Calcium Level 7.6L, Total Bilirubin 0.3, Aspartate Amino Transf (AST/SGOT) 42H, Alanine Aminotransferase (ALT/SGPT) 23, Alkaline Phosphatase 91, Total Protein 4.6L, Albumin 2.1L 12/13/17 11:01: Glucometer 184H Microbiology 12/11/17 Blood Culture - Preliminary, Resulted No growth 12/11/17 Urine Culture - Preliminary, Resulted A/P: Assessment/Dx: Altered mental status, UTI sepsis, Metabolic acidosis, Urolithiasis, Chronic kidney disease, Tachycardia, CVA, Lower extremity swelling. Plan: Cardiology was consulted for tachycardia. I reviewed her EKG and telemetry which shows tachycardia with atrial activity. Differential diagnosis includes sinus tachycardia versus right atrial tachycardia. I could not find any old EKGs so that I could compare P-wave morphology. However the tachycardia is regular and not atrial fibrillation. The patient is also on Coumadin and I am unsure about the indication. Not able to get any records. Patient is still in sinus tachycardia however heart rate is much better and is between 100-110. I spoke with one of the daughters who has power of assistant county attorney however she was unaware of history of any rhythm abnormalities. Also she thought Coumadin was for stroke. And that the patient did not have any previous cardiac history. The patient was on a beta david and calcium channel david as an outpatient. Both will be started. Coumadin has been held for possible urological procedure with Dr. Read. UTI sepsis treatment with IV fluids and antibiotics. Suspicion for pancreatitis. I will continue to follow. Thank you for your consultation. Please call me if you have any questions. Iza Jaramillo MD, FACP, FACC, FSCAI, FHRS, CCDS Interventional Cardiology Cardiac Electrophysiology Vascular Medicine and Endovascular Interventions Focused Exam Evaluation Lactate Level Laboratory Tests 12/11/17 11:56: Lactic Acid Level 2.82*H 12/11/17 16:35: Lactic Acid Level 2.36*H 12/12/17 08:51: Lactic Acid Level 0.89 Gregoria JARAMILLO MD Dec 13, 2017 12:04
--- NOTE | 2017-12-13 14:17 | Progress Note-Urology ---
Progress Note-Urology Progress Notes/Assess & Plan Progress/Assessment & Plan LOOKING AND DOING MUCH BETTER. ALL TEST NEGATIVES FOR DVT AND PE. ON ASA, WE WILL HOLD (OK WITH DR NUGENT). I HAD A LENGTHY DISCUSSION WITH HER AND HER DAUGHTER RE ESWL ON SATURDAY AND POSSIBLE RETROGRADE UROGRAM OR STENT. EXPECTATIONS, RISKS AND COMPLICATIONS FULL ADDRESSED. KEEP OFF COUMADIN AND FOLLOW HER INR. SATURDAY WE WILL OBTAIN CT AP AND KUB TO SEE WHERE THE STONE IS AT THAT TIME, ALSO CHECK PT AND INR, CONSENT FOR OR AND PREOP ORDERS AND HAVE ANESTHESIA SEE HER. Final Diagnosis LT URETERAL AN RENAL STONES EUSEBIA OSORIO MD Dec 13, 2017 2:17 pm
[2017-12-13 16:44] VITALS: BP 151/70
[2017-12-13 20:30] VITALS: BP 155/68
[2017-12-13] MEDS: ATORVASTATIN 10 MG (LIPITOR) TABLET PO SCH (22:41)
[2017-12-13 23:50] VITALS: BP 140/72
[2017-12-14] MEDS: NYSTATIN ORAL SUSP 5 ML UDC PO SCH ×4 (00:10→16:46)
[2017-12-14 03:21] VITALS: BP 137/67
[2017-12-14 05:21] LABS: BASOPHILS % (AUTO) 0 % (0-10); EOSINOPHILS # (AUTO) 0.7 10^3/uL (0.0-0.3); EOSINOPHILS % (AUTO) 7 % (0-10); HEMATOCRIT 30 % (35-52); HEMOGLOBIN 9.9 G/DL (11.5-16.0); LYMPHOCYTES # (AUTO) 2.1 X 10^3 (1.0-4.0); LYMPHOCYTES % (AUTO) 20 % (12-44); MEAN CORPUSCULAR HEMOGLOBIN 30 PG (25-34); MEAN CORPUSCULAR HGB CONC 33 G/DL (32-36); MEAN CORPUSCULAR VOLUME 90 FL (80-99); MEAN PLATELET VOLUME 10.6 FL (7.4-10.4); MONOCYTES # (AUTO) 1.1 X 10^3 (0.0-1.0); MONOCYTES % (AUTO) 10 % (0-12); NEUTROPHILS # (AUTO) 6.5 X 10^3 (1.8-7.8); NEUTROPHILS % (AUTO) 63 % (42-75); PLATELET COUNT 312 10^3/uL (130-400); RED BLOOD COUNT 3.31 10^6/uL (4.35-5.85); RED CELL DISTRIBUTION WIDTH 15.7 % (10.0-14.5); WHITE BLOOD COUNT 10.4 10^3/uL (4.3-11.0)
[2017-12-14] MEDS: inSUlin (REGULAR) HUMAN 1 UNIT/0.01 ML (CHARGE PER UNIT) SC SCH ×4 (05:25→21:34)
[2017-12-14 05:37] LABS: INR 4.3 (0.8-1.4); PROTHROMBIN TIME PATIENT 41.1 SEC (12.2-14.7)
[2017-12-14 05:43] LABS: ALANINE AMINOTRANSFERASE 26 U/L (0-55); ALKALINE PHOSPHATASE 88 U/L (40-136); BILIRUBIN,TOTAL 0.3 MG/DL (0.1-1.0); BUN/CREATININE RATIO 17; CALCIUM 7.7 MG/DL (8.5-10.1); CARBON DIOXIDE 24 MMOL/L (21-32); CHLORIDE 110 MMOL/L (98-107); GFR ESTIMATED > 60; GLUCOSE 175 MG/DL (70-105); POTASSIUM 3.3 MMOL/L (3.6-5.0); SODIUM 141 MMOL/L (135-145); TOTAL PROTEIN 4.4 GM/DL (6.4-8.2)
[2017-12-14] MEDS: PANTOPRAZOLE 20 MG TABLET (PROTONIX) PO SCH (06:44)
[2017-12-14] MEDS: FERROUS SULF 325 MG (IRON) TAB PO SCH (06:44)
[2017-12-14] MEDS: MAGNESIUM OXIDE (MAG-OX)400 MG TAB PO SCH (06:44)
[2017-12-14] MEDS: NS IV 1000 ML 1,000 ML IV SCH ×2 (06:44→21:33)
[2017-12-14 07:21] VITALS: BP 128/72
[2017-12-14] MEDS: LEVETIRACETAM 1,000 MG (KEPPRA) TABLET PO SCH ×2 (08:08→21:33)
[2017-12-14] MEDS: DILTIAZEM 180 MG (CARDIZEM CD) CAP PO SCH (08:08)
[2017-12-14] MEDS: LACTOBACILLUS Acidoph/Bulgar (LACTINEX/FLORANEX) TAB PO SCH (08:08)
[2017-12-14] MEDS: ACETAMINOPHEN 325 MG TABLET/CAPLET (TYLENOL) PO SCH ×3 (08:09→21:34)
[2017-12-14] MEDS: cefTRIAXone 1 GM/NS 100 ML IVPB IV SCH ×2 (08:09)
[2017-12-14 12:00] VITALS: BP 162/67
--- NOTE | 2017-12-14 12:18 | Progress Note-Standard ---
Standard Progress Note Progress Notes/Assess & Plan Date Seen 12/14/17 Time Seen by Provider: 10:45 Assess & Plan/Chief Complaint Per Dr Moreau: 12/13/17. Left ureteral stone. Patient opening eyes and talking this morning. Patient more alert. Left ureteral stone. UTI. Hypokalemia. Elevated INR to 4.2. Tachycardia resolving. Hypertension today. Patient improving Patient doing about the same very lethargic and sleeps most of the time I obtained DO NOT RESUSCITATE order so change that in the computer Remains on gentle IV fluids until she is able to eat and drink better but needs EGD with dilatation and daughter is agreeable for me to consult Dr. Valentine so that has been done and he will evaluate the need to do that whenever they decide. She lives at her remission in [place] and once to change to [place] for her care ultimately since it's too far to drive all the way to [place] from [place]. Patient appears to be very declined I reviewed the culture results and lab report INR remains high AFVSS, sleeping, daughter at bedside, no acute distress Regular rate and rhythm, clear to auscultation bilaterally no wheezing noted Trace edema lower extremities Laboratory Tests 12/14/17 04:50 Assessment: Altered mental status due to UTI Left ureteral stone urology to perform procedure to remove the stone on Saturday New onset dysphagia needs EGD with dilatation consulting Dr. Valentine UTI maintained on Rocephin Hypokalemia initiate supplement liquid since she is having dysphagia Coagulopathy elevated INR holding anticoagulation Tachycardia resolving. Hypertension Plan: Consult Dr. Valentine is appreciated to plan for EGD with presumed dilatation Maintain Rocephin per urine culture results Gentle IV fluids due to lethargy DO NOT RESUSCITATE very declined individual poor prognosis long-term resides in a shelter Labs Laboratory Tests 12/13/17 05:35 12/14/17 04:50 Focused Exam Evaluation Lactate Level Laboratory Tests 12/11/17 16:35: Lactic Acid Level 2.36*H 12/12/17 08:51: Lactic Acid Level 0.89 MITCHELL SHAH DO Dec 14, 2017 12:18
--- NOTE | 2017-12-14 12:52 | CONSULTATION REPORT ---
DATE OF SERVICE: 12/14/2017 ATTENDING PRIMARY CARE PHYSICIAN: Rohini Aclazar MD HISTORY OF PRESENT ILLNESS: The patient is a 77-year-old female with dysphagia as well as dark tarry stools. 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 Her daughter is accompanying her and they state that she has had some issues with dysphagia in the past requiring EGD and dilatation. She does not report any known history of peptic ulcer disease or gastroesophageal reflux disease. Due to her previous stroke, she is on Coumadin. She was admitted for dehydration and was found to have a significant urinary tract infection as well as a nephrolithiasis. PAST MEDICAL HISTORY: Left-sided CVA, hypertension, cataracts, history of pancreatitis, depression, renal insufficiency. PAST SURGICAL HISTORY: Cataract removal. ALLERGIES: PENICILLIN, CODEINE, MORPHINE and DARVOCET. MEDICATIONS: Atorvastatin 10 mg daily, bupropion 100 mg t.i.d., buspirone 5 mg b.i.d., cetirizine 10 mg daily, clonidine 0.1 mg p.r.n., diltiazem 180 mg daily, duloxetine 60 mg daily, gabapentin 300 mg q.i.d., levetiracetam 1000 mg b.i.d., magnesium daily, metformin 1000 mg b.i.d., metoprolol 25 mg daily, hydrocortisone 30 mg daily, Coumadin 3 mg 4 days a week and 4 mg 3 days a week. SOCIAL HISTORY: Previous smoker. Negative alcohol. FAMILY HISTORY: Noncontributory. VITAL SIGNS: Temperature 98.8, blood pressure 128/72, pulse 100, respirations 22, pulse ox 97% on room air. REVIEW OF SYSTEMS: This is a well-nourished female, who is awake and alert; however, does not verbalize well. She is not experiencing any shortness of breath or difficulty breathing. No chest pain, palpitations or diaphoresis. Dysphagia and difficulty swallowing, which is not a new issue and appears to have worsened. Dark tarry stools in the past several days. No fever or chills. No recent inadvertent weight loss. PHYSICAL EXAMINATION: CHEST: Has good breath sounds bilaterally clear. HEART: Regular, no murmurs. EXTREMITIES: +1/3 bilateral lower extremity edema. Negative Homans' sign. HEENT: No scleral icterus. NECK: No cervical lymphadenopathy. ABDOMEN: Soft, nontender, nondistended. No palpable masses. SKIN: Warm and dry. LABORATORY DATA: WBC 10.4, hemoglobin 9.9, hematocrit 30 and platelets 312. PT is 41.1 with an INR of 4.3. ASSESSMENT AND PLAN: A 77-year-old female with dysphagia and previous history of what sounds to be esophageal stricture as well as a chronic upper gastrointestinal bleed with dark tarry stools. She is currently hemodynamically stable with stable hemoglobin as well. She is anticoagulated and supratherapeutic with an INR of 4.3. We will proceed with an EGD as well as possible dilatation; however, we will await closer resolution of the INR. She is scheduled for a cystoscopy and renal stone extraction later this week and we will try to coordinate EGD with possible dilatation at the same time. Job ID: [id number] DocumentID: [id number] Dictated Date: 12/14/2017 12:24:10 Spa Manager Date: 12/14/2017 12:51:13 Dictated By: JOSE JUAN FAUST MD [facility]
--- NOTE | 2017-12-14 13:52 | Cardiology Progress Note ---
Cardiology SOAP Progress Note Subjective: Significantly improved mental status. Denies any cardiac complaints. Objective: I&O/Vital Signs Vital Sign - Last 12Hours 12/14/17 12/14/17 12/14/17 12/14/17 12:00 13:00 15:57 19:00 Temp 98.3 97.7 Pulse 100 96 82 91 Resp 20 16 B/P (MAP) 162/67 (98) 136/63 (87) Pulse Ox 98 96 O2 Delivery Room Air Room Air 12/14/17 20:00 Temp 97.5 Pulse 97 Resp 16 B/P (MAP) 140/64 (89) Pulse Ox 98 O2 Delivery Room Air Intake and Output 12/14/17 00:00 Intake Total 1110 ml Output Total 650 ml Balance 460 ml Weight (Pounds): 180 Weight (Ounces): 5.0 Weight (Calculated Kilograms): 81.165220 Constitutional: appears stated age, other (noncommunicative but alert) Respiratory: No accessory muscle use, No respiratory distress, No chest tender , No chest expansion is symmetric, chest is bilaterally symmetric, No lungs clear to percussion, lungs clear to auscultation, No crackles, No rhonchi, No rales, No stridor, No wheezing, No pleural rub, No other Cardiovascular: regular rate-rhythm, No irregularly irregular, No extra beats, No parasternal heave is noted, No JVD, No edema, No bradycardia, tachycardia, No point of maximal impulse, No cardiac thrills are palpable, S1 and S2, No gallop/S3, No gallop/S4, No diastolic murmur, No systolic murmur, No friction rub, No click, No other Gastrointestional: No tender, No soft, No round, No distended, No pulsatile mass, No organomegaly, No guarding, No rebound, No tenderness, No hernia, No mass, No audible bowel sounds, No abnormal bowel sounds, No abdominal bruits, No spleenomegaly, No other Extremities: pedal edema Neurologic/Psychiatric: alert, facial droop, disoriented x 3 Skin: No normal color, No warm/dry, No cyanosis, No cool, No diaphoresis, No damp, No ecchymosis, No jaundice, No mottled, No pallor, No rash, No tattoos/ piercings, No ulcerations, No rash on exposed areas, No ulcerations on exposed areas, No other Results/Procedures: Labs Laboratory Tests 12/14/17 04:50: White Blood Count 10.4, Red Blood Count 3.31L, Hemoglobin 9.9L, Hematocrit 30L, Mean Corpuscular Volume 90, Mean Corpuscular Hemoglobin 30, Mean Corpuscular Hemoglobin Concent 33, Red Cell Distribution Width 15.7H, Platelet Count 312, Mean Platelet Volume 10.6H, Neutrophils (%) (Auto) 63, Lymphocytes (%) (Auto) 20 , Monocytes (%) (Auto) 10, Eosinophils (%) (Auto) 7, Basophils (%) (Auto) 0, Neutrophils # (Auto) 6.5, Lymphocytes # (Auto) 2.1, Monocytes # (Auto) 1.1H, Eosinophils # (Auto) 0.7H, Basophils # (Auto) 0.0, Prothrombin Time 41.1H, INR Comment 4.3H, Sodium Level 141, Potassium Level 3.3L, Chloride Level 110H, Carbon Dioxide Level 24, Anion Gap 7, Blood Urea Nitrogen 12, Creatinine 0.70, Estimat Glomerular Filtration Rate > 60, BUN/Creatinine Ratio 17, Glucose Level 175H, Calcium Level 7.7L, Total Bilirubin 0.3, Aspartate Amino Transf (AST/SGOT ) 37H, Alanine Aminotransferase (ALT/SGPT) 26, Alkaline Phosphatase 88, Total Protein 4.4L, Albumin 2.0L 12/14/17 05:12: Glucometer 162H 12/14/17 10:59: Glucometer 224H 12/14/17 15:23: Glucometer 237H 12/14/17 21:21: Microbiology 12/11/17 Blood Culture - Preliminary, Resulted No growth 12/11/17 Urine Culture - Preliminary, Resulted Probable E.coli A/P: Assessment/Dx: Altered mental status, improved UTI sepsis, Metabolic acidosis, Urolithiasis, Chronic kidney disease, Tachycardia, improved CVA, Lower extremity swelling. Plan: Cardiology was consulted for tachycardia. I reviewed her EKG and telemetry which shows tachycardia with atrial activity. Differential diagnosis includes sinus tachycardia versus right atrial tachycardia. I could not find any old EKGs so that I could compare P-wave morphology. However the tachycardia is regular and not atrial fibrillation. The patient is also on Coumadin and I am unsure about the indication. Not able to get any records. Patient is still in sinus tachycardia however heart rate is much better and is between 100-110. I spoke with one of the daughters who has power of managing attorney however she was unaware of history of any rhythm abnormalities. Also she thought Coumadin was for stroke. And that the patient did not have any previous cardiac history. The patient was on a beta david and calcium channel david as an outpatient. Both will be started. Coumadin has been held for possible urological procedure with Dr. Read. Supratherapeutic INR: Coumadin has been held. UTI sepsis treatment with IV fluids and antibiotics. Suspicion for pancreatitis on CT scan however blood work is negative. I will continue to follow. Thank you for your consultation. Please call me if you have any questions. Iza Jaramillo MD, FACP, FACC, FSCAI, FHRS, CCDS Interventional Cardiology Cardiac Electrophysiology Vascular Medicine and Endovascular Interventions Focused Exam Evaluation Lactate Level Laboratory Tests 12/12/17 08:51: Lactic Acid Level 0.89 Gregoria JARAMILLO MD Dec 14, 2017 1:52 pm
[2017-12-14] MEDS: meTOprolol 5 MG/5 ML (LOPRESSOR) VIAL IV PRN (14:28)
[2017-12-14 15:57] VITALS: BP 136/63
[2017-12-14] MEDS: KCL 20 MEQ POWDER FOR ORAL SOLUTION PO SCH (16:46)
[2017-12-14 20:00] VITALS: BP 140/64
[2017-12-14] MEDS: ATORVASTATIN 10 MG (LIPITOR) TABLET PO SCH (21:33)
[2017-12-14 23:36] VITALS: BP 132/66
[2017-12-15] MEDS: NYSTATIN ORAL SUSP 5 ML UDC PO SCH ×4 (00:06→17:20)
[2017-12-15 03:48] VITALS: BP 145/65
[2017-12-15 05:14] LABS: BASOPHILS % (AUTO) 0 % (0-10); EOSINOPHILS # (AUTO) 0.7 10^3/uL (0.0-0.3); EOSINOPHILS % (AUTO) 8 % (0-10); LYMPHOCYTES % (AUTO) 24 % (12-44); MEAN CORPUSCULAR HGB CONC 33 G/DL (32-36); MEAN CORPUSCULAR VOLUME 90 FL (80-99); MEAN PLATELET VOLUME 10.3 FL (7.4-10.4); MONOCYTES # (AUTO) 0.9 X 10^3 (0.0-1.0); MONOCYTES % (AUTO) 10 % (0-12); NEUTROPHILS # (AUTO) 4.8 X 10^3 (1.8-7.8); NEUTROPHILS % (AUTO) 57 % (42-75); RED CELL DISTRIBUTION WIDTH 15.5 % (10.0-14.5)
[2017-12-15 05:16] LABS: WHITE BLOOD COUNT 9.2 10^3/uL (4.3-11.0)
[2017-12-15 05:17] LABS: HEMATOCRIT 32 % (35-52); HEMOGLOBIN 10.5 G/DL (11.5-16.0); MEAN CORPUSCULAR HEMOGLOBIN 30 PG (25-34); RED BLOOD COUNT 3.54 10^6/uL (4.35-5.85)
[2017-12-15 05:18] LABS: PLATELET COUNT 227 10^3/uL (130-400)
[2017-12-15 05:28] LABS: INR 3.5 (0.8-1.4); PROTHROMBIN TIME PATIENT 34.5 SEC (12.2-14.7)
[2017-12-15 05:42] LABS: ALANINE AMINOTRANSFERASE 30 U/L (0-55); ALBUMIN 2.2 GM/DL (3.2-4.5); ALKALINE PHOSPHATASE 91 U/L (40-136); BILIRUBIN,TOTAL 0.3 MG/DL (0.1-1.0); BUN/CREATININE RATIO 15; CALCIUM 7.9 MG/DL (8.5-10.1); CARBON DIOXIDE 23 MMOL/L (21-32); CHLORIDE 109 MMOL/L (98-107); CREATININE SERUM 0.67 MG/DL (0.60-1.30); GFR ESTIMATED > 60; GLUCOSE 120 MG/DL (70-105); POTASSIUM 3.3 MMOL/L (3.6-5.0); SODIUM 140 MMOL/L (135-145); TOTAL PROTEIN 4.8 GM/DL (6.4-8.2)
[2017-12-15] MEDS: inSUlin (REGULAR) HUMAN 1 UNIT/0.01 ML (CHARGE PER UNIT) SC SCH ×4 (05:43→21:52)
[2017-12-15] MEDS: PANTOPRAZOLE 20 MG TABLET (PROTONIX) PO SCH (06:32)
[2017-12-15] MEDS: MAGNESIUM OXIDE (MAG-OX)400 MG TAB PO SCH (06:32)
[2017-12-15] MEDS: KCL 20 MEQ POWDER FOR ORAL SOLUTION PO SCH ×2 (06:32→17:21)
[2017-12-15] MEDS: FERROUS SULF 325 MG (IRON) TAB PO SCH (06:32)
[2017-12-15 08:00] VITALS: BP 137/65
[2017-12-15] MEDS ORDERED: CYANOCOBALAMIN INJ 1000 MCG/ML SQ SCH (09:00)
[2017-12-15] MEDS: LEVETIRACETAM 1,000 MG (KEPPRA) TABLET PO SCH ×2 (09:38→21:51)
[2017-12-15] MEDS: cefTRIAXone 1 GM/NS 100 ML IVPB IV SCH ×2 (09:38)
[2017-12-15] MEDS: LACTOBACILLUS Acidoph/Bulgar (LACTINEX/FLORANEX) TAB PO SCH (09:38)
[2017-12-15] MEDS: DILTIAZEM 180 MG (CARDIZEM CD) CAP PO SCH (09:38)
[2017-12-15] MEDS: ACETAMINOPHEN 325 MG TABLET/CAPLET (TYLENOL) PO SCH ×3 (09:45→21:50)
--- NOTE | 2017-12-15 10:07 | Progress Note (SOAP) ---
Subjective Date Seen by Provider: Dec 15, 2017 Time Seen by Provider: 09:20 Subjective/Events-last exam Patient seen with Dr. Valentine. Patient confused. Denied any pain as well as no N/ V. Patient poor historian. Objective Exam Vital Signs Date Time Temp Pulse Resp B/P (MAP) Pulse Ox O2 Delivery O2 Flow Rate FiO2 12/15/17 07:00 109 12/15/17 03:48 99.4 104 16 145/65 (91) 99 Room Air 12/15/17 01:00 101 12/14/17 23:36 98.8 107 14 132/66 (88) 97 Room Air 12/14/17 20:00 97.5 97 16 140/64 (89) 98 Room Air 12/14/17 20:00 97 Room Air 12/14/17 19:00 91 12/14/17 15:57 97.7 82 16 136/63 (87) 96 Room Air 12/14/17 13:00 96 12/14/17 12:00 98.3 100 20 162/67 (98) 98 Room Air I & O 12/15/17 07:00 Intake Total 530 ml Output Total 2050 ml Balance -1520 ml Capillary Refill : Less Than 3 SecondsLess Than 3 Seconds General Appearance: No Apparent Distress, WD/WN HEENT: PERRL/EOMI Neck: Full Range of Motion, Normal Inspection, Non Tender, Supple Respiratory: Lungs Clear, Normal Breath Sounds, No Accessory Muscle Use, No Respiratory Distress Cardiovascular: Regular Rate, Rhythm, Normal Peripheral Pulses Gastrointestinal: normal bowel sounds, soft, tenderness (epigastric region to moderate palpation) Extremity: Normal Capillary Refill, Swelling Neurologic/Psychiatric: Alert, Other (Patient confused) Skin: Normal Color, Warm/Dry Results Lab Laboratory Tests 12/14/17 10:59: Glucometer 224H 12/14/17 15:23: Glucometer 237H 12/14/17 21:21: Glucometer 143H 12/15/17 04:45: White Blood Count 9.2, Red Blood Count 3.54L, Hemoglobin 10.5L, Hematocrit 32L, Mean Corpuscular Volume 90, Mean Corpuscular Hemoglobin 30, Mean Corpuscular Hemoglobin Concent 33, Red Cell Distribution Width 15.5H, Platelet Count 227, Mean Platelet Volume 10.3, Neutrophils (%) (Auto) 57, Lymphocytes (%) (Auto) 24 , Monocytes (%) (Auto) 10, Eosinophils (%) (Auto) 8, Basophils (%) (Auto) 0, Neutrophils # (Auto) 4.8, Lymphocytes # (Auto) 2.0, Monocytes # (Auto) 0.9, Eosinophils # (Auto) 0.7H, Basophils # (Auto) 0.0, Prothrombin Time 34.5H, INR Comment 3.5H, Sodium Level 140, Potassium Level 3.3L, Chloride Level 109H, Carbon Dioxide Level 23, Anion Gap 8, Blood Urea Nitrogen 10, Creatinine 0.67, Estimat Glomerular Filtration Rate > 60, BUN/Creatinine Ratio 15, Glucose Level 120H, Calcium Level 7.9L, Total Bilirubin 0.3, Aspartate Amino Transf (AST/SGOT ) 46H, Alanine Aminotransferase (ALT/SGPT) 30, Alkaline Phosphatase 91, Total Protein 4.8L, Albumin 2.2L 12/15/17 05:28: Glucometer 107 Microbiology 12/11/17 Blood Culture - Preliminary, Resulted No growth 12/11/17 Urine Culture - Final, Complete Escherichia coli Assessment/Plan Assessment/Plan Assess & Plan/Chief Complaint A 77-year-old female with dysphagia and previous history of what sounds to be esophageal stricture as well as a chronic upper gastrointestinal bleed with dark tarry stools. Labs stable, VSS. We will proceed with an EGD as well as possible dilatation; however, we will await closer resolution of the INR. She is scheduled for a cystoscopy and renal stone extraction later this week and we will try to coordinate EGD with possible dilatation at the same time. Continue with medical management at this time. Clinical Quality Measures DVT/VTE Risk/Contraindication: Risk Factor Score Per Nursin RFS Level Per Nursing on Admit: 4+=Very High Contraindications-Pharm: Other *list below* ILANA HUNTER APRN Dec 15, 2017 10:07 am
[2017-12-15] MEDS: NS IV 1000 ML 1,000 ML IV SCH (10:21)
--- NOTE | 2017-12-15 10:30 | Cardiology Progress Note ---
Cardiology SOAP Progress Note Subjective: Improved significantly. Objective: I&O/Vital Signs Vital Sign - Last 12Hours 12/15/17 12/15/17 12/15/17 12:00 16:00 20:00 Temp 98.9 98.2 99.3 Pulse 97 89 99 Resp 20 16 16 B/P (MAP) 129/73 (91) 142/67 (92) 142/68 (92) Pulse Ox 98 99 98 O2 Delivery Room Air Room Air Room Air Intake and Output 12/15/17 00:00 Intake Total 480 ml Output Total 950 ml Balance -470 ml Weight (Pounds): 180 Weight (Ounces): 5.0 Weight (Calculated Kilograms): 81.539499 Constitutional: appears stated age, other (noncommunicative but alert) Respiratory: No accessory muscle use, No respiratory distress, No chest tender , No chest expansion is symmetric, chest is bilaterally symmetric, No lungs clear to percussion, lungs clear to auscultation, No crackles, No rhonchi, No rales, No stridor, No wheezing, No pleural rub, No other Cardiovascular: regular rate-rhythm, No irregularly irregular, No extra beats, No parasternal heave is noted, No JVD, No edema, No bradycardia, tachycardia, No point of maximal impulse, No cardiac thrills are palpable, S1 and S2, No gallop/S3, No gallop/S4, No diastolic murmur, No systolic murmur, No friction rub, No click, No other Gastrointestional: No tender, No soft, No round, No distended, No pulsatile mass, No organomegaly, No guarding, No rebound, No tenderness, No hernia, No mass, No audible bowel sounds, No abnormal bowel sounds, No abdominal bruits, No spleenomegaly, No other Extremities: pedal edema Neurologic/Psychiatric: alert, facial droop Skin: No normal color, No warm/dry, No cyanosis, No cool, No diaphoresis, No damp, No ecchymosis, No jaundice, No mottled, No pallor, No rash, No tattoos/ piercings, No ulcerations, No rash on exposed areas, No ulcerations on exposed areas, No other Results/Procedures: Labs Laboratory Tests 12/14/17 21:21: Glucometer 143H 12/15/17 04:45: White Blood Count 9.2, Red Blood Count 3.54L, Hemoglobin 10.5L, Hematocrit 32L, Mean Corpuscular Volume 90, Mean Corpuscular Hemoglobin 30, Mean Corpuscular Hemoglobin Concent 33, Red Cell Distribution Width 15.5H, Platelet Count 227, Mean Platelet Volume 10.3, Neutrophils (%) (Auto) 57, Lymphocytes (%) (Auto) 24 , Monocytes (%) (Auto) 10, Eosinophils (%) (Auto) 8, Basophils (%) (Auto) 0, Neutrophils # (Auto) 4.8, Lymphocytes # (Auto) 2.0, Monocytes # (Auto) 0.9, Eosinophils # (Auto) 0.7H, Basophils # (Auto) 0.0, Prothrombin Time 34.5H, INR Comment 3.5H, Sodium Level 140, Potassium Level 3.3L, Chloride Level 109H, Carbon Dioxide Level 23, Anion Gap 8, Blood Urea Nitrogen 10, Creatinine 0.67, Estimat Glomerular Filtration Rate > 60, BUN/Creatinine Ratio 15, Glucose Level 120H, Calcium Level 7.9L, Total Bilirubin 0.3, Aspartate Amino Transf (AST/SGOT ) 46H, Alanine Aminotransferase (ALT/SGPT) 30, Alkaline Phosphatase 91, Total Protein 4.8L, Albumin 2.2L 12/15/17 05:28: Glucometer 107 12/15/17 11:02: Glucometer 196H 12/15/17 12:25: Stool Occult Blood Immunoassay POSITIVEH 12/15/17 15:22: Glucometer 164H Microbiology 12/11/17 Blood Culture - Preliminary, Resulted No growth 12/11/17 Urine Culture - Final, Complete Escherichia coli A/P: Assessment/Dx: Altered mental status, improved UTI sepsis, Metabolic acidosis, Urolithiasis, Chronic kidney disease, Tachycardia, improved CVA, Lower extremity swelling. Plan: Cardiology was consulted for tachycardia. Likely sinus tachycardia in response to UTI sepsis. Patient is still in sinus tachycardia however heart rate is much better and is between 100-110. I spoke with one of the daughters who has power of electronics technician however she was unaware of history of any rhythm abnormalities. Also she thought Coumadin was for stroke. And that the patient did not have any previous cardiac history. Therefore, in short, I am unaware of the indication of coumadin in this patient and will leave it upto the her PCP to decide whether she needs to continue Coumadin or not. The patient was on a beta david and calcium channel david as an outpatient. Both will be started. Coumadin has been held for possible urological procedure with Dr. Read. Supratherapeutic INR: Coumadin has been held. UTI sepsis treatment with IV fluids and antibiotics. Suspicion for pancreatitis on CT scan however blood work is negative. I will continue to follow. Thank you for your consultation. Please call me if you have any questions. Iza Jaramillo MD, FACP, FACC, FSCAI, FHRS, CCDS Interventional Cardiology Cardiac Electrophysiology Vascular Medicine and Endovascular Interventions Gregoria JARAMILLO MD Dec 15, 2017 10:30 am
[2017-12-15 12:00] VITALS: BP 129/73
--- NOTE | 2017-12-15 12:50 | Progress Note-Standard ---
Standard Progress Note Progress Notes/Assess & Plan Date Seen 12/15/17 Time Seen by Provider: 11:30 Assess & Plan/Chief Complaint Having bloody stools but subtle but will send for hemoccult to confirm and document Updated Dr Valentine and he cannot do EGD w/dilation until INR more reasonable. Pt has dysphagia and cannot eat much so unsure how she can go back to NH if she can't maintain PO intake so will leave that for PCP to discuss regarding the plan No pain is reported Checked meds and labs AFVSS, awake more alert, demented, daughter at bedside, no acute distress Regular rate and rhythm, clear to auscultation bilaterally no wheezing noted Trace edema lower extremities Laboratory Tests 12/15/17 04:45 Assessment: Altered mental status due to UTI but baseline dementia Left ureteral stone urology to perform procedure to remove the stone on Saturday New onset but severe dysphagia needs EGD with dilatation consulting Dr. Valentine but he can't do that sooner than Saturday due to INR elevation due to high risk for bleeding UTI maintained on Rocephin Hypokalemia initiate supplement liquid since she is having dysphagia Coagulopathy elevated INR holding anticoagulation INR 3.5 today Tachycardia resolving. Hypertension Mild melena but stable H/H Plan: Consult Dr. Valentine is appreciated to plan for EGD with presumed dilatation that will be done Saturday Maintain Rocephin per urine culture results Gentle IV fluids due to lethargy DO NOT RESUSCITATE very declined individual poor prognosis long-term resides in a half-way DC Tely Complex case Labs Laboratory Tests 12/14/17 04:50 12/15/17 04:45 MITCHELL SHAH DO Dec 15, 2017 12:50
[2017-12-15 16:00] VITALS: BP 142/67
[2017-12-15 20:00] VITALS: BP 142/68
[2017-12-15] MEDS: ATORVASTATIN 10 MG (LIPITOR) TABLET PO SCH (21:50)
[2017-12-15] MEDS: meTOprolol TARTRATE 25 MG (LOPRESSOR) TABLET PO SCH (21:50)
[2017-12-16] VITALS (7 sets, daily range): BP systolic 130–179; BP diastolic 63–83
[2017-12-16] MEDS: NYSTATIN ORAL SUSP 5 ML UDC PO SCH ×5 (01:01→23:46)
[2017-12-16] MEDS: NS IV 1000 ML 1,000 ML IV SCH ×2 (01:58→16:03)
[2017-12-16 06:26] LABS: BASOPHILS % (AUTO) 0 % (0-10); EOSINOPHILS # (AUTO) 0.7 10^3/uL (0.0-0.3); EOSINOPHILS % (AUTO) 8 % (0-10); HEMATOCRIT 30 % (35-52); LYMPHOCYTES % (AUTO) 24 % (12-44); MEAN CORPUSCULAR HEMOGLOBIN 30 PG (25-34); MEAN CORPUSCULAR HGB CONC 33 G/DL (32-36); MEAN CORPUSCULAR VOLUME 90 FL (80-99); MEAN PLATELET VOLUME 10.6 FL (7.4-10.4); MONOCYTES # (AUTO) 0.8 X 10^3 (0.0-1.0); MONOCYTES % (AUTO) 9 % (0-12); NEUTROPHILS # (AUTO) 4.7 X 10^3 (1.8-7.8); NEUTROPHILS % (AUTO) 58 % (42-75); PLATELET COUNT 375 10^3/uL (130-400); RED BLOOD COUNT 3.35 10^6/uL (4.35-5.85); RED CELL DISTRIBUTION WIDTH 15.5 % (10.0-14.5); WHITE BLOOD COUNT 8.1 10^3/uL (4.3-11.0)
[2017-12-16] MEDS: FERROUS SULF 325 MG (IRON) TAB PO SCH (06:30)
[2017-12-16] MEDS: PANTOPRAZOLE 20 MG TABLET (PROTONIX) PO SCH (06:30)
[2017-12-16] MEDS: MAGNESIUM OXIDE (MAG-OX)400 MG TAB PO SCH (06:30)
[2017-12-16] MEDS: inSUlin (REGULAR) HUMAN 1 UNIT/0.01 ML (CHARGE PER UNIT) SC SCH ×4 (06:32→22:14)
[2017-12-16 06:36] LABS: INR 2.4 (0.8-1.4); PROTHROMBIN TIME PATIENT 25.9 SEC (12.2-14.7)
[2017-12-16] MEDS: KCL 20 MEQ POWDER FOR ORAL SOLUTION PO SCH ×2 (06:45→16:07)
[2017-12-16 06:48] LABS: ALANINE AMINOTRANSFERASE 26 U/L (0-55); ALBUMIN 2.1 GM/DL (3.2-4.5); ALKALINE PHOSPHATASE 93 U/L (40-136); BILIRUBIN,TOTAL 0.3 MG/DL (0.1-1.0); BUN/CREATININE RATIO 10; CARBON DIOXIDE 26 MMOL/L (21-32); CHLORIDE 107 MMOL/L (98-107); CREATININE SERUM 0.71 MG/DL (0.60-1.30); GFR ESTIMATED > 60; GLUCOSE 146 MG/DL (70-105); POTASSIUM 3.4 MMOL/L (3.6-5.0); SODIUM 141 MMOL/L (135-145); TOTAL PROTEIN 4.5 GM/DL (6.4-8.2)
--- NOTE | 2017-12-16 08:12 | Progress Note ---
Subjective Date Seen by Provider: Dec 16, 2017 Time Seen by Provider: 08:10 Subjective/Events-last exam PT GROGGY - UNABLE TO AROUSE TO ASK PT QUESTIONS, MONITOR SYMPTOMS - CONTINUE WITH FLUIDS. Review of Systems General: Fatigue HEENT: Dysphasia Pulmonary: No Dyspnea, No Cough Gastrointestinal: No: Nausea, Abdominal Pain Neurological: Weakness, Confusion Objective Exam Last Set of Vital Signs Vital Signs Date Time Temp Pulse Resp B/P (MAP) Pulse Ox O2 Delivery O2 Flow Rate FiO2 12/16/17 03:55 97.7 79 18 142/66 (91) 97 Room Air Capillary Refill : Less Than 3 SecondsLess Than 3 Seconds I&O Intake and Output 12/16/17 00:00 Intake Total 850 ml Output Total 3000 ml Balance -2150 ml Intake Oral 850 ml Output Urine Total 3000 ml # Bowel Movements 2 General: Other (GROGGY) HEENT: Atraumatic Neck: Supple Lungs: Clear to Auscultation Heart: Regular Rate Abdomen: Normal Bowel Sounds, Soft Extremities: No Clubbing, No Cyanosis Psych/Mental Status: Other (GROGGY) Results Lab Laboratory Tests 12/15/17 11:02: Glucometer 196H 12/15/17 12:25: Stool Occult Blood Immunoassay POSITIVEH 12/15/17 15:22: Glucometer 164H 12/15/17 21:00: Glucometer 162H 12/16/17 05:23: White Blood Count 8.1, Red Blood Count 3.35L, Hemoglobin 10.0L, Hematocrit 30L, Mean Corpuscular Volume 90, Mean Corpuscular Hemoglobin 30, Mean Corpuscular Hemoglobin Concent 33, Red Cell Distribution Width 15.5H, Platelet Count 375, Mean Platelet Volume 10.6H, Neutrophils (%) (Auto) 58, Lymphocytes (%) (Auto) 24 , Monocytes (%) (Auto) 9, Eosinophils (%) (Auto) 8, Basophils (%) (Auto) 0, Neutrophils # (Auto) 4.7, Lymphocytes # (Auto) 2.0, Monocytes # (Auto) 0.8, Eosinophils # (Auto) 0.7H, Basophils # (Auto) 0.0, Prothrombin Time 25.9H, INR Comment 2.4H, Sodium Level 141, Potassium Level 3.4L, Chloride Level 107, Carbon Dioxide Level 26, Anion Gap 8, Blood Urea Nitrogen 7, Creatinine 0.71, Estimat Glomerular Filtration Rate > 60, BUN/Creatinine Ratio 10, Glucose Level 146H, Calcium Level 8.0L, Total Bilirubin 0.3, Aspartate Amino Transf (AST/SGOT ) 34, Alanine Aminotransferase (ALT/SGPT) 26, Alkaline Phosphatase 93, Total Protein 4.5L, Albumin 2.1L 12/16/17 05:45: Glucometer 118H Microbiology 12/11/17 Blood Culture - Preliminary, Resulted No growth 12/11/17 Urine Culture - Final, Complete Escherichia coli Assessment/Plan Assessment/Plan Assess & Plan/Chief Complaint E.COLI URINARY TRACT INFECTION DYSPHAGIA URETERAL STONE HEMOCCULT POSITIVE STOOL ELEVATED INR CONFUSION DEMENTIA ANEMIA PANCREATIC LESION E.COLI URINARY TRACT INFECTION - ON IV ANTIBIOTICS, CONTINUE WITH CURRENT REGIMEN. DYSPHAGIA - WITH GI BLEED - HEMOCCULT POSITIVE STOOL - DR. FAUST TO PERFORM EGD URETERAL STONE - WAITING ON LITHOTRIPSY/TREATMENT PER DR. OSORIO ELEVATED INR - HOLDING COUMADIN CONFUSION AND DEMENTIA - STABLE ANEMIA - STABILIZED - MONITOR H AND H. PANCREATIC LESION - MONITOR - WILL HAVE TO REPEAT IMAGING IN THE NEXT FEW WEEKS AFTER ALLOWING FOR RESOLUTION OF POSSIBLE INFLAMMATION. Clinical Quality Measures DVT/VTE Risk/Contraindication: Risk Factor Score Per Nursin RFS Level Per Nursing on Admit: 4+=Very High Contraindications-Pharm: Other *list below* RAJAT DE LOS SANTOS MD Dec 16, 2017 08:12
[2017-12-16] MEDS: cefTRIAXone 1 GM/NS 100 ML IVPB IV SCH ×2 (08:47)
[2017-12-16] MEDS: LACTOBACILLUS Acidoph/Bulgar (LACTINEX/FLORANEX) TAB PO SCH (08:48)
[2017-12-16] MEDS: ACETAMINOPHEN 325 MG TABLET/CAPLET (TYLENOL) PO SCH ×3 (08:48→22:14)
[2017-12-16] MEDS: meTOprolol TARTRATE 25 MG (LOPRESSOR) TABLET PO SCH ×2 (08:48→22:14)
[2017-12-16] MEDS: LEVETIRACETAM 1,000 MG (KEPPRA) TABLET PO SCH ×2 (08:48→22:14)
[2017-12-16] MEDS: DILTIAZEM 180 MG (CARDIZEM CD) CAP PO SCH ×2 (08:48→16:21)
--- NOTE | 2017-12-16 09:13 | Progress Note-Urology ---
Progress Note-Urology Progress Notes/Assess & Plan Progress/Assessment & Plan INR 2.4 THIS AM. PLAN RECHECK TOMORROW. TODAY WE WILL GET CT AND KUB TO CHECK STATUS OF THE STONE. ALSO LABS. HAVE ANESTHESIA SEE PATIENT. IF ALL WELL BY SATURDAY PROCEED WITH LEFT ESWL, POSSIBLE CYSTOSCOPY, RETROGRADE UROGRAM, URETEROSCOPY WITH STONE LITHOTRIPSY, BASKET, STENT OR LITHOTOMY Final Diagnosis LT URETERAL AND RENAL STONES EUSEBIA OSORIO MD Dec 16, 2017 9:13 am
--- NOTE | 2017-12-16 10:02 | Diagnostic Imaging Report ---
PROCEDURE: CT urinary tract, rule out kidney stone. TECHNIQUE: Multiple contiguous axial images were obtained through the abdomen and pelvis without the use of intravenous contrast. INDICATION: Left-sided abdominal pain. History of kidney stones. COMPARISON: 12/11/2017. FINDINGS: Included portions of the lung bases are clear. Note is made of calcified coronary atherosclerosis. CT abdomen: Since previous exam, there has been interval migration of left ureteral calculus in the distal left ureter. Stone measures approximately 5-6 mm in diameter. There is trace proximal hydroureteronephrosis. Multiple additional nonobstructive left renal calculi are also noted. No renal or ureteral calculi are seen on the right. Additionally, there is no hydroureteronephrosis or other evidence of obstruction on the right. Liver again demonstrates geographic areas of decreased attenuation consistent with hepatic steatosis. The spleen and adrenal glands have an unremarkable noncontrast CT appearance. There is persistent abnormal ill-defined fullness about the pancreatic head and proximal body. There is no loculated fluid collection, free fluid, nor free air within the abdomen. Small bowel loops are nondistended. There is colonic diverticulosis, but no CT evidence of acute diverticulitis. Normal appendix cannot be adequately identified, but there is no pericecal inflammation. No abnormal mesenteric or retroperitoneal adenopathy is seen. There is mild calcified aortic and arterial atherosclerosis. Postsurgical changes of previous ventral hernia repair are noted. Bony structures show no acute abnormalities. CT pelvis: Paredes catheter is present within urinary bladder. Urinary bladder is decompressed. There is no loculated fluid collection, free fluid, nor free air within the pelvis. No abnormal lymph nodes are seen. Bony structures show nonacute fracture of the proximal left femur. Again, there is a distal left ureteral calculus. IMPRESSION: 1. Interval migration of previously described left ureteral calculus into the distal left ureter. There is trace proximal hydroureteronephrosis. 2. Multiple additional nonobstructive left renal calculi. 3. Persistent abnormal fullness about the head and proximal body of the pancreas. Correlation for acute pancreatitis is recommended. Underlying pancreatic mass cannot be entirely excluded given the noncontrast nature of the exam. 4. Geographic hepatic steatosis. 5. Colonic diverticulosis, but no CT evidence of acute diverticulitis. Dictated by: Dictated on workstation # [id number]
--- NOTE | 2017-12-16 10:10 | Diagnostic Imaging Report ---
INDICATION: Left ureteral and renal stones. Time of exam 10:08 AM Correlation is made with prior study from 12/12/2017. Several calcific densities overlie the lower pole and midportion left kidney consistent with renal calculi. This was seen on recent CT. Calcific densities overlie the right kidney, however, no definite calculi on recent CT were visualized. This may represent and bowel contents. Post surgical changes in the lower lumbar spine are noted. The bowel gas pattern is unremarkable. There are surgical clips right upper quadrant. Chronic appearing ununited left hip fracture is seen. Imaging through the pelvis does show numerous pelvic calcifications. The majority of these likely represent phleboliths however recent CT did show an approximately 6 mm calculus in the distal left ureter proximal to the UVJ. One of these calcifications likely represent the distal left ureteric calculus. No other abnormalities are seen. IMPRESSION: Left renal calculi and distal left ureteral calculus. No other significant abnormality is seen. Dictated by: Dictated on workstation # [id number]
--- NOTE | 2017-12-16 10:10 | Speech Therapy Progress Note ---
Therapy Progress Note Speech pathology attempted swallow re-evaluation on this date. The patient was laying in bed, sleeping upon entrance. Per RN, the patient was not alert enough to receive morning medication. The Speech pathology attempted to rouse patient to an appropriate alertness level for PO, however, she did not wake. The clinician will re-attempt at a later time, as appropriate. SHEN DUFFY Dec 16, 2017 10:10
--- NOTE | 2017-12-16 12:34 | Cardiology Progress Note ---
Cardiology SOAP Progress Note Subjective: very drowsy. Objective: I&O/Vital Signs Vital Sign - Last 12Hours 12/16/17 12/16/17 12/16/17 03:55 08:36 12:00 Temp 97.7 96.1 96.9 Pulse 79 96 90 Resp 18 B/P (MAP) 142/66 (91) 131/82 (98) 138/76 (96) Pulse Ox 97 95 92 O2 Delivery Room Air Room Air Room Air Intake and Output 12/16/17 00:00 Intake Total 800 ml Output Total 1900 ml Balance -1100 ml Weight (Pounds): 180 Weight (Ounces): 5.0 Weight (Calculated Kilograms): [id number] Constitutional: appears stated age, other (noncommunicative) Respiratory: No accessory muscle use, No respiratory distress, No chest tender , No chest expansion is symmetric, chest is bilaterally symmetric, No lungs clear to percussion, lungs clear to auscultation, No crackles, No rhonchi, No rales, No stridor, No wheezing, No pleural rub, No other Cardiovascular: regular rate-rhythm, No irregularly irregular, No extra beats, No parasternal heave is noted, No JVD, No edema, No bradycardia, tachycardia, No point of maximal impulse, No cardiac thrills are palpable, S1 and S2, No gallop/S3, No gallop/S4, No diastolic murmur, No systolic murmur, No friction rub, No click, No other Gastrointestional: No tender, No soft, No round, No distended, No pulsatile mass, No organomegaly, No guarding, No rebound, No tenderness, No hernia, No mass, No audible bowel sounds, No abnormal bowel sounds, No abdominal bruits, No spleenomegaly, No other Extremities: pedal edema Neurologic/Psychiatric: facial droop Skin: No normal color, No warm/dry, No cyanosis, No cool, No diaphoresis, No damp, No ecchymosis, No jaundice, No mottled, No pallor, No rash, No tattoos/ piercings, No ulcerations, No rash on exposed areas, No ulcerations on exposed areas, No other Results/Procedures: Labs Laboratory Tests 12/15/17 15:22: Glucometer 164H 12/15/17 21:00: Glucometer 162H 12/16/17 05:23: White Blood Count 8.1, Red Blood Count 3.35L, Hemoglobin 10.0L, Hematocrit 30L, Mean Corpuscular Volume 90, Mean Corpuscular Hemoglobin 30, Mean Corpuscular Hemoglobin Concent 33, Red Cell Distribution Width 15.5H, Platelet Count 375, Mean Platelet Volume 10.6H, Neutrophils (%) (Auto) 58, Lymphocytes (%) (Auto) 24 , Monocytes (%) (Auto) 9, Eosinophils (%) (Auto) 8, Basophils (%) (Auto) 0, Neutrophils # (Auto) 4.7, Lymphocytes # (Auto) 2.0, Monocytes # (Auto) 0.8, Eosinophils # (Auto) 0.7H, Basophils # (Auto) 0.0, Prothrombin Time 25.9H, INR Comment 2.4H, Sodium Level 141, Potassium Level 3.4L, Chloride Level 107, Carbon Dioxide Level 26, Anion Gap 8, Blood Urea Nitrogen 7, Creatinine 0.71, Estimat Glomerular Filtration Rate > 60, BUN/Creatinine Ratio 10, Glucose Level 146H, Calcium Level 8.0L, Total Bilirubin 0.3, Aspartate Amino Transf (AST/SGOT ) 34, Alanine Aminotransferase (ALT/SGPT) 26, Alkaline Phosphatase 93, Total Protein 4.5L, Albumin 2.1L 12/16/17 05:45: Glucometer 118H 12/16/17 11:05: Glucometer 154H Microbiology 12/11/17 Blood Culture - Preliminary, Resulted No growth 12/11/17 Urine Culture - Final, Complete Escherichia coli A/P: Assessment/Dx: Altered mental status, improved UTI sepsis, Metabolic acidosis, Urolithiasis, Chronic kidney disease, Tachycardia, improved CVA, Lower extremity swelling. Plan: Cardiology was consulted for tachycardia. Likely sinus tachycardia in response to UTI sepsis. Improved heart rate. I spoke with one of the daughters who has power of systems program manager however she was unaware of history of any rhythm abnormalities. Also she thought Coumadin was for stroke. And that the patient did not have any previous cardiac history. Therefore, in short, I am unaware of the indication of coumadin in this patient and will leave it upto the her PCP to decide whether she needs to continue Coumadin or not. The patient was on a beta david and calcium channel david as an outpatient. Both will be started. Coumadin has been held for possible urological procedure with Dr. Read. Supratherapeutic INR: Coumadin has been held. UTI sepsis treatment with IV fluids and antibiotics. Suspicion for pancreatitis on CT scan however blood work is negative. I will continue to follow. Thank you for your consultation. Please call me if you have any questions. Iza Jaramillo MD, FACP, FACC, FSCAI, FHRS, CCDS Interventional Cardiology Cardiac Electrophysiology Vascular Medicine and Endovascular Interventions Gregoria JARAMILLO MD Dec 16, 2017 12:34 pm
--- NOTE | 2017-12-16 21:41 | Progress Note (SOAP) ---
Subjective Date Seen by Provider: Dec 16, 2017 Time Seen by Provider: 21:00 Subjective/Events-last exam doing ok. no new complaints. tolerating diet. still having dark BM's. Hb stable. Objective Exam Vital Signs Date Time Temp Pulse Resp B/P (MAP) Pulse Ox O2 Delivery O2 Flow Rate FiO2 12/16/17 19:45 99.6 112 18 179/76 (110) 100 Room Air 12/16/17 15:59 98.3 104 16 165/83 (110) 92 Room Air 12/16/17 12:00 96.9 90 18 138/76 (96) 92 Room Air 12/16/17 08:36 96.1 96 18 131/82 (98) 95 Room Air 12/16/17 03:55 97.7 79 18 142/66 (91) 97 Room Air 12/16/17 00:00 98.5 85 14 130/63 (85) 97 Room Air I & O 12/16/17 07:00 Intake Total 800 ml Output Total 2850 ml Balance -2050 ml Capillary Refill : Less Than 3 SecondsLess Than 3 Seconds General Appearance: No Apparent Distress HEENT: PERRL/EOMI Neck: Full Range of Motion Respiratory: Chest Non Tender, Normal Breath Sounds Cardiovascular: Regular Rate, Rhythm Gastrointestinal: normal bowel sounds, non tender, soft Extremity: Normal Capillary Refill Neurologic/Psychiatric: Alert Skin: Normal Color Lymphatic: No Adenopathy Results Lab Laboratory Tests 12/16/17 05:23: White Blood Count 8.1, Red Blood Count 3.35L, Hemoglobin 10.0L, Hematocrit 30L, Mean Corpuscular Volume 90, Mean Corpuscular Hemoglobin 30, Mean Corpuscular Hemoglobin Concent 33, Red Cell Distribution Width 15.5H, Platelet Count 375, Mean Platelet Volume 10.6H, Neutrophils (%) (Auto) 58, Lymphocytes (%) (Auto) 24 , Monocytes (%) (Auto) 9, Eosinophils (%) (Auto) 8, Basophils (%) (Auto) 0, Neutrophils # (Auto) 4.7, Lymphocytes # (Auto) 2.0, Monocytes # (Auto) 0.8, Eosinophils # (Auto) 0.7H, Basophils # (Auto) 0.0, Prothrombin Time 25.9H, INR Comment 2.4H, Sodium Level 141, Potassium Level 3.4L, Chloride Level 107, Carbon Dioxide Level 26, Anion Gap 8, Blood Urea Nitrogen 7, Creatinine 0.71, Estimat Glomerular Filtration Rate > 60, BUN/Creatinine Ratio 10, Glucose Level 146H, Calcium Level 8.0L, Total Bilirubin 0.3, Aspartate Amino Transf (AST/SGOT ) 34, Alanine Aminotransferase (ALT/SGPT) 26, Alkaline Phosphatase 93, Total Protein 4.5L, Albumin 2.1L 12/16/17 05:45: Glucometer 118H 12/16/17 11:05: Glucometer 154H 12/16/17 15:42: Glucometer 142H 12/16/17 21:17: Glucometer 133H Microbiology 12/11/17 Blood Culture - Preliminary, Resulted No growth 12/11/17 Urine Culture - Final, Complete Escherichia coli Assessment/Plan Assessment/Plan Assess & Plan/Chief Complaint symptomatic nephrolithiasis, dysphagia and upper GI bleed. schedule EGD with possible balloon dilatiation on sat(12/18) in conjuction with dr. Read cystoscopy. Clinical Quality Measures DVT/VTE Risk/Contraindication: Risk Factor Score Per Nursin RFS Level Per Nursing on Admit: 4+=Very High Contraindications-Pharm: Other *list below* JOSE JUAN FAUST MD Dec 16, 2017 9:41 pm
[2017-12-16] MEDS: ATORVASTATIN 10 MG (LIPITOR) TABLET PO SCH (22:14)
[2017-12-17 04:17] VITALS: BP 134/63
[2017-12-17 05:45] LABS: BASOPHILS % (AUTO) 0 % (0-10); EOSINOPHILS # (AUTO) 0.7 10^3/uL (0.0-0.3); EOSINOPHILS % (AUTO) 7 % (0-10); HEMATOCRIT 31 % (35-52); HEMOGLOBIN 10.2 G/DL (11.5-16.0); LYMPHOCYTES % (AUTO) 22 % (12-44); MEAN CORPUSCULAR HEMOGLOBIN 30 PG (25-34); MEAN CORPUSCULAR HGB CONC 33 G/DL (32-36); MEAN CORPUSCULAR VOLUME 90 FL (80-99); MEAN PLATELET VOLUME 10.3 FL (7.4-10.4); MONOCYTES # (AUTO) 0.9 X 10^3 (0.0-1.0); MONOCYTES % (AUTO) 9 % (0-12); NEUTROPHILS # (AUTO) 5.7 X 10^3 (1.8-7.8); NEUTROPHILS % (AUTO) 61 % (42-75); PLATELET COUNT 382 10^3/uL (130-400); RED BLOOD COUNT 3.44 10^6/uL (4.35-5.85); RED CELL DISTRIBUTION WIDTH 15.6 % (10.0-14.5); WHITE BLOOD COUNT 9.3 10^3/uL (4.3-11.0)
[2017-12-17 05:47] LABS: INR 1.8 (0.8-1.4); PROTHROMBIN TIME PATIENT 20.8 SEC (12.2-14.7)
[2017-12-17 05:55] LABS: ALANINE AMINOTRANSFERASE 21 U/L (0-55); ALBUMIN 2.2 GM/DL (3.2-4.5); ALKALINE PHOSPHATASE 99 U/L (40-136); BILIRUBIN,TOTAL 0.3 MG/DL (0.1-1.0); BUN/CREATININE RATIO 10; CALCIUM 7.9 MG/DL (8.5-10.1); CARBON DIOXIDE 24 MMOL/L (21-32); CHLORIDE 109 MMOL/L (98-107); CREATININE SERUM 0.69 MG/DL (0.60-1.30); GFR ESTIMATED > 60; GLUCOSE 158 MG/DL (70-105); POTASSIUM 3.6 MMOL/L (3.6-5.0); SODIUM 140 MMOL/L (135-145); TOTAL PROTEIN 4.7 GM/DL (6.4-8.2)
[2017-12-17] MEDS: NYSTATIN ORAL SUSP 5 ML UDC PO SCH ×3 (06:11→17:03)
[2017-12-17] MEDS: inSUlin (REGULAR) HUMAN 1 UNIT/0.01 ML (CHARGE PER UNIT) SC SCH ×4 (06:11→21:30)
[2017-12-17] MEDS: PANTOPRAZOLE 20 MG TABLET (PROTONIX) PO SCH (06:11)
[2017-12-17] MEDS: MAGNESIUM OXIDE (MAG-OX)400 MG TAB PO SCH (06:11)
[2017-12-17] MEDS: FERROUS SULF 325 MG (IRON) TAB PO SCH (06:11)
[2017-12-17] MEDS: KCL 20 MEQ POWDER FOR ORAL SOLUTION PO SCH ×2 (06:11→17:03)
--- NOTE | 2017-12-17 07:25 | Progress Note-Pre Operative ---
Pre-Operative Progress Note H&P Reviewed The H&P was reviewed, patient examined and no changes noted. Date Seen by Provider: Dec 17, 2017 Time Seen by Provider: 07:24 Date H&P Reviewed: Dec 17, 2017 Time H&P Reviewed: 07:25 Pre-Operative Diagnosis: LT DISTAL URETERAL STONE EUSEBIA OSORIO MD Dec 17, 2017 7:25 am
[2017-12-17 08:00] VITALS: BP 154/82
[2017-12-17] MEDS: DILTIAZEM 180 MG (CARDIZEM CD) CAP PO SCH (08:01)
[2017-12-17] MEDS: meTOprolol TARTRATE 25 MG (LOPRESSOR) TABLET PO SCH ×2 (08:01→22:08)
[2017-12-17] MEDS: cefTRIAXone 1 GM/NS 100 ML IVPB IV SCH ×2 (08:01)
[2017-12-17] MEDS: NS IV 1000 ML 1,000 ML IV SCH ×2 (08:01→23:15)
[2017-12-17] MEDS: LEVETIRACETAM 1,000 MG (KEPPRA) TABLET PO SCH ×2 (08:02→22:08)
[2017-12-17] MEDS: ACETAMINOPHEN 325 MG TABLET/CAPLET (TYLENOL) PO SCH ×3 (08:02→22:11)
[2017-12-17] MEDS: LACTOBACILLUS Acidoph/Bulgar (LACTINEX/FLORANEX) TAB PO SCH (08:02)
--- NOTE | 2017-12-17 08:32 | Progress Note ---
Subjective Date Seen by Provider: Dec 17, 2017 Time Seen by Provider: 08:30 Subjective/Events-last exam PT REPORTS THAT SHE IS FEELING GOOD TODAY- SHE IS HAVING ABDOMINAL PAIN, SHE DENIES ANY OTHER COMPLAINTS TODAY Review of Systems General: No Chills, Fatigue HEENT: No Head Aches Pulmonary: No Dyspnea, No Cough Cardiovascular: No: Chest Pain Gastrointestinal: No: Nausea Neurological: Weakness Objective Exam Last Set of Vital Signs Vital Signs Date Time Temp Pulse Resp B/P (MAP) Pulse Ox O2 Delivery O2 Flow Rate FiO2 12/17/17 04:17 97.5 89 18 134/63 (86) 98 Room Air Capillary Refill : Less Than 3 SecondsLess Than 3 Seconds I&O Intake and Output 12/17/17 00:00 Intake Total 1410 ml Output Total 2250 ml Balance -840 ml Intake Oral 360 ml IV Total 1050 ml Output Urine Total 2250 ml # Bowel Movements 2 General: Alert, Other (ORIENTED TO PERSON, NOT PLACE) HEENT: Atraumatic, PERRLA Neck: Supple Lungs: Clear to Auscultation Heart: Regular Rate Abdomen: Normal Bowel Sounds, Soft Psych/Mental Status: Mental Status NL, Mood NL Results Lab Laboratory Tests 12/16/17 11:05: Glucometer 154H 12/16/17 15:42: Glucometer 142H 12/16/17 21:17: Glucometer 133H 12/17/17 05:17: White Blood Count 9.3, Red Blood Count 3.44L, Hemoglobin 10.2L, Hematocrit 31L, Mean Corpuscular Volume 90, Mean Corpuscular Hemoglobin 30, Mean Corpuscular Hemoglobin Concent 33, Red Cell Distribution Width 15.6H, Platelet Count 382, Mean Platelet Volume 10.3, Neutrophils (%) (Auto) 61, Lymphocytes (%) (Auto) 22 , Monocytes (%) (Auto) 9, Eosinophils (%) (Auto) 7, Basophils (%) (Auto) 0, Neutrophils # (Auto) 5.7, Lymphocytes # (Auto) 2.0, Monocytes # (Auto) 0.9, Eosinophils # (Auto) 0.7H, Basophils # (Auto) 0.0, Prothrombin Time 20.8H, INR Comment 1.8H, Sodium Level 140, Potassium Level 3.6, Chloride Level 109H, Carbon Dioxide Level 24, Anion Gap 7, Blood Urea Nitrogen 7, Creatinine 0.69, Estimat Glomerular Filtration Rate > 60, BUN/Creatinine Ratio 10, Glucose Level 158H, Calcium Level 7.9L, Total Bilirubin 0.3, Aspartate Amino Transf (AST/SGOT ) 25, Alanine Aminotransferase (ALT/SGPT) 21, Alkaline Phosphatase 99, Total Protein 4.7L, Albumin 2.2L 12/17/17 05:23: Glucometer 134H Microbiology 12/11/17 Blood Culture - Preliminary, Resulted No growth 12/11/17 Urine Culture - Final, Complete Escherichia coli Assessment/Plan Assessment/Plan Assess & Plan/Chief Complaint E.COLI URINARY TRACT INFECTION DYSPHAGIA URETERAL STONE HEMOCCULT POSITIVE STOOL ELEVATED INR CONFUSION DEMENTIA ANEMIA PANCREATIC LESION E.COLI URINARY TRACT INFECTION - ON IV ANTIBIOTICS, CONTINUE WITH CURRENT REGIMEN. DYSPHAGIA - WITH GI BLEED - HEMOCCULT POSITIVE STOOL - DR. FAUST TO PERFORM EGD TOMORROW URETERAL STONE - WAITING ON LITHOTRIPSY/TREATMENT PER DR. OSORIO - TOMORROW ELEVATED INR - HOLDING COUMADIN CONFUSION AND DEMENTIA - STABLE ANEMIA - STABILIZED - MONITOR H AND H. PANCREATIC LESION - MONITOR - WILL HAVE TO REPEAT IMAGING IN THE NEXT FEW WEEKS AFTER ALLOWING FOR RESOLUTION OF POSSIBLE INFLAMMATION. Clinical Quality Measures DVT/VTE Risk/Contraindication: Risk Factor Score Per Nursin RFS Level Per Nursing on Admit: 4+=Very High Contraindications-Pharm: Other *list below* RAJAT DE LOS SANTOS MD Dec 17, 2017 08:32
--- NOTE | 2017-12-17 10:22 | Progress Note-Urology ---
Progress Note-Urology Progress Notes/Assess & Plan Progress/Assessment & Plan STONE MOVED TO DISTAL URETER. PLAN LT URETEROSCOPY WITH STONE LITHOTRIPSY, BASKET, STENT, ESWL OR LITHOTOMY TOMORROW PREOPS AND CONSENT ORDERED ANESTHESIA TO SEE TODAY INR NORMAL Final Diagnosis LT DISTAL URETERAL AND RENAL STONES EUSEBIA OSORIO MD Dec 17, 2017 10:22 am
--- NOTE | 2017-12-17 10:55 | Cardiology Progress Note ---
Cardiology SOAP Progress Note Subjective: Still very drowsy. Objective: I&O/Vital Signs Vital Sign - Last 12Hours 12/16/17 12/17/17 12/17/17 23:31 04:17 08:00 Temp 98.0 97.5 98.3 Pulse 103 89 98 Resp 18 18 16 B/P (MAP) 166/73 (104) 134/63 (86) 154/82 (106) Pulse Ox 94 98 99 O2 Delivery Room Air Room Air Room Air Intake and Output 12/17/17 00:00 Intake Total 1310 ml Output Total 1300 ml Balance 10 ml Weight (Pounds): 180 Weight (Ounces): 5.0 Weight (Calculated Kilograms): 81.559593 Constitutional: appears stated age, other (noncommunicative) Respiratory: No accessory muscle use, No respiratory distress, No chest tender , No chest expansion is symmetric, chest is bilaterally symmetric, No lungs clear to percussion, lungs clear to auscultation, No crackles, No rhonchi, No rales, No stridor, No wheezing, No pleural rub, No other Cardiovascular: regular rate-rhythm, No irregularly irregular, No extra beats, No parasternal heave is noted, No JVD, No edema, No bradycardia, tachycardia, No point of maximal impulse, No cardiac thrills are palpable, S1 and S2, No gallop/S3, No gallop/S4, No diastolic murmur, No systolic murmur, No friction rub, No click, No other Gastrointestional: No tender, No soft, No round, No distended, No pulsatile mass, No organomegaly, No guarding, No rebound, No tenderness, No hernia, No mass, No audible bowel sounds, No abnormal bowel sounds, No abdominal bruits, No spleenomegaly, No other Extremities: No normal range of motion, No non-tender, No normal inspection, pedal edema, No calf tenderness, No normal capillary refill, No pelvis stable, No calf tenderness, No inflammation, No pedal edema, No slow capillary refill, No swelling, No other, No abrasion, No clubbing, No cyanosis, No ecchymosis, No laceration, No no lower extremity edema bilateral, No significant edema, No tenderness, No wound Neurologic/Psychiatric: No zone supervisor firearms II-XII nml as tested, No no motor/sensory deficits, No alert, No normal mood/affect, No oriented x 3, No abnormal cerebellar tests, No abnormal zone supervisor firearms II-XII, No abnormal gait, No aphasia, No EOM palsy, facial droop, No motor weakness, No sensory deficit, No depressed affect , No disoriented x 3, No other, No grossly intact, No power is 5/5 both on sides Skin: No normal color, No warm/dry, No cyanosis, No cool, No diaphoresis, No damp, No ecchymosis, No jaundice, No mottled, No pallor, No rash, No tattoos/ piercings, No ulcerations, No rash on exposed areas, No ulcerations on exposed areas, No other Results/Procedures: Labs Laboratory Tests 12/16/17 11:05: Glucometer 154H 12/16/17 15:42: Glucometer 142H 12/16/17 21:17: Glucometer 133H 12/17/17 05:17: White Blood Count 9.3, Red Blood Count 3.44L, Hemoglobin 10.2L, Hematocrit 31L, Mean Corpuscular Volume 90, Mean Corpuscular Hemoglobin 30, Mean Corpuscular Hemoglobin Concent 33, Red Cell Distribution Width 15.6H, Platelet Count 382, Mean Platelet Volume 10.3, Neutrophils (%) (Auto) 61, Lymphocytes (%) (Auto) 22 , Monocytes (%) (Auto) 9, Eosinophils (%) (Auto) 7, Basophils (%) (Auto) 0, Neutrophils # (Auto) 5.7, Lymphocytes # (Auto) 2.0, Monocytes # (Auto) 0.9, Eosinophils # (Auto) 0.7H, Basophils # (Auto) 0.0, Prothrombin Time 20.8H, INR Comment 1.8H, Sodium Level 140, Potassium Level 3.6, Chloride Level 109H, Carbon Dioxide Level 24, Anion Gap 7, Blood Urea Nitrogen 7, Creatinine 0.69, Estimat Glomerular Filtration Rate > 60, BUN/Creatinine Ratio 10, Glucose Level 158H, Calcium Level 7.9L, Total Bilirubin 0.3, Aspartate Amino Transf (AST/SGOT ) 25, Alanine Aminotransferase (ALT/SGPT) 21, Alkaline Phosphatase 99, Total Protein 4.7L, Albumin 2.2L 12/17/17 05:23: Glucometer 134H 12/17/17 10:41: Glucometer 183H Microbiology 12/11/17 Blood Culture - Preliminary, Resulted No growth 12/11/17 Urine Culture - Final, Complete Escherichia coli A/P: Assessment/Dx: Altered mental status, improved UTI sepsis, Metabolic acidosis, Urolithiasis, Chronic kidney disease, Tachycardia, improved CVA, Lower extremity swelling. Plan: Cardiology was consulted for tachycardia. Likely sinus tachycardia in response to UTI sepsis. Improved heart rate. I spoke with one of the daughters who has power of plumber maintenance however she was unaware of history of any rhythm abnormalities. Also she thought Coumadin was for stroke. And that the patient did not have any previous cardiac history. Therefore, in short, I am unaware of the indication of coumadin in this patient and will leave it upto the her PCP to decide whether she needs to continue Coumadin or not. The patient was on a beta david and calcium channel david as an outpatient. Both will be started. Coumadin has been held for possible urological procedure with Dr. Read. INR almost at baseline. Urological procedure likely tomorrow. Supratherapeutic INR: Coumadin has been held. INR almost at baseline now. UTI sepsis treatment with IV fluids and antibiotics. Suspicion for pancreatitis on CT scan however blood work is negative. EGD by Dr. Valentine tomorrow I will continue to follow. Thank you for your consultation. Please call me if you have any questions. Iza Jaramillo MD, FACP, FACC, FSCAI, FHRS, CCDS Interventional Cardiology Cardiac Electrophysiology Vascular Medicine and Endovascular Interventions Gregoria JARAMILLO MD Dec 17, 2017 10:55 am
[2017-12-17 12:00] VITALS: BP 161/75
--- NOTE | 2017-12-17 13:05 | Diagnostic Imaging Report ---
INDICATION: Left-sided urinary tract calculi. TIME OF EXAM: 8:53 AM Correlation is made with prior study one day earlier. FINDINGS: Multiple calcific densities overlie the lower pole of the left kidney, similar to prior exam. Previously seen pelvic calcifications also appear to be similar and distal left ureteric calculus cannot be entirely excluded. Postsurgical change in the right upper quadrant and lower lumbar spine are unchanged. Bowel gas pattern is unremarkable. IMPRESSION: Stable KUB when compared with examination one day earlier. Dictated by: Dictated on workstation # [id number]
--- NOTE | 2017-12-17 14:25 | Progress Note (SOAP) ---
Subjective Date Seen by Provider: Dec 17, 2017 Time Seen by Provider: 14:00 Subjective/Events-last exam doing ok. no new symptoms, hb stable. Objective Exam Vital Signs Date Time Temp Pulse Resp B/P (MAP) Pulse Ox O2 Delivery O2 Flow Rate FiO2 12/17/17 12:00 99.6 73 16 161/75 (103) 98 Room Air 12/17/17 08:00 98.3 98 16 154/82 (106) 99 Room Air 12/17/17 04:17 97.5 89 18 134/63 (86) 98 Room Air 12/16/17 23:31 98.0 103 18 166/73 (104) 94 Room Air 12/16/17 19:45 99.6 112 18 179/76 (110) 100 Room Air 12/16/17 15:59 98.3 104 16 165/83 (110) 92 Room Air I & O 12/17/17 07:00 Intake Total 1630 ml Output Total 1680 ml Balance -50 ml Capillary Refill : Less Than 3 SecondsLess Than 3 Seconds General Appearance: No Apparent Distress HEENT: PERRL/EOMI Neck: Full Range of Motion Respiratory: Chest Non Tender, Lungs Clear Cardiovascular: Regular Rate, Rhythm Gastrointestinal: normal bowel sounds, non tender, soft Extremity: Normal Capillary Refill Neurologic/Psychiatric: Alert, Oriented x3 Skin: Normal Color Lymphatic: No Adenopathy Results Lab Laboratory Tests 12/16/17 15:42: Glucometer 142H 12/16/17 21:17: Glucometer 133H 12/17/17 05:17: White Blood Count 9.3, Red Blood Count 3.44L, Hemoglobin 10.2L, Hematocrit 31L, Mean Corpuscular Volume 90, Mean Corpuscular Hemoglobin 30, Mean Corpuscular Hemoglobin Concent 33, Red Cell Distribution Width 15.6H, Platelet Count 382, Mean Platelet Volume 10.3, Neutrophils (%) (Auto) 61, Lymphocytes (%) (Auto) 22 , Monocytes (%) (Auto) 9, Eosinophils (%) (Auto) 7, Basophils (%) (Auto) 0, Neutrophils # (Auto) 5.7, Lymphocytes # (Auto) 2.0, Monocytes # (Auto) 0.9, Eosinophils # (Auto) 0.7H, Basophils # (Auto) 0.0, Prothrombin Time 20.8H, INR Comment 1.8H, Sodium Level 140, Potassium Level 3.6, Chloride Level 109H, Carbon Dioxide Level 24, Anion Gap 7, Blood Urea Nitrogen 7, Creatinine 0.69, Estimat Glomerular Filtration Rate > 60, BUN/Creatinine Ratio 10, Glucose Level 158H, Calcium Level 7.9L, Total Bilirubin 0.3, Aspartate Amino Transf (AST/SGOT ) 25, Alanine Aminotransferase (ALT/SGPT) 21, Alkaline Phosphatase 99, Total Protein 4.7L, Albumin 2.2L 12/17/17 05:23: Glucometer 134H 12/17/17 10:41: Glucometer 183H Microbiology 12/11/17 Blood Culture - Preliminary, Resulted No growth 12/11/17 Urine Culture - Final, Complete Escherichia coli Assessment/Plan Assessment/Plan Assess & Plan/Chief Complaint symptomatic nephrolithiasis, dysphagia and upper GI bleed. schedule EGD with possible balloon dilatiation on sat(12/18) in conjuction with dr. Read cystoscopy. Clinical Quality Measures DVT/VTE Risk/Contraindication: Risk Factor Score Per Nursin RFS Level Per Nursing on Admit: 4+=Very High Contraindications-Pharm: Other *list below* JOSE JUAN FAUST MD Dec 17, 2017 2:25 pm
[2017-12-17 16:00] VITALS: BP 130/71
[2017-12-17 20:00] VITALS: BP 161/69
--- NOTE | 2017-12-17 21:33 | Progress Note-Pre Operative ---
Pre-Operative Progress Note H&P Reviewed The H&P was reviewed, patient examined and no changes noted. Date Seen by Provider: Dec 17, 2017 Time Seen by Provider: 21:00 Date H&P Reviewed: Dec 17, 2017 Time H&P Reviewed: 21:00 Pre-Operative Diagnosis: dysphagia, PUD, upper GI bleed JOSE JUAN FAUST MD Dec 17, 2017 9:33 pm
--- NOTE | 2017-12-17 21:33 | Conscious Sedation/ASA ---
Conscious Sedation Pre-Proced Time Reviewed: 21:00 ASA Class: 3 Airway Mallampati Classification: (seldovia appropriate class) I. II. III, IV Lungs Heart ASA score ASA 1: a normal healthy patient ASA 2: a patient with a mild systemic disease (mid diabetes, controlled hypertension, obesity ASA 3: a patient with a severe systemic disease that limits activity (angina , COPD, prior Myocardial infarction) ASA 4: a patient with an incapacitating disease that is a constant threat to life (CHF, renal failure) ASA 5: a moribund patient not expected to survive 24 hrs. (ruptured aneurysm) ASA 6: a declared brain patient whose organs are being harvested. For emergent operations, add the letter E after the classification Grade 2 Sedation Plan: Analgesia, Amnesia, Plan communicated to team members, Discussed options with patient/fam, Discussed risks with patient/fam Note The patient is an appropriate candidate to undergo the planned procedure, sedation, and anesthesia. The patient immediately re-assessed prior to indication. JOSE JUAN FAUST MD Dec 17, 2017 9:33 pm
[2017-12-17] MEDS: ATORVASTATIN 10 MG (LIPITOR) TABLET PO SCH (22:08)
[2017-12-17 23:26] VITALS: BP 137/67
[2017-12-18 04:00] VITALS: BP 161/73
[2017-12-18] MEDS: inSUlin (REGULAR) HUMAN 1 UNIT/0.01 ML (CHARGE PER UNIT) SC SCH ×4 (06:07→21:06)
[2017-12-18] MEDS: FERROUS SULF 325 MG (IRON) TAB PO SCH (06:07)
[2017-12-18] MEDS: NYSTATIN ORAL SUSP 5 ML UDC PO SCH ×4 (06:07→17:42)
[2017-12-18] MEDS: PANTOPRAZOLE 20 MG TABLET (PROTONIX) PO SCH (06:08)
[2017-12-18] MEDS: KCL 20 MEQ POWDER FOR ORAL SOLUTION PO SCH ×2 (06:08→17:42)
[2017-12-18] MEDS: MAGNESIUM OXIDE (MAG-OX)400 MG TAB PO SCH (06:08)
--- NOTE | 2017-12-18 07:01 | Progress Note-Pre Operative ---
Pre-Operative Progress Note H&P Reviewed The H&P was reviewed, patient examined and no changes noted. Date Seen by Provider: Dec 18, 2017 Time Seen by Provider: 07:01 Date H&P Reviewed: Dec 17, 2017 Time H&P Reviewed: 07:01 Pre-Operative Diagnosis: LT URETERAL AND RENAL STONES EUSEBIA OSORIO MD Dec 18, 2017 7:01 am
[2017-12-18 08:00] VITALS: BP 149/65
--- NOTE | 2017-12-18 08:08 | Speech Therapy Progress Note ---
Therapy Progress Note The patient is currently NPO for a procedure with Dr. Read. Speech pathology will reattempt swallowing follow up at a later time. Thank you. SHEN DUFFY Dec 18, 2017 08:08
[2017-12-18] MEDS: LACTOBACILLUS Acidoph/Bulgar (LACTINEX/FLORANEX) TAB PO SCH (08:19)
[2017-12-18] MEDS: ACETAMINOPHEN 325 MG TABLET/CAPLET (TYLENOL) PO SCH ×3 (08:19→21:00)
[2017-12-18] MEDS: cefTRIAXone 1 GM/NS 100 ML IVPB IV SCH ×2 (08:37)
[2017-12-18] MEDS: meTOprolol TARTRATE 25 MG (LOPRESSOR) TABLET PO SCH ×2 (08:38→21:00)
[2017-12-18] MEDS: LEVETIRACETAM 1,000 MG (KEPPRA) TABLET PO SCH ×2 (08:38→21:00)
[2017-12-18] MEDS: DILTIAZEM 180 MG (CARDIZEM CD) CAP PO SCH (08:38)
--- NOTE | 2017-12-18 08:39 | Progress Note ---
Subjective Date Seen by Provider: Dec 18, 2017 Time Seen by Provider: 08:39 Subjective/Events-last exam PT REPORTS THAT SHE IS NOT HAVING ANY ABDOMINAL PAIN, NO NAUSEA - NO DIZZINESS, NO HCEST PAIN. STAF NOTES THAT SHE IS GROGGY Review of Systems General: No Chills, Fatigue HEENT: No Head Aches Pulmonary: No Dyspnea, No Cough Cardiovascular: No: Chest Pain Gastrointestinal: No: Nausea, Abdominal Pain Neurological: Weakness, Confusion (INTERMITTENT) Objective Exam Last Set of Vital Signs Vital Signs Date Time Temp Pulse Resp B/P (MAP) Pulse Ox O2 Delivery O2 Flow Rate FiO2 12/18/17 08:00 97.6 94 18 149/65 (93) 100 Room Air Capillary Refill : Less Than 3 SecondsLess Than 3 Seconds I&O Intake and Output 12/18/17 00:00 Intake Total 1920 ml Output Total 1755 ml Balance 165 ml Intake Oral 820 ml IV Total 1100 ml Output Urine Total 1755 ml # Bowel Movements 4 General: Alert, Oriented X3 HEENT: Atraumatic, PERRLA Lungs: Clear to Auscultation Heart: Regular Rate Abdomen: Normal Bowel Sounds, Soft Psych/Mental Status: Mental Status NL Results Lab Laboratory Tests 12/17/17 10:41: Glucometer 183H 12/17/17 16:12: Glucometer 126H 12/17/17 20:55: Glucometer 144H 12/18/17 05:01: Glucometer 107 Microbiology 12/11/17 Blood Culture - Final, Complete No growth 12/11/17 Urine Culture - Final, Complete Escherichia coli Assessment/Plan Assessment/Plan Assess & Plan/Chief Complaint E.COLI URINARY TRACT INFECTION DYSPHAGIA URETERAL STONE HEMOCCULT POSITIVE STOOL ELEVATED INR CONFUSION DEMENTIA ANEMIA PANCREATIC LESION E.COLI URINARY TRACT INFECTION - ON IV ANTIBIOTICS, CONTINUE WITH CURRENT REGIMEN. DYSPHAGIA - WITH GI BLEED - HEMOCCULT POSITIVE STOOL - DR. FAUST TO PERFORM EGD URETERAL STONE - WAITING ON LITHOTRIPSY/TREATMENT PER DR. OSORIO ELEVATED INR - HOLDING COUMADIN CONFUSION AND DEMENTIA - STABLE ANEMIA - STABILIZED - MONITOR H AND H. PANCREATIC LESION - MONITOR - WILL HAVE TO REPEAT IMAGING IN THE NEXT FEW WEEKS AFTER ALLOWING FOR RESOLUTION OF POSSIBLE INFLAMMATION. I HAVE TALKED TO THE PT 'S DTR. WILL PLAN ON DISCHARGE SATURDAY AFTER PT HAS HER PROCEDURE ON SATURDAY - SHE IS AWARE OF THE PANCREATIC LESION - POSSIBLE INFLAMMATION VERSUS POSSIBLE PANCREATIC MASS - WE WILL REPEAT CT SCAN IN 1 WEEK FROM DISCHARGE, IF POSITIVE FOR TUMOR, WILL HAVE TO REFER TO [facility] FOR BI[facility]SY. Clinical Quality Measures DVT/VTE Risk/Contraindication: Risk Factor Score Per Nursin RFS Level Per Nursing on Admit: 4+=Very High Contraindications-Pharm: Other *list below* RAJAT DE LOS SANTOS MD Dec 18, 2017 08:39
--- NOTE | 2017-12-18 09:58 | Cardiology Progress Note ---
Cardiology SOAP Progress Note Subjective: Denies any cardiac complaints. Objective: I&O/Vital Signs Vital Sign - Last 12Hours 12/18/17 12/18/17 04:00 08:00 Temp 98.3 97.6 Pulse 87 94 Resp 18 18 B/P (MAP) 161/73 (102) 149/65 (93) Pulse Ox 99 100 O2 Delivery Room Air Room Air Intake and Output 12/18/17 00:00 Intake Total 600 ml Output Total 1375 ml Balance -775 ml Weight (Pounds): 180 Weight (Ounces): 5.0 Weight (Calculated Kilograms): 81.802477 Constitutional: appears stated age, other (noncommunicative) Respiratory: No accessory muscle use, No respiratory distress, No chest tender , No chest expansion is symmetric, chest is bilaterally symmetric, No lungs clear to percussion, lungs clear to auscultation, No crackles, No rhonchi, No rales, No stridor, No wheezing, No pleural rub, No other Cardiovascular: regular rate-rhythm, No irregularly irregular, No extra beats, No parasternal heave is noted, No JVD, No edema, No bradycardia, tachycardia, No point of maximal impulse, No cardiac thrills are palpable, S1 and S2, No gallop/S3, No gallop/S4, No diastolic murmur, No systolic murmur, No friction rub, No click, No other Gastrointestional: No tender, No soft, No round, No distended, No pulsatile mass, No organomegaly, No guarding, No rebound, No tenderness, No hernia, No mass, No audible bowel sounds, No abnormal bowel sounds, No abdominal bruits, No spleenomegaly, No other Extremities: No normal range of motion, No non-tender, No normal inspection, pedal edema, No calf tenderness, No normal capillary refill, No pelvis stable, No calf tenderness, No inflammation, No pedal edema, No slow capillary refill, No swelling, No other, No abrasion, No clubbing, No cyanosis, No ecchymosis, No laceration, No no lower extremity edema bilateral, No significant edema, No tenderness, No wound Neurologic/Psychiatric: No information tech II-XII nml as tested, No no motor/sensory deficits, No alert, No normal mood/affect, No oriented x 3, No abnormal cerebellar tests, No abnormal information tech II-XII, No abnormal gait, No aphasia, No EOM palsy, facial droop, No motor weakness, No sensory deficit, No depressed affect , No disoriented x 3, No other, No grossly intact, No power is 5/5 both on sides Skin: No normal color, No warm/dry, No cyanosis, No cool, No diaphoresis, No damp, No ecchymosis, No jaundice, No mottled, No pallor, No rash, No tattoos/ piercings, No ulcerations, No rash on exposed areas, No ulcerations on exposed areas, No other Results/Procedures: Labs Laboratory Tests 12/17/17 16:12: Glucometer 126H 12/17/17 20:55: Glucometer 144H 12/18/17 05:01: Glucometer 107 12/18/17 10:50: Prothrombin Time 17.8H, INR Comment 1.5H 12/18/17 11:10: Glucometer 129H Microbiology 12/11/17 Blood Culture - Final, Complete No growth 12/11/17 Urine Culture - Final, Complete Escherichia coli A/P: Assessment/Dx: Altered mental status, improved UTI sepsis, Metabolic acidosis, Urolithiasis, Chronic kidney disease, Tachycardia, improved CVA, Lower extremity swelling. Plan: Cardiology was consulted for tachycardia. Likely sinus tachycardia in response to UTI sepsis. Improved heart rate. I spoke with one of the daughters who has power of friction welding machine operator however she was unaware of history of any rhythm abnormalities. Also she thought Coumadin was for stroke. And that the patient did not have any previous cardiac history. Therefore, in short, I am unaware of the indication of coumadin in this patient and will leave it upto the her PCP to decide whether she needs to continue Coumadin or not. The patient was on a beta david and calcium channel david as an outpatient. Both will be started. Coumadin has been held for possible urological procedure with Dr. Read. INR almost at baseline. Urological procedure today. Supratherapeutic INR: Coumadin has been held. INR almost at baseline now. UTI sepsis treatment with IV fluids and antibiotics. Suspicion for pancreatitis on CT scan however blood work is negative. EGD by Dr. Valentine today. I will continue to follow. Thank you for your consultation. Please call me if you have any questions. Iza Jaramillo MD, FACP, FACC, FSCAI, FHRS, CCDS Interventional Cardiology Cardiac Electrophysiology Vascular Medicine and Endovascular Interventions Gregoria JARAMILLO MD Dec 18, 2017 09:58
--- NOTE | 2017-12-18 11:15 | Progress Note-Post Operative ---
Post-Operative Progess Note Surgeon (s)/Manufacturing Production Manager (s) Surgeon EUSEBIA OSORIO MD Manufacturing Production Manager: N/A Pre-Operative Diagnosis LT URETERAL AND RENAL STONES Post-Operative Diagnosis SAME Procedure & Operative Findings Date of Procedure 12/18/17 Procedure Performed/Findings ATTEMPTED LT URETEROSCOPY, LT ESWL Anesthesia Type GENERAL Estimated Blood Loss Estimated blood loss (mL): N/A Specimens/Packing Specimens Removed N/A Packing: N/A EUSEBIA OSORIO MD Dec 18, 2017 11:15 am
[2017-12-18 11:16] LABS: INR 1.5 (0.8-1.4); PROTHROMBIN TIME PATIENT 17.8 SEC (12.2-14.7)
[2017-12-18 12:00] VITALS: BP_SYST 137; BP_SYST 148; BP_DIAS 60; BP_DIAS 94
[2017-12-18] MEDS ORDERED: proPOfol 200 MG/20 ML (DIPRIVAN) VIAL IV ONE (12:14)
[2017-12-18] MEDS ORDERED: ONDANSETRON 4 MG/2 ML (SDV) Z0FRAN ONE (12:14)
[2017-12-18] MEDS ORDERED: LIDOCAINE PF 2% 5 ML (XYLOCAINE) VIAL ONE (12:14)
[2017-12-18] MEDS ORDERED: fentaNYL INJECTION 100 MCG/2 ML AMP ONE (12:15)
[2017-12-18] MEDS ORDERED: ROCURONIUM 10 MG/ML 5 ML SYRINGE IV ONE (12:49)
[2017-12-18] MEDS ORDERED: SEVOFLURANE (ULTANE) 15 ML INHAL SOLN ONE ×6 (12:49→14:52)
[2017-12-18] MEDS: LACTATED RINGERS 1,000 ML IV PRN ×2 (12:50→15:19)
[2017-12-18] MEDS: NS IV 1000 ML 1,000 ML IV SCH ×2 (13:18→17:43)
[2017-12-18] MEDS ORDERED: KETOROLAC 30 MG/ML VIAL ONE (13:46)
[2017-12-18] MEDS ORDERED: FUROSEMIDE 40 MG/4 ML INJ (LASIX) ONE (13:46)
--- NOTE | 2017-12-18 14:16 | Diagnostic Imaging Report ---
INDICATION: Fluoroscopy for left sided lithotripsy. IMPRESSION: Fluoroscopy was provided for Dr. Read during lithotripsy. 36 seconds of fluoroscopy time is utilized. No images were obtained. Dictated by: Dictated on workstation # [id number]
[2017-12-18] MEDS ORDERED: fentaNYL INJECTION 100 MCG/2 ML AMP IVP PRN (14:45)
[2017-12-18] MEDS ORDERED: ONDANSETRON 4 MG/2 ML (SDV) Z0FRAN IVP PRN (14:45)
--- NOTE | 2017-12-18 14:45 | Progress Note-Post Operative ---
Post-Operative Progess Note Surgeon (s)/Glue Drier Operator (s) Surgeon JOSE JUAN FAUST MD Glue Drier Operator: N/A Pre-Operative Diagnosis dysphagia, GI bleed Post-Operative Diagnosis distal esophageal stricture, reflux esophagitis(class B), moderate gastritis. no active bleeding. Procedure & Operative Findings Date of Procedure 12/18/17 Procedure Performed/Findings EGD with bx and balloon dilatation. Anesthesia Type GET Estimated Blood Loss Estimated blood loss (mL): minimal Specimens/Packing Specimens Removed GE jxn, antrum Packing: N/A JOSE JUAN FAUST MD Dec 18, 2017 2:45 pm
[2017-12-18 16:00] VITALS: BP 146/70
[2017-12-18 20:00] VITALS: BP 180/77
[2017-12-18] MEDS: ATORVASTATIN 10 MG (LIPITOR) TABLET PO SCH (21:00)
--- NOTE | 2017-12-18 21:04 | OPERATIVE REPORT ---
DATE OF SERVICE: 12/18/2017 PREOPERATIVE DIAGNOSIS: Left distal ureteral and left renal stones. POSTOPERATIVE DIAGNOSIS: Left distal ureteral and left renal stones. OPERATION PERFORMED: Attempted left ureteroscopy and left ESWL. SURGEON: Jignesh Osorio MD. ANESTHESIA: General. COMPLICATIONS: None. PROCEDURE: Under satisfactory general anesthesia, the patient in lithotomy position on the cystoscopy table. Genitalia were prepped and draped in the usual sterile fashion after removing the Paredes catheter. Examination of the bladder revealed a small capacity bladder with quite a bit of inflammatory changes and edema secondary to the catheter and may be a longstanding chronicity problem of the bladder. I finally was able to locate the left ureteral orifice. I dilated it to the level of the stone. I passed a 6.9-Sl[place] semirigid ureteroscope; however, because of the edematous area, I could not do that safely enough to reach the stone, so I discontinued further attempt, emptied the bladder, moved the patient on the ESWL table, localized the stone. Delivered shocks at kV of 6. A 2500 shocks completely fragmented the stone with excellent results. The patient received 40 mg of Lasix and 50 mg of Toradol IV at the end of the procedure. She tolerated the procedure and anesthesia well and was sent to recovery room in stable condition. Job ID: [id number] DocumentID: [id number] Dictated Date: 12/18/2017 14:02:11 Scaler Date: 12/18/2017 21:03:35 Dictated By: JIGNESH OSORIO MD
--- NOTE | 2017-12-18 21:16 | OPERATIVE REPORT ---
DATE OF SERVICE: 12/18/2017 PREOPERATIVE DIAGNOSES: Dysphagia and upper gastrointestinal bleed. POSTOPERATIVE DIAGNOSES: Reflux esophagitis class B, distal esophageal stricture and Schatzki's ring, small hiatal hernia 1 cm in size, moderate gastritis, pylorus and duodenum appeared normal. There were no ulcerations or any active bleeding source identified. PROCEDURE: EGD with biopsy and balloon dilatation. SURGEON: Dr. Jose Juan Faust. ANESTHESIA: General endotracheal. ESTIMATED BLOOD LOSS: Minimal. FINDINGS: Reflux esophagitis class B, mild to moderate distal esophageal stricture with a Schatzki's ring, small hiatal hernia approximately 1 cm in size, moderate severity gastritis, no ulcers, polyps or any neoplasms identified as well as no active bleeding. The pylorus and duodenum appeared normal. There were no ulcers or bleeding identified in the duodenum. DISPOSITION: The patient tolerated the procedure well. INDICATION FOR PROCEDURE: The patient is a 77-year-old female with history of dysphagia as well as dark tarry stools. She suffered a debilitating stroke and left-sided hemiparesis as well as a facial droop 5 years ago and did not regain function. Her daughter is accompanying her and they state that she has had issues with dysphagia in the past requiring EGD and dilatation. She does not report any known history of peptic ulcer disease or gastroesophageal reflux disease; however, due to her previous stroke, is sometimes unaware of her symptoms. She is also admitted that when she was admitted, she was on Coumadin and she was supratherapeutic with an INR of 4.5. On this admission, she was also found significant urinary tract infection as well as nephrolithiasis. We did allow for a natural drift and reversal of her INR, which is close to the normal range. She underwent a cystoscopy under general anesthesia and we will now proceed with the EGD biopsy as well as dilatation. DESCRIPTION OF PROCEDURE: The mouthpiece was applied and the endoscope was placed in the mouth, visualizing the pharynx and hypopharyngeal region. Vocal cords, epiglottis and vallecula identified and appeared to be normal. The endoscope was then gently intubated at the esophageal opening esophagus insufflated. The endoscope was then advanced to the first, second and third portion of the esophagus at the level of the GE junction, a reflux esophagitis class B identified. There was also mild to moderate distal esophageal stricture and a Schatzki's ring identified. A biopsy was taken of the GE junction with forceps with visualization of good hemostasis. The endoscope was then advanced through the stricture into the stomach and endoscope retroflexed again visualizing the Schatzki's ring as well as a small hiatal hernia approximately 1 cm in size. There was a moderate severity gastritis; however, there were no ulcers, polyps or any neoplasms as well as no active bleeding source identified. A biopsy was taken from the stomach antrum with forceps with visualization of good hemostasis. The endoscope was then advanced to the pylorus and the first and second portion of the duodenum, which appeared normal. There were no duodenal ulcers identified. The endoscope was then slowly withdrawn with taking a second look and suctioning of residual air with no additional findings. The patient tolerated the procedure well. We will recommend continued medical management with an acid reduction as well as the necessary lifestyle and diet accommodation including small and more frequent meals, avoidance of eating at night as well as head elevation while lying supine. She also needs to avoid caffeinated beverages, spicy, greasy and acidic foods and take her Protonix as well. Job ID: [id number] DocumentID: [id number] Dictated Date: 12/18/2017 14:53:01 Transcript Evaluator Date: 12/18/2017 21:16:08 Dictated By: JOSE JUAN FAUST MD MTDD
[2017-12-19] VITALS: BP 148/81
[2017-12-19 04:00] VITALS: BP 111/59
[2017-12-19] MEDS: inSUlin (REGULAR) HUMAN 1 UNIT/0.01 ML (CHARGE PER UNIT) SC SCH ×2 (06:05→11:06)
[2017-12-19 08:00] VITALS: BP 134/59
[2017-12-19] MEDS ORDERED: CEPH-507 PO (08:17)
[2017-12-19] MEDS ORDERED: NYST1000 PO (08:17)
[2017-12-19] MEDS ORDERED: LACT1CAP62 PO (08:17)
--- NOTE | 2017-12-19 08:23 | Discharge Inst-Skilled Nursing ---
Discharge Inst-Skilled NF Patient Instructions Patient Problems: E.COLI URINARY TRACT INFECTION DYSPHAGIA URETERAL STONE HEMOCCULT POSITIVE STOOL ELEVATED INR CONFUSION DEMENTIA ANEMIA Consult/Follow Up/Orders Follow Up Appt.: 2 WKS FILIBERTO YOUNG [address] OF ABD AND PELVIS Skilled NF Admit to: [facility] (SNF) I certify that SNF services are required to be given on an inpatient basis because of the above named patient's need for penitentiary care on a continuing basis for the conditions(s) for which he/she was receiving inpatient hospital services prior to his/her transfer to the [facility]. Penitentiary Facility Order: Nursing Services, Sales And Marketing Director-Evaluate & Treat, Physical Therapy-Evaluate & Treat, Speech Language-Evaluate & Treat Discharge Diet: Other Diet (RESUME PREVIOUS DIET) Daily Activity as Tolerated: Yes New & Resume Previous Orders New & Resume Previous Orders RESUME PREVIOUS ORDERS - SEE MEDICATION REGIMEN NURSING TO EVAL - ENCOURAGE WATER INTAKE PT AND OT EVAL AND TREAT Rajat Alcazar Dec 19, 2017 08:21 RAJAT ALCAZAR MD Dec 19, 2017 08:23
--- NOTE | 2017-12-19 08:25 | Discharge Summary ---
Diagnosis/Chief Complaint Date of Admission Dec 11, 2017 at 12:42 Date of Discharge Discharge Date: Dec 19, 2017 Discharge Time: 08:25 Admission Diagnosis Admission Diagnosis URINARY TRACT INFECTION DYSPHAGIA URETERAL STONE HEMOCCULT POSITIVE STOOL ELEVATED INR CONFUSION DEMENTIA ANEMIA Discharge Diagnosis E.COLI URINARY TRACT INFECTION DYSPHAGIA URETERAL STONE HEMOCCULT POSITIVE STOOL ELEVATED INR CONFUSION DEMENTIA ANEMIA PANCREATIC ABNORMALITY CHRONIC ANTICOAGULATION ESOPHAGITIS Reason Hospital Visit History by daughters. Patient nonresponsive. Patient does open her eyes. Patient has a previous stroke on the left side. Patient has drooping of mouth. Patient brought out to the emergency room. Patient was seen few days ago was on Compazine and nonresponsive after that. Serum lactic acid elevated. UA shows infection. INR 3.7. Surgeries patient had many gallbladder hysterectomy knees and back. Patient fragile Discharge Summary Procedures: EGD, LITHOTRIPSY Consultations DR OSORIO, DR. FAUST Discharge Physical Examination Allergies: Coded Allergies: Penicillins (Unverified Allergy, Unknown, 09/22/15) codeine (Unverified Allergy, Unknown, 09/22/15) morphine (Unverified Allergy, Unknown, 09/22/15) propoxyphene (Unverified Allergy, Unknown, 09/22/15) Vitals & I&Os Vital Signs Date Time Temp Pulse Resp B/P (MAP) Pulse Ox O2 Delivery O2 Flow Rate FiO2 12/19/17 14:30 12/19/17 12:00 98.8 94 16 97 Room Air General Appearance: Alert, Oriented X3, Cooperative HEENT: Atraumatic, PERRLA Respiratory: Clear to Auscultation Cardiovascular: Regular Rate Abdominal: Normal Bowel Sounds, Soft Extremities: No Clubbing, No Cyanosis Skin: No Rashes Psych/Mental Status: Mental Status NL, Mood NL Hospital Course E.COLI URINARY TRACT INFECTION DYSPHAGIA URETERAL STONE HEMOCCULT POSITIVE STOOL ELEVATED INR CONFUSION DEMENTIA ANEMIA PANCREATIC LESION E.COLI URINARY TRACT INFECTION - ON IV ANTIBIOTICS, CONTINUE WITH CURRENT REGIMEN. DYSPHAGIA - WITH GI BLEED - HEMOCCULT POSITIVE STOOL - EGD PERFORMED YESTERDAY - SEE NOTES FROM [facility]RISTIANNE'S OPERATIVE REPORT BELOW: PREOPERATIVE DIAGNOSES: Dysphagia and upper gastrointestinal bleed. POSTOPERATIVE DIAGNOSES: Reflux esophagitis class B, distal esophageal stricture and Schatzki's ring, small hiatal hernia 1 cm in size, moderate gastritis, pylorus and duodenum appeared normal. There were no ulcerations or any active bleeding source identified. PROCEDURE: EGD with biopsy and balloon dilatation. URETERAL STONE - WAITING ON LITHOTRIPSY/TREATMENT PER DR. OSORIO SEE NOTES FROM OPERATIVE REPORT BELOW: PREOPERATIVE DIAGNOSIS: Left distal ureteral and left renal stones. POSTOPERATIVE DIAGNOSIS: Left distal ureteral and left renal stones. OPERATION PERFORMED: Attempted left ureteroscopy and left ESWL. SURGEON: Jignesh Osorio MD. ANESTHESIA: General. COMPLICATIONS: None. PROCEDURE: Under satisfactory general anesthesia, the patient in lithotomy position on the cystoscopy table. Genitalia were prepped and draped in the usual sterile fashion after removing the Paredes catheter. Examination of the bladder revealed a small capacity bladder with quite a bit of inflammatory changes and edema secondary to the catheter and may be a longstanding chronicity problem of the bladder. I finally was able to locate the left ureteral orifice. I dilated it to the level of the stone. I passed a 6.9-Welsh semirigid ureteroscope; however, because of the edematous area, I could not do that safely enough to reach the stone, so I discontinued further attempt, emptied the bladder, moved the patient on the ESWL table, localized the stone. Delivered shocks at kV of 6. A 2500 shocks completely fragmented the stone with excellent results. The patient received 40 mg of Lasix and 50 mg of Toradol IV at the end of the procedure. She tolerated the procedure and anesthesia well and was sent to recovery room in stable condition. ELEVATED INR - RESOLVED - RESTART COUMADIN CONFUSION AND DEMENTIA - STABLE ANEMIA - STABILIZED - MONITOR H AND H. PANCREATIC LESION - MONITOR - WILL HAVE TO REPEAT IMAGING IN THE NEXT FEW WEEKS AFTER ALLOWING FOR RESOLUTION OF POSSIBLE INFLAMMATION. DISCUSSED WITH PT'S DTR - WILL REPEAT CT SCAN IN ONE WEEK FROM DISCHARGE. Pending Labs Discharge Condition at discharge IMPROVED Instructions to patient/family Please see electronic discharge instructions given to patient. Discharge Medications Reviewed and agree with Discharge Medication list on patient's Discharge Instruction sheet Clinical Quality Measures DVT/VTE Risk/Contraindication: Risk Factor Score Per Nursin RFS Level Per Nursing on Admit: 4+=Very High Contraindications-Pharm: Other *list below* RAJAT DE LOS SANTOS MD Dec 19, 2017 08:25
--- NOTE | 2017-12-19 09:20 | Cardiology Progress Note ---
Cardiology SOAP Progress Note Subjective: Lying comfortably in the bed. Objective: I&O/Vital Signs Vital Sign - Last 12Hours 12/19/17 12/19/17 12/19/17 00:00 04:00 08:00 Temp 98.6 98.2 98.2 Pulse 98 109 110 Resp 19 18 16 B/P (MAP) 148/81 (103) 111/59 (76) 134/59 (84) Pulse Ox 98 96 97 O2 Delivery Room Air Room Air Room Air Intake and Output 12/19/17 00:00 Intake Total 1400 ml Output Total 900 ml Balance 500 ml Weight (Pounds): 181 Weight (Ounces): 5.0 Weight (Calculated Kilograms): 82.841033 Constitutional: appears stated age Respiratory: No accessory muscle use, No respiratory distress, No chest tender , No chest expansion is symmetric, chest is bilaterally symmetric, No lungs clear to percussion, lungs clear to auscultation, No crackles, No rhonchi, No rales, No stridor, No wheezing, No pleural rub, No other Cardiovascular: regular rate-rhythm, No irregularly irregular, No extra beats, No parasternal heave is noted, No JVD, No edema, No bradycardia, No point of maximal impulse, No cardiac thrills are palpable, S1 and S2, No gallop/S3, No gallop/S4, No diastolic murmur, No systolic murmur, No friction rub, No click, No other Gastrointestional: No tender, No soft, No round, No distended, No pulsatile mass, No organomegaly, No guarding, No rebound, No tenderness, No hernia, No mass, No audible bowel sounds, No abnormal bowel sounds, No abdominal bruits, No spleenomegaly, No other Extremities: No normal range of motion, No non-tender, No normal inspection, No pedal edema, No calf tenderness, No normal capillary refill, No pelvis stable , No calf tenderness, No inflammation, No pedal edema, No slow capillary refill , No swelling, No other, No abrasion, No clubbing, No cyanosis, No ecchymosis, No laceration, No no lower extremity edema bilateral, No significant edema, No tenderness, No wound Neurologic/Psychiatric: No powerhouse electrician apprentice II-XII nml as tested, No no motor/sensory deficits, No alert, No normal mood/affect, No oriented x 3, No abnormal cerebellar tests, No abnormal powerhouse electrician apprentice II-XII, No abnormal gait, No aphasia, No EOM palsy, facial droop, No motor weakness, No sensory deficit, No depressed affect , No disoriented x 3, No other, No grossly intact, No power is 5/5 both on sides Skin: No normal color, No warm/dry, No cyanosis, No cool, No diaphoresis, No damp, No ecchymosis, No jaundice, No mottled, No pallor, No rash, No tattoos/ piercings, No ulcerations, No rash on exposed areas, No ulcerations on exposed areas, No other Results/Procedures: Labs Laboratory Tests 12/18/17 10:50: Prothrombin Time 17.8H, INR Comment 1.5H 12/18/17 11:10: Glucometer 129H 12/18/17 15:57: Glucometer 148H 12/18/17 20:33: Glucometer 171H 12/19/17 05:51: Glucometer 119H Microbiology 12/11/17 Blood Culture - Final, Complete No growth 12/17/17 MRSA Screen - Final, Complete 12/11/17 Urine Culture - Final, Complete Escherichia coli A/P: Assessment/Dx: Altered mental status, improved UTI sepsis, Metabolic acidosis, Urolithiasis, Chronic kidney disease, Tachycardia, improved CVA, Lower extremity swelling. Plan: Cardiology was consulted for tachycardia. Likely sinus tachycardia in response to UTI sepsis. Improved heart rate. I spoke with one of the daughters who has power of defense attorney however she was unaware of history of any rhythm abnormalities. Also she thought Coumadin was for stroke. And that the patient did not have any previous cardiac history. Therefore, in short, I am unaware of the indication of coumadin in this patient and will leave it upto the her PCP to decide whether she needs to continue Coumadin or not. The patient was on a beta david and calcium channel david as an outpatient. Both were started. Coumadin has been held for possible urological procedure with Dr. Read. INR almost at baseline. Urological procedure and ESWL yesterday. Supratherapeutic INR: Coumadin has been held. INR almost at baseline now. UTI sepsis treatment with IV fluids and antibiotics. Suspicion for pancreatitis on CT scan however blood work is negative. EGD by Dr. Valentine yesterday. I will continue to follow. Thank you for your consultation. Please call me if you have any questions. Iza Jaramillo MD, FACP, FACC, FSCAI, FHRS, CCDS Interventional Cardiology Cardiac Electrophysiology Vascular Medicine and Endovascular Interventions Gregoria JARAMILLO MD Dec 19, 2017 9:20 am
[2017-12-19] MEDS: LEVETIRACETAM 1,000 MG (KEPPRA) TABLET PO SCH (10:17)
[2017-12-19] MEDS: KCL 20 MEQ POWDER FOR ORAL SOLUTION PO SCH (10:17)
[2017-12-19] MEDS: MAGNESIUM OXIDE (MAG-OX)400 MG TAB PO SCH (10:18)
[2017-12-19] MEDS: meTOprolol TARTRATE 25 MG (LOPRESSOR) TABLET PO SCH (10:18)
[2017-12-19] MEDS: FERROUS SULF 325 MG (IRON) TAB PO SCH (10:18)
[2017-12-19] MEDS: ACETAMINOPHEN 325 MG TABLET/CAPLET (TYLENOL) PO SCH ×2 (10:18→13:05)
[2017-12-19] MEDS: PANTOPRAZOLE 20 MG TABLET (PROTONIX) PO SCH (10:18)
[2017-12-19] MEDS: LACTOBACILLUS Acidoph/Bulgar (LACTINEX/FLORANEX) TAB PO SCH (10:18)
[2017-12-19] MEDS: cefTRIAXone 1 GM/NS 100 ML IVPB IV SCH ×2 (10:19)
[2017-12-19] MEDS: NYSTATIN ORAL SUSP 5 ML UDC PO SCH ×3 (10:19→12:21)
[2017-12-19] MEDS: DILTIAZEM 180 MG (CARDIZEM CD) CAP PO SCH (10:19)
[2017-12-19] MEDS: ONDANSETRON 4 MG/2 ML (SDV) Z0FRAN IV PRN (10:31)
[2017-12-19 12:00] VITALS: BP 123/74
--- NOTE | 2017-12-20 21:39 | OPERATIVE REPORT ---
DATE OF SERVICE: 12/18/2017 CONTINUATION/ADDENDUM This will be a continuation of the previous operative report and this paragraph would be second to the last. We then proceeded with dilatation of esophageal stricture. A CRE fixed guidewire balloon was then placed into the stomach and pulled back to the area of the stricture. We first proceeded to 3 atmospheres of pressure or 18 mmHg with mild resistance. We then proceeded to 4.5 atmospheres of pressure or 19 mm with again mild resistance. We then proceeded to 6 atmospheres of pressure or 20 mm in circumferential diameter with some mild to moderate resistance and left the balloon in place for approximately 60 seconds. The balloon was then desufflated and removed with visualization of good hemostasis as well as no mucosal tears. Endoscope was then slowly withdrawn while taking a second look and suctioning of residual air. Job ID: [id number] DocumentID: [id number] Dictated Date: 12/20/2017 15:18:43 Vice President Of Contracts Date: 12/20/2017 21:38:37 Dictated By: JOSE JUAN FAUST MD
== END 2017-12-19 14:30 | DRG 691 ==
LOC: EDUNIT# 10:13 → ER 10:14 → 4TH 12:42 → EDPENDDISTM 12-19 08:25
PROVIDERS: ADMIT Family Medicine; ATTEND Family Medicine
PROC: 0DB78ZX Excision of Stomach, Pylorus, Via Natural or Artificial Opening Endoscopic, Diagnostic (ICD-10-PCS; 2017-12-18)
PROC: 0D748ZZ Dilation of Esophagogastric Junction, Via Natural or Artificial Opening Endoscopic (ICD-10-PCS; 2017-12-18)
PROC: 0TF7XZZ Fragmentation in Left Ureter, External Approach (ICD-10-PCS; principal; 2017-12-18 12:57)
PROC: 0TJ98ZZ Inspection of Ureter, Via Natural or Artificial Opening Endoscopic (ICD-10-PCS; 2017-12-18 12:57)
PROC: 0DB48ZX Excision of Esophagogastric Junction, Via Natural or Artificial Opening Endoscopic, Diagnostic (ICD-10-PCS; 2017-12-18 12:57)
DX: N20.2 Calculus of kidney with calculus of ureter (principal); N13.8 Other obstructive and reflux uropathy; N39.0 Urinary tract infection, site not specified; B96.20 Unspecified Escherichia coli [E. coli] as the cause of diseases classified elsewhere; K29.71 Gastritis, unspecified, with bleeding; K22.70 Barrett's esophagus without dysplasia; K22.2 Esophageal obstruction; K21.0 Gastro-esophageal reflux disease with esophagitis; Z66 Do not resuscitate; E87.2 Acidosis; K92.1 Melena; I69.354 Hemiplegia and hemiparesis following cerebral infarction affecting left non-dominant side; I69.392 Facial weakness following cerebral infarction; E86.0 Dehydration; R79.1 Abnormal coagulation profile; K44.9 Diaphragmatic hernia without obstruction or gangrene; I12.9 Hypertensive chronic kidney disease with stage 1 through stage 4 chronic kidney disease, or unspecified chronic kidney disease; N18.9 Chronic kidney disease, unspecified; R53.83 Other fatigue; K86.9 Disease of pancreas, unspecified; F32.9 Major depressive disorder, single episode, unspecified; F03.90 Unspecified dementia, unspecified severity, without behavioral disturbance, psychotic disturbance, mood disturbance, and anxiety; D64.9 Anemia, unspecified; E87.6 Hypokalemia; S72.002D Fracture of unspecified part of neck of left femur, subsequent encounter for closed fracture with routine healing; Z87.891 Personal history of nicotine dependence; Z96.652 Presence of left artificial knee joint; Z87.19 Personal history of other diseases of the digestive system; Z79.01 Long term (current) use of anticoagulants
CPT/HCPCS: 36415; 51702; 70450; 71045; 71275; 74018; 74176; 80053; 81000; 82150; 82274; 82962; 83605; 83690; 85025; 85027; 85379; 85610; 85730; 87040; 87081; 87088; 87186; 93005; 93306; 93970; 96374

== ENCOUNTER → 2017-12-25 | Outpatient (CLI) | payer MEDICARE, MEDICAID ==
[~2017-12-25] VITALS: Ht 149.9 cm; Wt 82.2 kg
[~2017-12-25] MED LIST changes: +ACET325T38 PO; +CEPH-507 PO; +CNC1KV IJ; +DICL100G18 TOP; +FERR325T18 PO; +LACT1CAP45 PO; +LACT1CAP62 PO; +MAGN400O7 PO; +MAGN400T29 PO; +MELA3TAB PO; +MULT-166 PO; +NS IV 1000 ML 1,000 ML IV ONE; +NYST1000 PO; +OMG1KC PO; +ONDA4TAB10 PO; +WARF3TAB56 PO; +WARF4TAB70 PO
[2017-12-25 11:35] VITALS: BP 142/69
[2017-12-25 12:05] LABS: BASOPHILS # (AUTO) 0.1 10^3/uL (0.0-0.1); BASOPHILS % (AUTO) 1 % (0-10); EOSINOPHILS # (AUTO) 0.4 10^3/uL (0.0-0.3); EOSINOPHILS % (AUTO) 5 % (0-10); HEMATOCRIT 34 % (35-52); HEMOGLOBIN 11.4 G/DL (11.5-16.0); LYMPHOCYTES % (AUTO) 26 % (12-44); MEAN CORPUSCULAR HEMOGLOBIN 31 PG (25-34); MEAN CORPUSCULAR HGB CONC 33 G/DL (32-36); MEAN CORPUSCULAR VOLUME 92 FL (80-99); MEAN PLATELET VOLUME 10.1 FL (7.4-10.4); MONOCYTES # (AUTO) 0.5 X 10^3 (0.0-1.0); MONOCYTES % (AUTO) 6 % (0-12); NEUTROPHILS # (AUTO) 4.7 X 10^3 (1.8-7.8); NEUTROPHILS % (AUTO) 62 % (42-75); PLATELET COUNT 608 10^3/uL (130-400); RED BLOOD COUNT 3.74 10^6/uL (4.35-5.85); RED CELL DISTRIBUTION WIDTH 18.2 % (10.0-14.5); WHITE BLOOD COUNT 7.6 10^3/uL (4.3-11.0)
[2017-12-25 12:16] LABS: ALANINE AMINOTRANSFERASE 18 U/L (0-55); ALBUMIN 2.4 GM/DL (3.2-4.5); ALKALINE PHOSPHATASE 118 U/L (40-136); BILIRUBIN,TOTAL 0.2 MG/DL (0.1-1.0); BUN/CREATININE RATIO 11; CALCIUM 8.1 MG/DL (8.5-10.1); CARBON DIOXIDE 27 MMOL/L (21-32); CHLORIDE 105 MMOL/L (98-107); GFR ESTIMATED > 60; GLUCOSE 146 MG/DL (70-105); POTASSIUM 3.4 MMOL/L (3.6-5.0); SODIUM 139 MMOL/L (135-145); TOTAL PROTEIN 5.1 GM/DL (6.4-8.2)
[2017-12-25 12:50] VITALS: BP 142/69
[2017-12-25 13:26] LABS: ANISOCYTOSIS SLIGHT; BAND NEUTROPHILS 0 %; BASOPHILS % (MANUAL) 0 %; EOSINOPHILS % (MANUAL) 6 %; LYMPHOCYTES % (MANUAL) 26 %; MONOCYTES % (MANUAL) 6 %; NEUTROPHILS % (MANUAL) 62 %; POLYCHROMASIA SLIGHT
== END ==
LOC: SDC 11:08
PROVIDERS: ATTEND Nurse Practitioner Family
DX: E86.0 Dehydration (principal)
CPT/HCPCS: 36415; 80053; 85007; 85027; 96360

== ENCOUNTER → 2017-12-27 | Outpatient (CLI) | payer MEDICARE, MEDICAID ==
--- NOTE | 2017-12-19 18:52 | Anesthesia-General Post-Op ---
General Patient Condition Mental Status/LOC: Same as Preop Cardiovascular: Satisfactory Nausea/Vomiting: Absent Respiratory: Satisfactory Pain: Controlled Complications: Absent Post Op Complications Complications None Follow Up Care/Instructions Patient Instructions None needed. Anesthesia/Patient Condition Patient Condition Patient is doing well, no complaints, stable vital signs, no apparent adverse anesthesia problems. No complications reported per nursing. MECHELLE GARCIA CRNA Dec 19, 2017 18:52
[~2017-12-27] MED LIST changes: +IOHEXOL 350 MG/ML 100 ML (OMNIPAQUE 350) VIAL IV ONE; +NS 250 ML (IVPB) BAG IV ONE; -NS IV 1000 ML 1,000 ML IV ONE
--- NOTE | 2017-12-27 15:21 | Diagnostic Imaging Report ---
PROCEDURE: CT abdomen and pelvis with and without contrast. TECHNIQUE: Precontrast acquisitions were acquired through the abdomen and pelvis. Multiple contiguous axial images were obtained through the abdomen and pelvis after the administration of intravenous contrast. INDICATION: Nausea, vomiting, and diarrhea. History of abnormal appearance of the pancreas. COMPARISON: 12/16/2017 FINDINGS: Included portions of the lung bases are unremarkable. CT abdomen: There are now small calculi seen within the urinary bladder near the left UVJ. There has been interval clearance of calculi from the distal left ureter. Multiple nonobstructive left renal calculi are again identified. There has been interval migration of some calculi into the left renal pelvis, however. No renal or ureteral calculi are seen on the right. Additionally, there is no hydroureteronephrosis or other evidence of obstruction on the right. No focal renal masses are identified on either side. There is persistent fullness of the pancreatic head with mild blurring of the margins of the pancreatic head. There is no distinct focal pancreatic mass. Pancreatic duct is decompressed. Liver continues to show geographic hepatic steatosis. No focal enhancing hepatic mass-type lesions are seen. There is also persistent mild prominence of the intrahepatic and extrahepatic biliary ductal systems. Patient is status post previous cholecystectomy. The spleen and adrenal glands have a normal CT appearance. Small bowel loops are nondistended. Normal appendix cannot be adequately identified, but there is no pericecal inflammation. There is colonic diverticulosis, but no CT evidence of acute diverticulitis. Postsurgical changes of previous hernia repair noted. There is no loculated fluid collection, free fluid, nor free air within the abdomen. Mild to moderate calcified aortic and arterial atherosclerosis is noted. Bony structures show no acute abnormalities. CT pelvis: Urinary bladder is unopacified. Again, small calculi are noted in the region of the left UVJ. Small droplet of air is also noted within the [id number]-mpvhvwyth portion of the urinary bladder. There is no loculated fluid collection, free fluid, nor free air within the pelvis. No abnormal lymph nodes are seen. Bony structures show no acute abnormalities. IMPRESSION: 1. There has been interval clearance of calculi from the distal left ureter. Two small calculi are now seen in the region of the left UVJ; likely within the urinary bladder. If there is clinical suspicion that these may be retained within the ureter at the UVJ, repeat exam in prone positioning may be of benefit. 2. Multiple additional nonobstructive left renal calculi. Again, a few calculi have since migrated into the left renal pelvis. 3. Persistent abnormal fullness of the pancreatic head with peripancreatic stranding, but without focal identifiable mass. Again, findings could be on the basis of recent pancreatitis. Clinical correlation recommended. 4. Mild prominence of the intrahepatic and extrahepatic biliary ductal systems, which may be related to patient's age and previous cholecystectomy. If there is concern for biliary obstruction, ERCP or MRCP may be of benefit. 5. A few scattered colonic diverticula, but no CT evidence of acute diverticulitis. 6. Hepatic steatosis. 7. Small droplet of gas within the urinary bladder. Findings can be seen with recent instrumentation, as well as cystitis. Dictated by: Dictated on workstation # [id number]
== END ==
LOC: RAD 10:57
PROVIDERS: ATTEND Family Medicine
DX: N20.2 Calculus of kidney with calculus of ureter (principal); Q45.3 Other congenital malformations of pancreas and pancreatic duct; K76.0 Fatty (change of) liver, not elsewhere classified; Z90.49 Acquired absence of other specified parts of digestive tract
CPT/HCPCS: 74178